=== PATIENT | male | born 1945 | race African-American/Black ===

== ENCOUNTER 2016-04-19 09:17 | Inpatient (IN) | payer MEDICARE, OTHER ==
[~2016-04-19] VITALS: Ht 165.1 cm; Wt 100.0 kg
[~2016-04-19 09:17] MED LIST: AMLO5TAB22 PO; DEPA500T3 PO; GLUC10TA3 PO; HYDR-2768 PO; INVE9TAB IM; LISI20 PO; LISI40TA PO; METF-324 PO; NAPR-576 PO; PERP4 PO
[2016-04-19 09:20] VITALS: BP 130/60; PULSE 78; RESP 18; TEMP 98.2; O2SAT 95
[2016-04-19] MEDS ORDERED: DEXTROSE 5%-LACTATED RING INJ 1,000 ML IV SCH (09:24)
[2016-04-19] MEDS ORDERED: SODIUM CHLORIDE 0.9% FLUSH 5 ML FLUSH IVF PRN (09:30)
--- NOTE | 2016-04-19 10:06 | PD ---
HPI Chief Complaint: Fall Time Seen by Provider: 09:24 Travel History International Travel<30 days: No Contact w/Intl Traveler<30days: No Traveled to known affect area: No History of Present Illness HPI 70-year-old male presents by ambulance after he had a fall where he was found on the ground. Patient denies any pain currently but is a very poor historian. The ambulance team states that he had an episode of low sugar and fall yesterday but did not come to the hospital. Today given it was his second episode he had to come in. Accu-Chek with them was 38 and he was given 250 of D10 and then his Accu-Chek was 137. They state that his mentation was the same when his sugar was low where he was mumbling as he is now. Patient tells me he likes buffalo wings but cannot give me other history than he thinks he may be fell PFSH Past Medical History Arthritis: Yes Asthma: No Autoimmune Disease: No Blood Disorders: No Bipolar Disorder: Yes Anxiety: Yes Depression: Yes Heart Rhythm Problems: No Cancer: No Cardiovascular Problems: Yes High Cholesterol: No Chemotherapy: No Chest Pain: No Congestive Heart Failure: No COPD: No Cerebrovascular Accident: No Diabetes: Yes Patient Takes Glucophage: No Diminished Hearing: No Endocrine: Yes GERD: No Glaucoma: No Genitourinary: No Headaches: No Hepatitis: No Hiatal Hernia: No Hypertension: Yes Immune Disorder: No Kidney Stones: No Musculoskeletal: Yes Neurologic: Yes ( PER EVAC HAS HX OF NERVE DEFICIT/DAMAGE) Psychiatric: Yes (SCHIZOPHRENIA, BIPOLAR) Reproductive: No Respiratory: No Migraines: No Myocardial Infarction: No Radiation Therapy: No Renal Failure: No Schizophrenia: Yes Seizures: Yes Sickle Cell Disease: No Sleep Apnea: No Thyroid Disease: No Ulcer: No Tetanus Vaccination: Unknown Influenza Vaccination: Yes Past Surgical History Abdominal Surgery: No AICD: No Appendectomy: No Arteriovenous Shunt: No Cardiac Surgery: No Cholecystectomy: No Ear Surgery: No Endocrine Surgery: No Eye Surgery: No Genitourinary Surgery: No Gynecologic Surgery: No Insulin Pump: No Joint Replacement: No Neurologic Surgery: No Oral Surgery: No Pacemaker: No Thoracic Surgery: Yes Other Surgery: No Social History Alcohol Use: No Tobacco Use: No (03/27 PPD) Substance Use: No Allergies-Medications (Allergen,Severity, Reaction): Coded Allergies: No Known Allergies (Verified , 04/19/16) UNABLE TO CONFIRM ALLERGIES AT THIS TIME Reported Meds & Prescriptions Reported Meds & Active Scripts Active Reported Ultram (Tramadol HCl) 50 Mg Tab 50 Mg PO Q12HR Tradjenta (Linagliptin) 5 Mg Tab 5 Mg PO DAILY Flomax (Tamsulosin HCl) 0.4 Mg Cap 0.4 Mg PO HS Perphenazine 8 Mg Tab 8 Mg PO HS Ditropan (Oxybutynin Chloride) 5 Mg Tab 5 Mg PO BID Naprosyn (Naproxen) 500 Mg Tab 500 Mg PO BID Prinivil (Lisinopril) 20 Mg Tab 20 Mg PO DAILY Glucotrol XL (Glipizide) 10 Mg Srinath 10 Mg PO BID Lasix (Furosemide) 40 Mg Tab 40 Mg PO DAILY Colace (Docusate Sodium) 100 Mg Cap 100 Mg PO BID Depakote ER (Divalproex Sodium) 500 Mg Srinath 1,500 Mg PO HS Amlodipine (Amlodipine Besylate) 5 Mg Tab 5 Mg PO DAILY Review of Systems Except as stated in HPI: all other systems reviewed are Neg Physical Exam Narrative General: 70 y/o patient in no apparent distress wearing a baseball cap and baseball helmet that he wears all the time per staff Skin: Warm and dry Eyes: Pupils equal NECK: no pain with palpation and range of motion Cardiovascular: Regular rate and rhythm Respiratory: Normal respiratory effort noted, clear to auscultation bilaterally Abdomen: soft, nontender, nondistended Back: No step-offs, midline spine nontender with palpation Extremities: No pain over main joints Neuro: awake, moves all extremities, clear speech, knows name Data Data Last Documented VS Vital Signs Date Time Temp Pulse Resp B/P Pulse Ox O2 Delivery O2 Flow Rate FiO2 04/19/16 09:24 95 Room Air 04/19/16 09:20 98.2 78 18 130/60 Orders Basic Metabolic Panel (Bmp) (04/19/16 09:24) Complete Blood Count With Diff (04/19/16 09:24) Prothrombin Time / Inr (Pt) (04/19/16 09:24) Act Partial Throm Time (Ptt) (04/19/16 09:24) Chest, Single Ap (04/19/16 09:24) Pelvis, Ap Only (Routine) (04/19/16 09:24) Ct Brain W/O Iv Contrast(Rout) (04/19/16 09:24) Iv Access Insert/Monitor (04/19/16 09:24) Ecg Monitoring (04/19/16 09:24) Oximetry (04/19/16 09:24) Sodium Chloride 0.9% Flush (Ns Flush) (04/19/16 09:30) Electrocardiogram (04/19/16 ) Urinalysis - C+S If Indicated (04/19/16 09:24) Blood Glucose (04/19/16 09:24) Dextrose 5%-Lactated Ring Inj (D5-Lr Inj (04/19/16 09:24) Blood Glucose (04/19/16 10:04) Blood Glucose (04/19/16 10:45) Sodium Chlor 0.9% 1000 Ml Inj (Ns 1000 M (04/19/16 11:00) Cath For Specimen (04/19/16 10:48) Urine Culture (04/19/16 11:15) Ceftriaxone Inj (Rocephin Inj) (04/19/16 11:45) Admit Order (Ed Use Only) (04/19/16 11:45) Labs Laboratory Tests Test 04/19/16 04/19/16 10:05 11:15 White Blood Count 4.4 TH/MM3 Red Blood Count 3.59 MIL/MM3 Hemoglobin 11.2 GM/DL Hematocrit 33.9 % Mean Corpuscular Volume 94.6 FL Mean Corpuscular Hemoglobin 31.2 PG Mean Corpuscular Hemoglobin 32.9 % Concent Red Cell Distribution Width 15.1 % Platelet Count 206 TH/MM3 Mean Platelet Volume 10.0 FL Neutrophils (%) (Auto) 53.1 % Lymphocytes (%) (Auto) 30.6 % Monocytes (%) (Auto) 12.7 % Eosinophils (%) (Auto) 2.8 % Basophils (%) (Auto) 0.8 % Neutrophils # (Auto) 2.4 TH/MM3 Lymphocytes # (Auto) 1.4 TH/MM3 Monocytes # (Auto) 0.6 TH/MM3 Eosinophils # (Auto) 0.1 TH/MM3 Basophils # (Auto) 0.0 TH/MM3 CBC Comment DIFF FINAL Differential Comment Prothrombin Time 11.1 SEC Prothromb Time International 1.0 RATIO Ratio Activated Partial 25.1 SEC Thromboplast Time Sodium Level 140 MEQ/L Potassium Level 4.9 MEQ/L Chloride Level 105 MEQ/L Carbon Dioxide Level 33.5 MEQ/L Anion Gap 2 MEQ/L Blood Urea Nitrogen 41 MG/DL Creatinine 1.83 MG/DL Estimat Glomerular Filtration 45 ML/MIN Rate Random Glucose 77 MG/DL Calcium Level 9.5 MG/DL Urine Color YELLOW Urine Turbidity HAZY Urine pH 6.0 Urine Specific [place] 1.014 Urine Protein TRACE mg/dL Urine Glucose (UA) NEG mg/dL Urine Ketones NEG mg/dL Urine Occult Blood LARGE Urine Nitrite NEG Urine Bilirubin NEG Urine Urobilinogen LESS THAN 2.0 MG/DL Urine Leukocyte Esterase LARGE Urine RBC 152 /hpf Urine WBC /hpf Microscopic Urinalysis Comment CULTURE INDICATED MDM Medical Decision Making Medical Screen Exam Complete: Yes Emergency Medical Condition: Yes Medical Record Reviewed: Yes (past history confirmed) Interpretation(s) CBC & BMP Diagram 04/19/16 10:05 ua with uti Last 24 hours Impressions Pelvis X-Ray 04/19/16923 Signed Impressions: Service Date/Time: Tuesday, April 19, 2016 09:50 - CONCLUSION: Intact pelvis Porfirio Sharpe MD Head CT 04/19/16923 Signed Impressions: Service Date/Time: Tuesday, April 19, 2016 10:20 - CONCLUSION: Negative examination Porfirio Sharpe MD Chest X-Ray 04/19/16923 Signed Impressions: Service Date/Time: Tuesday, April 19, 2016 09:45 - CONCLUSION: No acute disease. Porfirio Sharpe MD Differential Diagnosis Hypoglycemia, renal failure, UTI, traumatic injury.... Narrative Course Will check blood work, trauma imaging and placed on D5 LR to prevent further dropping glucose but if continues to drop will need to be switched to D10 Initial Accu-Chek 77 but D5 has not been started so we will reassess and 15 minutes after on D5 Accu-Chek is now in the 60s so given trauma workup is negative and he can now have oral Will give oral glucose and reassess glucose now in eighties after lunch, but Given second episode of hypoglycemia since yesterday and Accu-Chek is continuing to drop. He'll need to be admitted in the hospital given he is on oral hypoglycemic medication with UTI and acute renal failure Physician Communication Physician Communication dr Fisher agrees to admission Diagnosis Primary Impression: Hypoglycemia Additional Impressions: Fall Qualified Code: W19.XXXA - Fall, initial encounter Acute renal failure Qualified Code: N17.9 - Acute renal failure, unspecified acute renal failure type UTI (urinary tract infection) Qualified Code: N39.0 - Urinary tract infection without hematuria, site unspecified Admitting Information Admitting Physician Requests: Admit Tegan Baez MD Apr 19, 2016 10:06
--- NOTE | 2016-04-19 10:10 | RADRPT ---
EXAM DATE/TIME: 04/19/2016 09:45 [facility] COMPARISON: CHEST PA & LAT, September 15, 2010, 13:49 report only INDICATIONS : Short of breath. MEDICAL HISTORY : None. SURGICAL HISTORY : None. ENCOUNTER: Initial ACUITY: 1 day PAIN SCORE: 0/10 LOCATION: Bilateral chest FINDINGS: A single view of the chest demonstrates the lungs to be symmetrically aerated without evidence of mas s, infiltrate or effusion. The cardiomediastinal contours are unremarkable. Osseous structures are intact. CONCLUSION: No acute disease. Porfirio Sharpe MD on April 19, 2016 at 10:08 Board Certified Radiologist. This report was verified electronically.
--- NOTE | 2016-04-19 10:11 | RADRPT ---
EXAM DATE/TIME: 04/19/2016 09:50 [facility] COMPARISON: No previous studies available for comparison. INDICATIONS : Bilateral hip pain with no known injury. MEDICAL HISTORY : None. SURGICAL HISTORY : None. ENCOUNTER: Initial ACUITY: 1 day PAIN SCORE: 0/10 LOCATION: Bilateral Pelvis FINDINGS: A single frontal view of the pelvis demonstrates no evidence of fracture. The bony pelvic ring is in tact. Bony mineralization is normal. The soft tissues are intact. CONCLUSION: Intact pelvis Porfirio Sharpe MD on April 19, 2016 at 10:08 Board Certified Radiologist. This report was verified electronically.
[2016-04-19 10:28] LABS: AUTOMATED NEUTROPHIL # 2.4 TH/MM3 (1.8-7.7); BASOPHIL % 0.8 % (0.0-2.0); EOSINOPHIL # 0.1 TH/MM3 (0-0.4); EOSINOPHIL % 2.8 % (0.0-4.0); HEMATOCRIT 33.9 % (39.0-51.0); HEMO FLAGS DIFF FINAL; LYMPH % 30.6 % (9.0-44.0); LYMPHOCYTE # 1.4 TH/MM3 (1.0-4.8); MEAN CELL VOLUME 94.6 FL (80.0-100.0); MEAN CORPUSCULAR HEMOGLOBIN 31.2 PG (27.0-34.0); MEAN CORPUSCULAR HGB CONC 32.9 % (32.0-36.0); MONO % 12.7 % (0.0-8.0); NEUT % 53.1 % (16.0-70.0); PLATELET COUNT 206 TH/MM3 (150-450); RED BLOOD COUNT 3.59 MIL/MM3 (4.50-5.90); RED CELL DISTRIBUTION WIDTH 15.1 % (11.6-17.2); WHITE BLOOD COUNT 4.4 TH/MM3 (4.0-11.0)
[2016-04-19 10:34] LABS: APTT (PATIENT) 25.1 SEC (24.3-30.1); PROTHROMBIN TIME - PATIENT 11.1 SEC (9.8-11.6)
--- NOTE | 2016-04-19 10:35 | RADRPT ---
EXAM DATE/TIME: 04/19/2016 10:20 [facility] COMPARISON: No previous studies available for comparison. INDICATIONS : Fall yesterday RADIATION DOSE: 56.35 CTDIvol (mGy) MEDICAL HISTORY : Hypertension. SURGICAL HISTORY : None. ENCOUNTER: Initial ACUITY: 1 day PAIN SCALE: 0/10 LOCATION: cranial TECHNIQUE: Multiple contiguous axial images were obtained of the head. Using automated exposure control and adj ustment of the mA and/or kV according to patient size, radiation dose was kept as low as reasonably a chievable to obtain optimal diagnostic quality images. FINDINGS: CEREBRUM: The ventricles are normal for age. No evidence of midline shift, mass lesion, hemorrhage or acute in farction. No extra-axial fluid collections are seen. POSTERIOR FOSSA: The cerebellum and brainstem are intact. The 4th ventricle is midline. The cerebellopontine angle i s unremarkable. EXTRACRANIAL: The visualized portion of the orbits is intact. SKULL: The calvaria is intact. No evidence of skull fracture. CONCLUSION: Negative examination Porfirio Sharpe MD on April 19, 2016 at 10:32 Board Certified Radiologist. This report was verified electronically.
[2016-04-19 10:41] LABS: BICARBONATE 33.5 MEQ/L (21.0-32.0); POTASSIUM 4.9 MEQ/L (3.5-5.1)
[2016-04-19] MEDS ORDERED: SODIUM CHLOR 0.9% 1000 ML INJ 1,000 ML IV ONE (11:00)
[2016-04-19] MEDS ORDERED: OXYB5TAB10 PO (11:15)
[2016-04-19] MEDS ORDERED: DEPA500T3 PO (11:15)
[2016-04-19] MEDS ORDERED: AMLO5TAB2 PO (11:15)
[2016-04-19] MEDS ORDERED: TAMS5CAP PO (11:15)
[2016-04-19] MEDS ORDERED: TRAD5TAB PO (11:15)
[2016-04-19] MEDS ORDERED: FURO1TAB60 PO (11:15)
[2016-04-19] MEDS ORDERED: ULTR50TA5 PO (11:15)
[2016-04-19] MEDS ORDERED: NAPR500 PO (11:15)
[2016-04-19] MEDS ORDERED: COLA100C3 PO (11:15)
[2016-04-19] MEDS ORDERED: PRIN20TA2 PO (11:15)
[2016-04-19] MEDS ORDERED: PERP8TAB4 PO (11:15)
[2016-04-19] MEDS ORDERED: GLIP-146 PO (11:15)
[2016-04-19 11:29] LABS: BLOOD, URINE LARGE (NEG); COMMENT (UR) CULTURE INDICATED; CULTURE IF INDICATED CULTURE INDICATED; GLUCOSE,URINE NEG (NEG); KETONE, URINE NEG (NEG); NITRITE,URINE NEG (NEG); URINE COLOR YELLOW (YELLW/STRAW)
[2016-04-19] MEDS ORDERED: cefTRIAXone INJ 1,000 MG in SODIUM CHLORIDE 0.9% INJ 100 ML IV ONE (11:45)
[2016-04-19] MEDS ORDERED: ACETAMINOPHEN 325 MG TAB PO PRN (13:45)
[2016-04-19] MEDS ORDERED: ONDANSETRON HCL 4 MG/2 ML VIAL IVP PRN (13:45)
[2016-04-19] MEDS ORDERED: SODIUM CHLORIDE 0.9% FLUSH 5 ML FLUSH FLUSH PRN (13:45)
--- NOTE | 2016-04-19 14:57 | EKG ---
Date Performed: 04/19/2016 Time Performed: 10:13:02 PTAGE: 70 years EKG: Significant baseline artifact Artifact precludes accurate rhythm interpretation BORDERLINE LEFT AXIS DEVIATION RIGHT BUNDLE BRANCH BLOCK Nonspecific T wave abnormality ABNORMAL ECG COMPARED TO PRIOR ELECTROCARDIOGRAM, No definite change although I cannot accurately compare rhythm due to artif act. PREVIOUS TRACING : 12/18/2012 13.16 DOCTOR: Danilo Hoang Interpretating Date/Time 04/19/2016 14:55:26
[2016-04-19 16:05] VITALS: BP 126/67; PULSE 79; RESP 18; O2SAT 98
[2016-04-19] MEDS: SODIUM CHLOR 0.9% 1000 ML INJ 1,000 ML IV SCH ×2 (16:46→22:28)
[2016-04-19] MEDS: HEPARIN SODIUM - SQ 10,000 UNITS/ML VIAL SQ SCH ×2 (16:46→22:45)
[2016-04-19 17:26] VITALS: BP 135/71
[2016-04-19 18:36] VITALS: BP 152/76; PULSE 64; RESP 20; TEMP 98.1; O2SAT 94
[2016-04-19 20:00] VITALS: BP 171/67; PULSE 103; RESP 20; TEMP 97.6; O2SAT 91
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
[2016-04-19] MEDS ORDERED: DEXTROSE 50% IN WATER 50 ML VIAL(D50) IV PUSH PRN (20:30)
[2016-04-19] MEDS ORDERED: GLUCAGON 1 MG/ML VIAL OTHER PRN (20:30)
[2016-04-19] MEDS ORDERED: INSULIN ASPART SUPPLEMENTAL SCALE SQ SCH (21:00)
[2016-04-19] MEDS: SODIUM CHLORIDE 0.9% FLUSH 5 ML FLUSH FLUSH SCH (21:00)
[2016-04-19] MEDS: TAMSULOSIN HCL 0.4 MG CAP PO SCH (22:27)
[2016-04-19] MEDS: PERPHENAZINE 4 MG TAB PO SCH (22:28)
[2016-04-19] MEDS: OXYBUTYNIN CHLORIDE 5 MG TAB PO SCH (22:28)
[2016-04-19] MEDS: DOCUSATE SODIUM 100 MG CAP PO SCH (22:28)
[2016-04-19] MEDS: DIVALPROEX SODIUM E.R. 500 MG TAB PO SCH (22:44)
[2016-04-20] VITALS: BP 155/73; PULSE 92; RESP 20; TEMP 97.3; O2SAT 93
[2016-04-20] MEDS ORDERED: HALOPERIDOL LACTATE 5 MG/ML AMP IM ONE (06:15)
[2016-04-20] MEDS ORDERED: DEXTROSE 5% IN WATE 1000ML INJ 1,000 ML IV SCH (06:15)
[2016-04-20] MEDS: HEPARIN SODIUM - SQ 10,000 UNITS/ML VIAL SQ SCH ×3 (06:37→22:54)
[2016-04-20] MEDS: OXYBUTYNIN CHLORIDE 5 MG TAB PO SCH ×2 (09:00→22:52)
[2016-04-20] MEDS: SODIUM CHLORIDE 0.9% FLUSH 5 ML FLUSH FLUSH SCH ×2 (09:00→22:52)
[2016-04-20] MEDS: amLODIPine BESYLATE 5 MG TAB PO SCH (09:00)
[2016-04-20] MEDS: DOCUSATE SODIUM 100 MG CAP PO SCH ×2 (09:46→22:52)
[2016-04-20] MEDS: cefTRIAXone INJ 1,000 MG in SODIUM CHLORIDE 0.9% INJ 100 ML IV SCH (13:19)
[2016-04-20] MEDS ORDERED: LINAGLIPTIN 5 MG PO SCH (16:00)
[2016-04-20] MEDS: SODIUM CHLOR 0.9% 1000 ML INJ 1,000 ML IV SCH (17:15)
[2016-04-20 17:16] VITALS: BP 144/70; PULSE 83; RESP 18; TEMP 98.5; O2SAT 95
--- NOTE | 2016-04-20 17:17 | HHI.PR ---
Subjective Remarks Patient denies cp/sob Patient is more coherent denies fevers/chills denies abdominal pain, nausea or vomiting states he ate well Objective Vitals Vital Signs Date Time Temp Pulse Resp B/P Pulse Ox O2 Delivery O2 Flow Rate FiO2 04/20/16 17:16 98.5 83 18 144/70 95 04/20/16 00:00 97.3 92 20 155/73 93 04/19/16 20:00 97.6 103 20 171/67 91 04/19/16 18:36 98.1 64 20 152/76 94 04/19/16 17:26 82 18 135/71 98 I/O 04/19/16 04/19/16 04/19/16 04/20/16 04/20/16 04/20/16 07:00 15:00 23:00 07:00 15:00 23:00 Intake Total 360 ml 890 ml 720 ml Output Total 520 ml Balance 360 ml 370 ml 720 ml Intake Oral 360 ml 890 ml 720 ml Output Urine Total 520 ml # Voids 5 3 # Bowel Movements 1 1 Result Diagram: 04/19/16 1005 04/19/16 1005 Imaging Last Impressions Pelvis X-Ray 04/19/16923 Signed Impressions: Service Date/Time: Tuesday, April 19, 2016 09:50 - CONCLUSION: Intact pelvis Porfirio Sharpe MD Head CT 04/19/16923 Signed Impressions: Service Date/Time: Tuesday, April 19, 2016 10:20 - CONCLUSION: Negative examination Porfirio Sharpe MD Chest X-Ray 04/19/16923 Signed Impressions: Service Date/Time: Tuesday, April 19, 2016 09:45 - CONCLUSION: No acute disease. Porfirio Sharpe MD Objective Remarks GENERAL: This is a well-nourished, well-developed patient, in no respiratory distress. SKIN: No rashes, ecchymoses or lesions. Cool and dry. HEAD: Atraumatic. Normocephalic. No temporal or scalp tenderness. EYES: Pupils equal round and reactive. Extraocular motions intact. No scleral icterus. No injection or drainage. ENT: Nose without bleeding, purulent drainage or septal hematoma. Throat without erythema, tonsillar hypertrophy or exudate. Uvula midline. Airway patent. NECK: Trachea midline. No JVD or lymphadenopathy. Supple, nontender, no meningeal signs. CARDIOVASCULAR: Regular rate and rhythm without murmurs, gallops, or rubs. RESPIRATORY: Clear to auscultation. Breath sounds equal bilaterally. No wheezes , rales, or rhonchi. GASTROINTESTINAL: Abdomen soft, non-tender, nondistended. No hepato-splenomegaly , or palpable masses. No guarding. Abdomen is obese MUSCULOSKELETAL: Extremities without clubbing, cyanosis, or edema. No joint tenderness, effusion, or edema noted. No calf tenderness. Negative Homans sign bilaterally. NEUROLOGICAL: Awake and alert. Cranial nerves II through XII intact. Motor and sensory grossly within normal limits. Five out of 5 muscle strength in all muscle groups. normal speech A/P Problem List: (1) Hypoglycemia ICD Code: E16.2 Status: Acute Plan: The patient was admitted to the medical floor. D5LR was discontinued, patient placed on normal saline Resume Tradjenta and Glipizide Continue to monitor Accu-Cheks and continue necessary with insulin NovoLog. (2) Fall ICD Code: W19.XXXA Status: Resolved Plan: Fall likely due to hypoglycemia. CT head on presentation to the hospital was negative. (3) UTI (urinary tract infection) ICD Code: N39.0 Status: Acute Plan: UTI likely caused the patient to have or oral intake and therefore became hypoglycemic. Patient was started on IV Rocephin, continue Urine culture showed immature growth, been reincubated (4) VENKAT (acute kidney injury) ICD Code: N17.9 Status: Acute Plan: Continue IV fluids, continue to monitor BUN/creatinine, strict I's and O' s. Avoid nephrotoxic agents (5) Encephalopathy ICD Code: G93.40 Status: Acute Plan: Encephalopathy likely metabolic secondary to hypoglycemia and possibly related to urinary tract infection. Seems to be improving, the patient is more coherent today. (6) HTN (hypertension) ICD Code: I10 Status: Acute Plan: Blood pressure stable. (7) Hyperlipidemia ICD Code: E78.5 Status: Chronic Plan: Continue statin. Check lipid profile. (8) Urinary incontinence ICD Code: R32 Status: Chronic Plan: Patient being treated with oxybutynin and Flomax. If oxybutynin is not ineffective the patient then will likely need outpatient urology follow-up. Discharge Planning Continue to monitor in the medical floor. Possible discharge in 1-2 days pending improvement of renal failure. Problem Qualifiers (1) Fall: Qualified Code: W19.XXXA - Fall, initial encounter (2) UTI (urinary tract infection): Qualified Code: N39.0 - Urinary tract infection without hematuria, site unspecified (3) HTN (hypertension): Qualified Code: I10 - Essential hypertension (4) Urinary incontinence: Qualified Code: R32 - Urinary incontinence, unspecified type Juan David Love MD Apr 20, 2016 17:17
[2016-04-20 20:00] VITALS: BP 126/77; PULSE 69; RESP 20; TEMP 98.2; O2SAT 95
[2016-04-20] MEDS: DIVALPROEX SODIUM E.R. 500 MG TAB PO SCH (22:52)
[2016-04-20] MEDS: TAMSULOSIN HCL 0.4 MG CAP PO SCH (22:52)
[2016-04-20] MEDS: PERPHENAZINE 4 MG TAB PO SCH (22:53)
[2016-04-20] MEDS: glipiZIDE 10 MG TAB PO SCH (22:53)
[2016-04-21] VITALS: BP 130/76; PULSE 82; RESP 19; TEMP 97.9; O2SAT 93
[2016-04-21] MEDS: SODIUM CHLOR 0.9% 1000 ML INJ 1,000 ML IV SCH ×3 (03:15→22:45)
[2016-04-21 04:57] VITALS: BP 139/65; PULSE 64; RESP 19; TEMP 97; O2SAT 93
[2016-04-21] MEDS: HEPARIN SODIUM - SQ 10,000 UNITS/ML VIAL SQ SCH ×3 (06:43→22:41)
[2016-04-21 08:00] VITALS: BP 138/65; PULSE 51; RESP 20; TEMP 96.3; O2SAT 96
[2016-04-21] MEDS: amLODIPine BESYLATE 5 MG TAB PO SCH (08:34)
[2016-04-21] MEDS: DOCUSATE SODIUM 100 MG CAP PO SCH ×2 (08:34→22:41)
[2016-04-21] MEDS: glipiZIDE 10 MG TAB PO SCH (08:34)
[2016-04-21] MEDS: SODIUM CHLORIDE 0.9% FLUSH 5 ML FLUSH FLUSH SCH ×2 (08:34→22:43)
[2016-04-21] MEDS: OXYBUTYNIN CHLORIDE 5 MG TAB PO SCH ×2 (08:34→22:42)
[2016-04-21 08:39] LABS: AUTOMATED NEUTROPHIL # 2.6 TH/MM3 (1.8-7.7); BASOPHIL % 0.6 % (0.0-2.0); EOSINOPHIL # 0.2 TH/MM3 (0-0.4); EOSINOPHIL % 2.9 % (0.0-4.0); HEMATOCRIT 33.3 % (39.0-51.0); HEMO FLAGS DIFF FINAL; LYMPH % 41.1 % (9.0-44.0); LYMPHOCYTE # 2.6 TH/MM3 (1.0-4.8); MEAN CELL VOLUME 94.5 FL (80.0-100.0); MEAN CORPUSCULAR HEMOGLOBIN 31.7 PG (27.0-34.0); MEAN CORPUSCULAR HGB CONC 33.6 % (32.0-36.0); MONO % 14.7 % (0.0-8.0); NEUT % 40.7 % (16.0-70.0); PLATELET COUNT 198 TH/MM3 (150-450); RED BLOOD COUNT 3.53 MIL/MM3 (4.50-5.90); RED CELL DISTRIBUTION WIDTH 15.2 % (11.6-17.2); WHITE BLOOD COUNT 6.3 TH/MM3 (4.0-11.0)
[2016-04-21 08:54] LABS: ALKALINE PHOSPHATASE 61 U/L (45-117); ALT (GPT) 25 U/L (12-78); ANION GAP 5 MEQ/L (5-15); AST (GOT) 17 U/L (15-37); BLOOD UREA NITROGEN 33 MG/DL (7-18); CHLORIDE 106 MEQ/L (98-107); GLOMERULAR FILTRATION RATE 52 ML/MIN (>89); MAGNESIUM 2.3 MG/DL (1.5-2.5); POTASSIUM 5.5 MEQ/L (3.5-5.1); SODIUM (NA) 138 MEQ/L (136-145); TOTAL BILIRUBIN ADULT 0.2 MG/DL (0.2-1.0)
--- NOTE | 2016-04-21 11:28 | HHI.PR ---
Subjective Remarks deferred entry - patient seen earlier at patient denies cp/sob denies dizziness no further episodes of hypoglycemia stable vital signs Objective Vitals Vital Signs Date Time Temp Pulse Resp B/P Pulse Ox O2 Delivery O2 Flow Rate FiO2 04/21/16 08:00 96.3 51 20 138/65 96 04/21/16 04:57 97.0 64 19 139/65 93 04/21/16 00:00 97.9 82 19 130/76 93 04/20/16 20:00 98.2 69 20 126/77 95 04/20/16 17:16 98.5 83 18 144/70 95 I/O 04/20/16 04/20/16 04/20/16 04/21/16 04/21/16 04/21/16 07:00 15:00 23:00 07:00 15:00 23:00 Intake Total 720 ml Output Total 300 ml 400 ml Balance 720 ml -300 ml -400 ml Intake Oral 720 ml Output Urine Total 300 ml 400 ml # Voids 3 2 # Bowel Movements 1 Result Diagram: 04/21/16 0749 04/21/1648 Imaging Last Impressions Pelvis X-Ray 04/19/16923 Signed Impressions: Service Date/Time: Tuesday, April 19, 2016 09:50 - CONCLUSION: Intact pelvis Porfirio Sharpe MD Head CT 04/19/16923 Signed Impressions: Service Date/Time: Tuesday, April 19, 2016 10:20 - CONCLUSION: Negative examination Porfirio Sharpe MD Chest X-Ray 04/19/16923 Signed Impressions: Service Date/Time: Tuesday, April 19, 2016 09:45 - CONCLUSION: No acute disease. Porfirio Sharpe MD Objective Remarks GENERAL: This is a well-nourished, well-developed patient, in no respiratory distress. SKIN: No rashes, ecchymoses or lesions. Cool and dry. HEAD: Atraumatic. Normocephalic. No temporal or scalp tenderness. EYES: Pupils equal round and reactive. Extraocular motions intact. No scleral icterus. No injection or drainage. ENT: Nose without bleeding, purulent drainage or septal hematoma. Throat without erythema, tonsillar hypertrophy or exudate. Uvula midline. Airway patent. NECK: Trachea midline. No JVD or lymphadenopathy. Supple, nontender, no meningeal signs. CARDIOVASCULAR: Regular rate and rhythm without murmurs, gallops, or rubs. RESPIRATORY: Clear to auscultation. Breath sounds equal bilaterally. No wheezes , rales, or rhonchi. GASTROINTESTINAL: Abdomen soft, non-tender, nondistended. No hepato-splenomegaly , or palpable masses. No guarding. Abdomen is obese MUSCULOSKELETAL: Extremities without clubbing, cyanosis, or edema. No joint tenderness, effusion, or edema noted. No calf tenderness. Negative Homans sign bilaterally. NEUROLOGICAL: Awake and alert. Cranial nerves II through XII intact. Motor and sensory grossly within normal limits. Five out of 5 muscle strength in all muscle groups. normal speech Medications and IVs Current Medications Medications (Trade) Dose Ordered Sig/Arpita Route Start Time Stop Time Status Last Admin (NS Flush) 2 ml UNSCH PRN FLUSH 04/19/16 13:45 (NS Flush) 2 ml BID FLUSH 04/19/16 21:00 04/21/16 22:43 (Tylenol) 650 mg Q4H PRN PO 04/19/16 13:45 (Zofran Inj) 4 mg Q6H PRN IVP 04/19/16 13:45 Heparin Sodium (Porcine) 5000 units 5,000 units Q8H SQ 04/19/16 15:00 04/21/16 22:41 (Rocephin Inj/NS Inj) 100 ml @ 200 mls/hr Q24H IV 04/20/16 12:00 04/21/16 11:58 (Norvasc) 5 mg DAILY PO 04/20/16 09:00 04/21/16 08:34 (Depakote Er) 1,500 mg HS PO 04/19/16 21:00 04/21/16 22:41 (Colace) 100 mg BID PO 04/19/16 21:00 04/21/16 22:41 (Ditropan) 5 mg BID PO 04/19/16 21:00 04/21/16 22:42 (Trilafon) 8 mg HS PO 04/19/16 21:00 04/21/16 22:42 (Flomax) 0.4 mg HS PO 04/19/16 21:00 04/21/16 22:41 (D50w (Vial) Inj) 25 ml UNSCH PRN IV PUSH 04/19/16 20:30 (Glucagon Inj) 1 mg UNSCH PRN OTHER 04/19/16 20:30 Patient Own Medication PT OWN MED: Linaglip... DAILY PO 04/20/16 16:00 Hold (NS 1000 ml Inj) 1,000 ml @ 150 mls/hr Q6H40M IV 04/20/16 17:15 04/21/16 22:45 (Glucotrol) 5 mg BID PO 04/21/16 21:00 04/21/16 22:42 A/P Problem List: (1) Hypoglycemia ICD Code: E16.2 Status: Acute Plan: The patient was admitted to the medical floor. D5LR was discontinued, patient placed on normal saline Resume Tradjenta and Glipizide Continue to monitor Accu-Cheks and continue necessary with insulin NovoLog. 04/21 Patient blood sugar is greatly improved down from 200 to 96. This is probably to tight of a control and predisposes patient to hypoglycemia. Will decrease the dose of Glypizide to 5 mg po bid. hba1c 6.4 (2) Fall ICD Code: W19.XXXA Status: Resolved Plan: Fall likely due to hypoglycemia. CT head on presentation to the hospital was negative. (3) UTI (urinary tract infection) ICD Code: N39.0 Status: Acute Plan: UTI likely caused the patient to have or oral intake and therefore became hypoglycemic. Patient was started on IV Rocephin, continue Urine culture showed immature growth, been reincubated (4) VENKAT (acute kidney injury) ICD Code: N17.9 Status: Acute Plan: Continue IV fluids, continue to monitor BUN/creatinine, strict I's and O' s. Avoid nephrotoxic agents (5) Encephalopathy ICD Code: G93.40 Status: Acute Plan: Encephalopathy likely metabolic secondary to hypoglycemia and possibly related to urinary tract infection. Seems to be improving, the patient is more coherent today. (6) HTN (hypertension) ICD Code: I10 Status: Acute Plan: Blood pressure stable. (7) Hyperlipidemia ICD Code: E78.5 Status: Chronic Plan: Continue statin. Check lipid profile. (8) Urinary incontinence ICD Code: R32 Status: Chronic Plan: Patient being treated with oxybutynin and Flomax. If oxybutynin is not ineffective the patient then will likely need outpatient urology follow-up. Discharge Planning Continue to monitor in the medical floor. Possible discharge in 1-2 days pending improvement of renal failure. Problem Qualifiers (1) Fall: Qualified Code: W19.XXXA - Fall, initial encounter (2) UTI (urinary tract infection): Qualified Code: N39.0 - Urinary tract infection without hematuria, site unspecified (3) HTN (hypertension): Qualified Code: I10 - Essential hypertension (4) Urinary incontinence: Qualified Code: R32 - Urinary incontinence, unspecified type Juan David Love MD Apr 21, 2016 11:28
[2016-04-21] MEDS ORDERED: SODIUM POLYSTYRENE SULFONATE SUSP 15 GM/60 ML CUP PO ONE (11:30)
[2016-04-21] MEDS: cefTRIAXone INJ 1,000 MG in SODIUM CHLORIDE 0.9% INJ 100 ML IV SCH (11:58)
[2016-04-21 12:00] VITALS: BP 137/86; PULSE 62; RESP 20; TEMP 97.6; O2SAT 95
[2016-04-21 13:23] LABS: HEMOGLOBIN A1a 1.4 %; HEMOGLOBIN Ao 81.2 %; HEMOGLOBIN F 1.2 %; HEMOGLOBIN LA1C 2.6 %; HEMOGLOBIN P3 6.8 %
[2016-04-21 16:00] VITALS: BP 143/74; PULSE 52; RESP 20; TEMP 98.3; O2SAT 96
[2016-04-21 21:30] VITALS: BP 126/65; PULSE 58; RESP 17; TEMP 98.6; O2SAT 96
[2016-04-21] MEDS: TAMSULOSIN HCL 0.4 MG CAP PO SCH (22:41)
[2016-04-21] MEDS: DIVALPROEX SODIUM E.R. 500 MG TAB PO SCH (22:41)
[2016-04-21] MEDS: PERPHENAZINE 4 MG TAB PO SCH (22:42)
[2016-04-21] MEDS: glipiZIDE 5 MG TAB PO SCH (22:42)
[2016-04-22] VITALS (7 sets, daily range): BP systolic 112–160; BP diastolic 57–89; PULSE 58–88; RESP 18–22; TEMP 96.5–98.1; O2SAT 93–97
[2016-04-22] MEDS: SODIUM CHLOR 0.9% 1000 ML INJ 1,000 ML IV SCH ×4 (01:56→21:05)
[2016-04-22] MEDS: HEPARIN SODIUM - SQ 10,000 UNITS/ML VIAL SQ SCH ×3 (06:02→21:34)
[2016-04-22] MEDS: DOCUSATE SODIUM 100 MG CAP PO SCH ×2 (08:12→21:04)
[2016-04-22] MEDS: amLODIPine BESYLATE 5 MG TAB PO SCH (08:12)
[2016-04-22] MEDS: OXYBUTYNIN CHLORIDE 5 MG TAB PO SCH ×2 (08:12→21:04)
[2016-04-22] MEDS: glipiZIDE 5 MG TAB PO SCH ×2 (08:12→21:04)
[2016-04-22] MEDS: cefTRIAXone INJ 1,000 MG in SODIUM CHLORIDE 0.9% INJ 100 ML IV SCH (12:16)
[2016-04-22] MEDS: SODIUM CHLORIDE 0.9% FLUSH 5 ML FLUSH FLUSH SCH ×2 (12:17→21:04)
[2016-04-22] MEDS: CIPROFLOXACIN 400 MG PREMIX 200 ML IV SCH ×2 (16:39→21:04)
[2016-04-22] MEDS: TAMSULOSIN HCL 0.4 MG CAP PO SCH (21:04)
[2016-04-22] MEDS: DIVALPROEX SODIUM E.R. 500 MG TAB PO SCH (21:04)
[2016-04-22] MEDS: PERPHENAZINE 4 MG TAB PO SCH (21:05)
--- NOTE | 2016-04-22 21:17 | HHI.PR ---
Subjective Remarks Patient refusing labs patient feels fine denies fevers/chills denies cp/sob stable vital signs good urine output Objective Vitals Vital Signs Date Time Temp Pulse Resp B/P Pulse Ox O2 Delivery O2 Flow Rate FiO2 04/22/16 20:00 97.8 88 22 126/69 95 04/22/16 16:26 98.1 71 22 135/65 95 04/22/16 12:21 97.8 72 22 124/89 95 04/22/16 08:06 96.5 71 22 112/57 95 04/22/16 05:37 58 19 136/72 93 04/22/16 04:30 97.5 69 19 160/84 97 04/22/16 00:00 98.0 60 18 125/60 95 04/21/16 21:30 98.6 58 17 126/65 96 I/O 04/21/16 04/21/16 04/21/16 04/22/16 04/22/16 04/22/16 07:00 15:00 23:00 07:00 15:00 23:00 Intake Total 840 ml 280 ml 1750 ml 600 ml Output Total 400 ml 500 ml 1000 ml Balance -400 ml 340 ml 280 ml 750 ml 600 ml Intake Oral 840 ml 280 ml 800 ml 600 ml IV Total 950 ml Output Urine Total 400 ml 500 ml 1000 ml # Voids 3 2 # Bowel Movements 1 0 1 Result Diagram: 04/21/1649 04/21/1648 Imaging Last Impressions Pelvis X-Ray 04/19/16923 Signed Impressions: Service Date/Time: Tuesday, April 19, 2016 09:50 - CONCLUSION: Intact pelvis Porfirio Sharpe MD Head CT 04/19/16923 Signed Impressions: Service Date/Time: Tuesday, April 19, 2016 10:20 - CONCLUSION: Negative examination Porfirio Sharpe MD Chest X-Ray 04/19/16923 Signed Impressions: Service Date/Time: Tuesday, April 19, 2016 09:45 - CONCLUSION: No acute disease. Porfirio Sharpe MD Objective Remarks GENERAL: This is a well-nourished, well-developed patient, in no respiratory distress. SKIN: No rashes, ecchymoses or lesions. Cool and dry. HEAD: Atraumatic. Normocephalic. No temporal or scalp tenderness. EYES: Pupils equal round and reactive. Extraocular motions intact. No scleral icterus. No injection or drainage. ENT: Nose without bleeding, purulent drainage or septal hematoma. Throat without erythema, tonsillar hypertrophy or exudate. Uvula midline. Airway patent. NECK: Trachea midline. No JVD or lymphadenopathy. Supple, nontender, no meningeal signs. CARDIOVASCULAR: Regular rate and rhythm without murmurs, gallops, or rubs. RESPIRATORY: Clear to auscultation. Breath sounds equal bilaterally. No wheezes , rales, or rhonchi. GASTROINTESTINAL: Abdomen soft, non-tender, nondistended. No hepato-splenomegaly , or palpable masses. No guarding. Abdomen is obese MUSCULOSKELETAL: Extremities without clubbing, cyanosis, or edema. No joint tenderness, effusion, or edema noted. No calf tenderness. Negative Homans sign bilaterally. NEUROLOGICAL: Awake and alert. Cranial nerves II through XII intact. Motor and sensory grossly within normal limits. Five out of 5 muscle strength in all muscle groups. normal speech Medications and IVs Current Medications Medications (Trade) Dose Ordered Sig/Arpita Route Start Time Stop Time Status Last Admin (NS Flush) 2 ml UNSCH PRN FLUSH 04/19/16 13:45 (NS Flush) 2 ml BID FLUSH 04/19/16 21:00 04/22/16 21:04 (Tylenol) 650 mg Q4H PRN PO 04/19/16 13:45 (Zofran Inj) 4 mg Q6H PRN IVP 04/19/16 13:45 (Heparin Inj) 5,000 units Q8H SQ 04/19/16 15:00 04/22/16 16:35 (Norvasc) 5 mg DAILY PO 04/20/16 09:00 04/22/16 08:12 (Depakote Er) 1,500 mg HS PO 04/19/16 21:00 04/22/16 21:04 (Colace) 100 mg BID PO 04/19/16 21:00 04/22/16 21:04 (Ditropan) 5 mg BID PO 04/19/16 21:00 04/22/16 21:04 (Trilafon) 8 mg HS PO 04/19/16 21:00 04/22/16 21:05 (Flomax) 0.4 mg HS PO 04/19/16 21:00 04/22/16 21:04 (D50w (Vial) Inj) 25 ml UNSCH PRN IV PUSH 04/19/16 20:30 (Glucagon Inj) 1 mg UNSCH PRN OTHER 04/19/16 20:30 Patient Own Medication PT OWN MED: Linaglip... DAILY PO 04/20/16 16:00 Hold (NS 1000 ml Inj) 1,000 ml @ 150 mls/hr Q6H40M IV 04/20/16 17:15 04/22/16 01:56 Glipizide 5 mg 5 mg BID PO 04/21/16 21:00 04/22/16 21:04 (Cipro 400 Mg Premix) 200 ml @ 200 mls/hr Q8H IV 04/22/16 14:00 04/22/16 21:04 Urinary Catheter: No Vascular Central Line Catheter: No A/P Problem List: (1) Hypoglycemia ICD Code: E16.2 Status: Acute (2) Fall ICD Code: W19.XXXA Status: Resolved (3) UTI (urinary tract infection) ICD Code: N39.0 Status: Acute (4) VENKAT (acute kidney injury) ICD Code: N17.9 Status: Acute (5) Encephalopathy ICD Code: G93.40 Status: Acute (6) HTN (hypertension) ICD Code: I10 Status: Acute (7) Hyperlipidemia ICD Code: E78.5 Status: Chronic (8) Urinary incontinence ICD Code: R32 Status: Chronic (9) Hyperkalemia ICD Code: E87.5 Status: Acute Plan: Likely due to decreased K excretion due to UTI. Added potassium restriction to diet and patient is sp Kayexalate therapy on 04/21. However patient is refusing lab draws. Will check BMP in am. Assessment and Plan (1) Hypoglycemia Plan: The patient was admitted to the medical floor. Initially treated with D5LR and oral hypoglycemics held D5LR was discontinued, patient placed on normal saline Resumed Tradjenta and Glipizide Continue to monitor Accu-Cheks and continue necessary with insulin NovoLog. 04/21 Patient blood sugar is greatly improved down from 200 to 96. This is probably to tight of a control and predisposes patient to hypoglycemia. Will decrease the dose of Glypizide to 5 mg po bid. hba1c 6.4 04/22 Blood sugars with better control. Continue same dose Glipizide and Tradjenta for now. Glipizide may be titrated up if blood sugars start to rise. (2) Fall Plan: Fall likely due to hypoglycemia. CT head on presentation to the hospital was negative. (3) UTI (urinary tract infection) Plan: UTI likely caused the patient to have or oral intake and therefore became hypoglycemic. Patient was started on IV Rocephin, continue 04/22 Urine culture shows Enterococcus faecalis - Will switch antibiotic to IV Ciprofloxacin - may be discharged on oral ciprofloxacin to complete 10 days. (4) VENKAT (acute kidney injury) Plan: Continue IV fluids, continue to monitor BUN/creatinine, strict I's and O' s. Avoid nephrotoxic agents. 04/22 Check renal us. Patient refusing labs, however patient has good urine output and intake. Continue to monitor BMP. (5) Encephalopathy Plan: Encephalopathy likely metabolic secondary to hypoglycemia and possibly related to urinary tract infection. Seems to be improving, the patient is more coherent today. (6) HTN (hypertension) Plan: Blood pressure stable. Continue amlodipine (7) Hyperlipidemia Plan: Continue statin. Check lipid profile. (8) Urinary incontinence Plan: Patient being treated with oxybutynin and Flomax. If oxybutynin is not ineffective the patient then will likely need outpatient urology follow-up. Discharge Planning Possible Dc in am after renal us, K and creatinine improved. Problem Qualifiers (1) Fall: Qualified Code: W19.XXXA - Fall, initial encounter (2) UTI (urinary tract infection): Qualified Code: N39.0 - Urinary tract infection without hematuria, site unspecified (3) HTN (hypertension): Qualified Code: I10 - Essential hypertension (4) Urinary incontinence: Qualified Code: R32 - Urinary incontinence, unspecified type Juan David Love MD Apr 22, 2016 21:17
[2016-04-23] VITALS: BP 120/70; PULSE 82; RESP 18; TEMP 98.8; O2SAT 96
[2016-04-23] MEDS: SODIUM CHLOR 0.9% 1000 ML INJ 1,000 ML IV SCH ×3 (00:43→15:57)
[2016-04-23 04:00] VITALS: BP 120/88; PULSE 80; RESP 20; TEMP 97.2; O2SAT 98
[2016-04-23] MEDS: HEPARIN SODIUM - SQ 10,000 UNITS/ML VIAL SQ SCH ×3 (05:20→22:55)
[2016-04-23] MEDS: CIPROFLOXACIN 400 MG PREMIX 200 ML IV SCH ×3 (05:20→22:54)
[2016-04-23 07:53] VITALS: BP 125/58; PULSE 56; RESP 22; TEMP 96.9; O2SAT 92
[2016-04-23] MEDS: amLODIPine BESYLATE 5 MG TAB PO SCH (09:00)
[2016-04-23] MEDS: glipiZIDE 5 MG TAB PO SCH ×2 (09:00→20:59)
[2016-04-23] MEDS: OXYBUTYNIN CHLORIDE 5 MG TAB PO SCH ×2 (10:07→20:59)
[2016-04-23] MEDS: DOCUSATE SODIUM 100 MG CAP PO SCH ×2 (10:07→20:59)
[2016-04-23] MEDS: SODIUM CHLORIDE 0.9% FLUSH 5 ML FLUSH FLUSH SCH ×2 (10:08→20:59)
[2016-04-23 12:25] VITALS: BP 124/62; PULSE 62; RESP 22; TEMP 97.2; O2SAT 96
[2016-04-23] MEDS ORDERED: SODIUM POLYSTYRENE SULFONATE SUSP 15 GM/60 ML CUP PO ONE (13:00)
[2016-04-23 16:48] VITALS: BP 144/66; PULSE 64; RESP 22; TEMP 97.4; O2SAT 93
[2016-04-23 20:00] VITALS: BP 142/90; PULSE 78; RESP 30; TEMP 98.9; O2SAT 93
[2016-04-23] MEDS: DIVALPROEX SODIUM E.R. 500 MG TAB PO SCH (20:59)
[2016-04-23] MEDS: TAMSULOSIN HCL 0.4 MG CAP PO SCH (20:59)
[2016-04-23] MEDS: PERPHENAZINE 4 MG TAB PO SCH (20:59)
[2016-04-24] VITALS: BP 130/70; PULSE 78; RESP 22; TEMP 98.7; O2SAT 94
[2016-04-24] MEDS: SODIUM CHLOR 0.9% 1000 ML INJ 1,000 ML IV SCH (00:01)
[2016-04-24 04:00] VITALS: BP 132/82; PULSE 80; RESP 20; TEMP 98.8; O2SAT 93
[2016-04-24] MEDS: HEPARIN SODIUM - SQ 10,000 UNITS/ML VIAL SQ SCH ×2 (05:10→12:03)
[2016-04-24] MEDS: CIPROFLOXACIN 400 MG PREMIX 200 ML IV SCH ×2 (05:10→12:28)
--- NOTE | 2016-04-24 07:23 | HHI.PR ---
Subjective Remarks Date of service 04/23/16. Late entry. Patient seen the morning of 04/23/16. - Patient sitting up in chair. Says he is feeling well. Denies any chest pain or shortness of breath. He appears cooperative on my exam, however nursing reports he has refused medications in the past. Objective Vital Signs Date Time Temp Pulse Resp B/P Pulse Ox O2 Delivery O2 Flow Rate FiO2 04/24/16 04:00 98.8 80 20 132/82 93 04/24/16 00:00 98.7 78 22 130/70 94 04/23/16 20:00 98.9 78 30 142/90 93 04/23/16 16:48 97.4 64 22 144/66 93 04/23/16 12:25 97.2 62 22 124/62 96 04/23/16 07:53 96.9 56 22 125/58 92 I/O 04/23/16 04/23/16 04/23/16 04/24/16 04/24/16 04/24/16 07:00 15:00 23:00 07:00 15:00 23:00 Intake Total 200 ml 480 ml 634 ml Output Total 900 ml 750 ml 900 ml Balance -700 ml 480 ml -750 ml -266 ml Intake Oral 480 ml IV Total 200 ml 634 ml Output Urine Total 900 ml 750 ml 900 ml # Voids 5 3 1 # Bowel Movements 1 Result Diagram: 04/21/16 0749 04/21/16 0748 Objective Remarks GENERAL: patient sitting up in chair at bedside. Alert. SKIN: Warm and dry. HEAD: Normocephalic. EYES: No scleral icterus. No injection or drainage. NECK: Supple, trachea midline. No JVD. CARDIOVASCULAR: Regular rate and rhythm without murmurs, gallops, or rubs. RESPIRATORY: Breath sounds equal bilaterally. No accessory muscle use. GASTROINTESTINAL: Abdomen soft, non-tender, nondistended. MUSCULOSKELETAL: No cyanosis. +1 peripheral edema bilateral lower extremities. No broken skin BACK: Nontender without obvious deformity. No CVA tenderness. A/P Assessment and Plan //Hypoglycemia Plan: The patient was admitted to the medical floor. Initially treated with D5LR and oral hypoglycemics held D5LR was discontinued, patient placed on normal saline Resumed Tradjenta and Glipizide Continue to monitor Accu-Cheks and continue necessary with insulin NovoLog. 04/21 Patient blood sugar is greatly improved down from 200 to 96. This is probably to tight of a control and predisposes patient to hypoglycemia. Will decrease the dose of Glypizide to 5 mg po bid. hba1c 6.4 04/22 Blood sugars with better control. Continue same dose Glipizide and Tradjenta for now. Glipizide may be titrated up if blood sugars start to rise. // Fall Plan: Fall likely due to hypoglycemia. CT head on presentation to the hospital was negative. //UTI (urinary tract infection) -UTI likely caused the patient to have or oral intake and therefore became hypoglycemic. Patient was started on IV Rocephin, continue 04/22 Urine culture shows Enterococcus faecalis - Will switch antibiotic to IV Ciprofloxacin - may be discharged on oral ciprofloxacin to complete 10 days. -04/23. Continue ciprofloxacin to complete 10 days of treatment. -Continue Cipro . //VENKAT (acute kidney injury) Plan: Continue IV fluids, continue to monitor BUN/creatinine, strict I's and O' s. Avoid nephrotoxic agents. 04/22 Check renal us. Patient refusing labs, however patient has good urine output and intake. Continue to monitor BMP. -04/23. Patient refused renal ultrasound and labs. We'll follow-up labs tomorrow. //Encephalopathy -Encephalopathy likely metabolic secondary to hypoglycemia and possibly related to urinary tract infection. -Improved. Patient coherent Continue monitor //HTN (hypertension) Plan: Blood pressure stable. Continue amlodipine //Hyperlipidemia. Chronic -Continue statin. Check lipid profile. //Hyperkalemia. On 04/21. -04/23 Patient refused further labs today. We'll order Kayexalate, which patient took //Urinary incontinence Plan: Patient being treated with oxybutynin and Flomax. If oxybutynin is not ineffective the patient then will likely need outpatient urology follow-up. Discharge Planning possible discharge tomorrow pending labs. -We'll need 10 day course of ciprofloxacin Ulises Freeman MD Apr 24, 2016 07:23
[2016-04-24 07:57] VITALS: BP 140/71; PULSE 58; RESP 18; TEMP 96.2; O2SAT 92
[2016-04-24] MEDS: SODIUM CHLORIDE 0.9% FLUSH 5 ML FLUSH FLUSH SCH (09:00)
[2016-04-24] MEDS: glipiZIDE 5 MG TAB PO SCH (09:28)
[2016-04-24] MEDS: amLODIPine BESYLATE 5 MG TAB PO SCH (09:28)
[2016-04-24] MEDS: DOCUSATE SODIUM 100 MG CAP PO SCH (09:28)
[2016-04-24] MEDS: OXYBUTYNIN CHLORIDE 5 MG TAB PO SCH (09:31)
[2016-04-24 12:33] VITALS: BP 119/57; PULSE 55; RESP 18; TEMP 96.1; O2SAT 96
[2016-04-24 13:20] LABS: AUTOMATED NEUTROPHIL # 2.3 TH/MM3 (1.8-7.7); BASOPHIL % 0.7 % (0.0-2.0); EOSINOPHIL # 0.3 TH/MM3 (0-0.4); EOSINOPHIL % 4.9 % (0.0-4.0); HEMATOCRIT 33.9 % (39.0-51.0); HEMO FLAGS DIFF FINAL; LYMPH % 37.8 % (9.0-44.0); MEAN CELL VOLUME 95.1 FL (80.0-100.0); MEAN CORPUSCULAR HEMOGLOBIN 31.3 PG (27.0-34.0); MEAN CORPUSCULAR HGB CONC 32.9 % (32.0-36.0); MONO % 12.2 % (0.0-8.0); NEUT % 44.4 % (16.0-70.0); PLATELET COUNT 166 TH/MM3 (150-450); RED BLOOD COUNT 3.57 MIL/MM3 (4.50-5.90); RED CELL DISTRIBUTION WIDTH 15.3 % (11.6-17.2); WHITE BLOOD COUNT 5.2 TH/MM3 (4.0-11.0)
[2016-04-24 13:30] LABS: BICARBONATE 25.5 MEQ/L (21.0-32.0); MAGNESIUM 1.8 MG/DL (1.5-2.5); POTASSIUM 4.8 MEQ/L (3.5-5.1)
--- NOTE | 2016-04-24 13:52 | HHI.PR ---
Subjective Remarks Date of service 04/24/16. Patient seen this morning. Says he feels well. Denies any chest pain or shortness of breath. Initially refused to have labs drawn. Subsequently agreed when his social work assistant asked him to. Objective Vital Signs Date Time Temp Pulse Resp B/P Pulse Ox O2 Delivery O2 Flow Rate FiO2 04/24/16 12:33 96.1 55 18 119/57 96 04/24/16 07:57 96.2 58 18 140/71 92 04/24/16 04:00 98.8 80 20 132/82 93 04/24/16 00:00 98.7 78 22 130/70 94 04/23/16 20:00 98.9 78 30 142/90 93 04/23/16 16:48 97.4 64 22 144/66 93 I/O 04/23/16 04/23/16 04/23/16 04/24/16 04/24/16 04/24/16 07:00 15:00 23:00 07:00 15:00 23:00 Intake Total 200 ml 480 ml 634 ml Output Total 900 ml 750 ml 900 ml Balance -700 ml 480 ml -750 ml -266 ml Intake Oral 480 ml IV Total 200 ml 634 ml Output Urine Total 900 ml 750 ml 900 ml # Voids 5 3 1 # Bowel Movements 1 Result Diagram: 04/24/16 1300 04/24/16 1300 Objective Remarks GENERAL: patient sitting up in chair at bedside. Alert. SKIN: Warm and dry. HEAD: Normocephalic. EYES: No scleral icterus. No injection or drainage. NECK: Supple, trachea midline. No JVD. CARDIOVASCULAR: Regular rate and rhythm without murmurs, gallops, or rubs. RESPIRATORY: Breath sounds equal bilaterally. No accessory muscle use. GASTROINTESTINAL: Abdomen soft, non-tender, nondistended. MUSCULOSKELETAL: No cyanosis. +1 peripheral edema bilateral lower extremities. No change. No broken skin BACK: Nontender without obvious deformity. No CVA tenderness. A/P Assessment and Plan //Hypoglycemia -The patient was admitted to the medical floor. -Initially treated with D5LR and oral hypoglycemics held D5LR was discontinued, patient placed on normal saline Resumed Tradjenta and Glipizide Continue to monitor Accu-Cheks and continue necessary with insulin NovoLog. 04/21 Patient blood sugar is greatly improved down from 200 to 96. This is probably to tight of a control and predisposes patient to hypoglycemia. Will decrease the dose of Glypizide to 5 mg po bid. hba1c 6.4 04/22 Blood sugars with better control. Continue same dose Glipizide and Tradjenta for now. Glipizide may be titrated up if blood sugars start to rise. // Fall Plan: Fall likely due to hypoglycemia. CT head on presentation to the hospital was negative. //UTI (urinary tract infection) -UTI likely caused the patient to have or oral intake and therefore became hypoglycemic. Patient was started on IV Rocephin, continue 04/22 Urine culture shows Enterococcus faecalis - Will switch antibiotic to IV Ciprofloxacin - may be discharged on oral ciprofloxacin to complete 10 days. -04/23. Continue ciprofloxacin to complete 10 days of treatment. -Continue Cipro . //VENKAT (acute kidney injury) Plan: Continue IV fluids, continue to monitor BUN/creatinine, strict I's and O' s. Avoid nephrotoxic agents. 04/22 Check renal us. Patient refusing labs, however patient has good urine output and intake. Continue to monitor BMP. -04/23. Patient refused renal ultrasound and labs. We'll follow-up labs tomorrow. -04/24. Patient finally accepting labs. Hyperkalemia resolved. Kidney function much improved. Discharge to SNF. //Encephalopathy -Encephalopathy likely metabolic secondary to hypoglycemia and possibly related to urinary tract infection. -Improved. Patient coherent Appears to have resolved. //HTN (hypertension) Blood pressure stable. Continue amlodipine. //Hyperlipidemia. Chronic -Continue statin. -Lipid Profile can be checked as outpatient. //Hyperkalemia. On 04/21. -04/23 Patient refused further labs today. We'll order Kayexalate, which patient took -04/24. Hyperkalemia resolved. Patient initially refused labs this morning, however subsequently agreed. //Urinary incontinence -Patient being treated with oxybutynin and Flomax. If oxybutynin is not ineffective the patient then will likely need outpatient urology follow-up. Discharge Planning Discharge today to SNF. -Will need 10 day course of ciprofloxacin Ulises Freeman MD Apr 24, 2016 13:52
[2016-04-24] MEDS ORDERED: FURO1TAB60 PO (14:02)
[2016-04-24] MEDS ORDERED: GLIP5 PO (14:02)
[2016-04-24] MEDS ORDERED: CIPR-9 PO (14:02)
[2016-04-24] MEDS ORDERED: LISI2.5T3 PO (14:02)
--- NOTE | 2016-04-24 14:10 | HHI.DS ---
Discharge Summary Admission Date Apr 19, 2016 at 11:48 Discharge Date: Apr 24, 2016 Admitting Diagnosis uti, hypoglycemia, fall, acute renal failure (1) Hypoglycemia ICD Code: E16.2 (2) Fall ICD Code: W19.XXXA (3) UTI (urinary tract infection) ICD Code: N39.0 (4) VENKAT (acute kidney injury) ICD Code: N17.9 (5) Encephalopathy ICD Code: G93.40 (6) HTN (hypertension) ICD Code: I10 (7) Hyperlipidemia ICD Code: E78.5 (8) Urinary incontinence ICD Code: R32 (9) Hyperkalemia ICD Code: E87.5 Procedures No invasive procedures performed. Brief History - From Admission The patient is a 70 [place] male who presents to [facility] by ambulance after as per medical records he had a fall where he was found on the ground. The patient in the morning of the interview is very confused and states that he will did not ea a very poor historian, however as per ED physician's record the patient had an episode of low sugar fall yesterday but he did not come to the hospital. Today he had another episode for which he had to come in. Apparently he had an Accu-Chek that was 38 and he was given 250 of the 10 then he says Accu-Chek was 137. The patient otherwise denies any chest pain, shortness of breath, fevers, chills, patient mumbles and talks very rapidly and only states that he was not eating well. Patient also denies any headache, double vision or blurred vision. Patient also denies diarrhea or abdominal pain when asked. CBC/BMP: 04/24/16 1300 04/24/16 1300 Significant Findings Laboratory Tests Test 04/24/16 13:00 Red Blood Count 3.57 MIL/MM3 (4.50-5.90) Hemoglobin 11.1 GM/DL (13.0-17.0) Hematocrit 33.9 % (39.0-51.0) Monocytes (%) (Auto) 12.2 % (0.0-8.0) Eosinophils (%) (Auto) 4.9 % (0.0-4.0) Blood Urea Nitrogen 32 MG/DL (7-18) Creatinine 1.36 MG/DL (0.60-1.30) Estimat Glomerular Filtration 63 ML/MIN (>89) Rate Random Glucose 128 MG/DL (74-106) Imaging Last Impressions Pelvis X-Ray 04/19/16923 Signed Impressions: Service Date/Time: Tuesday, April 19, 2016 09:50 - CONCLUSION: Intact pelvis Porfirio Sharpe MD Head CT 04/19/16923 Signed Impressions: Service Date/Time: Tuesday, April 19, 2016 10:20 - CONCLUSION: Negative examination Porfirio Sharpe MD Chest X-Ray 04/19/16923 Signed Impressions: Service Date/Time: Tuesday, April 19, 2016 09:45 - CONCLUSION: No acute disease. Porfirio Sharpe MD PE at Discharge GENERAL: This is a well-nourished, well-developed patient, in no respiratory distress. SKIN: No rashes, ecchymoses or lesions. Cool and dry. HEAD: Atraumatic. Normocephalic. No temporal or scalp tenderness. EYES: Pupils equal round and reactive. Extraocular motions intact. No scleral icterus. No injection or drainage. ENT: Nose without bleeding, purulent drainage or septal hematoma. Throat without erythema, tonsillar hypertrophy or exudate. Uvula midline. Airway patent. NECK: Trachea midline. No JVD or lymphadenopathy. Supple, nontender, no meningeal signs. CARDIOVASCULAR: Regular rate and rhythm without murmurs, gallops, or rubs. RESPIRATORY: Clear to auscultation. Breath sounds equal bilaterally. No wheezes , rales, or rhonchi. GASTROINTESTINAL: Abdomen soft, non-tender, nondistended. No hepato-splenomegaly , or palpable masses. No guarding. Abdomen is obese MUSCULOSKELETAL: Extremities without clubbing, cyanosis, or edema. No joint tenderness, effusion, or edema noted. No calf tenderness. Negative Homans sign bilaterally. NEUROLOGICAL: Awake and alert. Cranial nerves II through XII intact. Motor and sensory grossly within normal limits. Five out of 5 muscle strength in all muscle groups. normal speech Hospital Course Diabetes medications were adjusted for safer glucose control. A1c 6.4, showing over control. Blood pressure medications were decreased for safer blood pressure control to avoid hypotension. Patient was found to have a UTI, secondary to Enterococcus faecalis, and will be discharged with ciprofloxacin. Patient had an acute kidney injury on admission with creatinine 1.8. Patient unfortunately refused multiple labs, however upon recheck creatinine found to be improved 1.36. For problem-based summary from most recent progress note, please see below. //Hypoglycemia -The patient was admitted to the medical floor. -Initially treated with D5LR and oral hypoglycemics held D5LR was discontinued, patient placed on normal saline Resumed Tradjenta and Glipizide Continue to monitor Accu-Cheks and continue necessary with insulin NovoLog. 04/21 Patient blood sugar is greatly improved down from 200 to 96. This is probably to tight of a control and predisposes patient to hypoglycemia. Will decrease the dose of Glypizide to 5 mg po bid. hba1c 6.4 04/22 Blood sugars with better control. Continue same dose Glipizide and Tradjenta for now. Glipizide may be titrated up if blood sugars start to rise. = Blood sugars remained stable on glipizide 5 mg twice daily, Tradjenta. // Fall Plan: Fall likely due to hypoglycemia. CT head on presentation to the hospital was negative. //UTI (urinary tract infection) -UTI likely caused the patient to have or oral intake and therefore became hypoglycemic. Patient was started on IV Rocephin, continue 04/22 Urine culture shows Enterococcus faecalis - Will switch antibiotic to IV Ciprofloxacin - may be discharged on oral ciprofloxacin to complete 10 days. -04/23. Continue ciprofloxacin to complete 10 days of treatment. -Continue Cipro . //VENKAT (acute kidney injury) Plan: Continue IV fluids, continue to monitor BUN/creatinine, strict I's and O' s. Avoid nephrotoxic agents. 04/22 Check renal us. Patient refusing labs, however patient has good urine output and intake. Continue to monitor BMP. -04/23. Patient refused renal ultrasound and labs. We'll follow-up labs tomorrow. -04/24. Patient finally accepting labs. Hyperkalemia resolved. Kidney function much improved. Discharge to SNF. //Encephalopathy -Encephalopathy likely metabolic secondary to hypoglycemia and possibly related to urinary tract infection. -Improved. Patient coherent Appears to have resolved. //HTN (hypertension) Blood pressure stable. Continue amlodipine. //Hyperlipidemia. Chronic -Continue statin. -Lipid Profile can be checked as outpatient. //Hyperkalemia. On 04/21. -04/23 Patient refused further labs today. We'll order Kayexalate, which patient took -04/24. Hyperkalemia resolved. Patient initially refused labs this morning, however subsequently agreed. //Urinary incontinence -Patient being treated with oxybutynin and Flomax. If oxybutynin is not ineffective the patient then will likely need outpatient urology follow-up. Pt Condition on Discharge: Good Discharge Disposition: Discharge to SNF Discharge Time: > 30 minutes Discharge Instructions DIET: Follow Instructions for: Heart Healthy Diet, Diabetic Diet Activities you can perform: Regular-No Restrictions Follow up Referrals: PCP Follow-up - 2-3 Days New Medications: Ciprofloxacin (Cipro) 500 Mg Tab 500 MG PO BID Infection Days 8 Ref 0 TAB Lisinopril (Lisinopril) 2.5 Mg Tab 2.5 MG PO DAILY #30 Ref 0 TAB Glipizide (Glucotrol) 5 Mg Tab 5 MG PO BID Blood Sugar Management Days 30 TAB Changed Medications: Furosemide (Lasix) 40 Mg Tab 20 MG PO DAILY edema Days 30 Ref 0 TAB (Changed from: 40 MG; Removed Quantity) Continued Medications: Amlodipine (Amlodipine) 5 Mg Tab 5 MG PO DAILY Blood Pressure Management #30 Ref 0 TAB Divalproex ER (Depakote ER) 500 Mg Srinath 1500 MG PO HS Control Seizures #60 Ref 0 TAB Docusate Sodium (Colace) 100 Mg Cap 100 MG PO BID Constipation #60 Ref 0 CAP Oxybutynin (Ditropan) 5 Mg Tab 5 MG PO BID Urinary Symptom Managemen #60 Ref 0 TAB Perphenazine (Perphenazine) 8 Mg Tab 8 MG PO HS TAB Tamsulosin (Flomax) 0.4 Mg Cap 0.4 MG PO HS Manage Prostate Problems #30 Ref 0 CAP Discontinued Medications: Glipizide ER (Glucotrol XL) 10 Mg Srinath 10 MG PO BID Blood Sugar Management #30 Ref 0 TAB Linagliptin (Tradjenta) 5 Mg Tab 5 MG PO DAILY Blood Sugar Management #30 Ref 0 TAB Lisinopril (Prinivil) 20 Mg Tab 20 MG PO DAILY Blood Pressure Management #30 Ref 0 TAB Naproxen (Naprosyn) 500 Mg Tab 500 MG PO BID #60 Ref 0 TAB Tramadol (Ultram) 50 Mg Tab 50 MG PO Q12HR PAIN Ref 0 TAB Ulises Freeman MD Apr 24, 2016 14:10
[2016-08-24] MEDS ORDERED: CLON.5 PO (08:24)
== END 2016-04-24 18:04 | DRG 637 ==
LOC: NEPE 09:17 → NEDA 11:48 → N05B 18:03
PROVIDERS: ADMIT Internal Medicine; ATTEND Internal Medicine
DX: E11.649 Type 2 diabetes mellitus with hypoglycemia without coma (principal); G93.41 Metabolic encephalopathy; N17.9 Acute kidney failure, unspecified; N39.0 Urinary tract infection, site not specified; I10 Essential (primary) hypertension; E78.5 Hyperlipidemia, unspecified; E87.5 Hyperkalemia; B95.2 Enterococcus as the cause of diseases classified elsewhere; R32 Unspecified urinary incontinence; F17.210 Nicotine dependence, cigarettes, uncomplicated; F25.9 Schizoaffective disorder, unspecified; E66.9 Obesity, unspecified; Z68.36 Body mass index [BMI] 36.0-36.9, adult; Z79.84 Long term (current) use of oral hypoglycemic drugs
CPT/HCPCS: 70450; 71010; 72170; 80048; 80053; 81001; 82948; 83036; 83735; 84100; 85025; 85610; 85730; 87086; 93005; 96365; 96375; J0696; J0744; J1630; J1644; J1815; J7030; J7070; J7121; P9612; Q0175

== ENCOUNTER 2016-08-24 07:57 | Inpatient (IN) | payer MEDICARE, OTHER ==
[2016-08-24] VITALS (19 sets, daily range): BP systolic 146–192; BP diastolic 75–93; PULSE 85–118; RESP 16–32; TEMP 97.8–100; O2SAT 93–99
[~2016-08-24] VITALS: Ht 170.2 cm; Wt 93.5 kg
[~2016-08-24 07:57] MED LIST changes: +AMLO5TAB2 PO; -AMLO5TAB22 PO; +CIPR-9 PO; +COLA100C3 PO; +FURO1TAB60 PO; +GLIP5 PO; -GLUC10TA3 PO; -HYDR-2768 PO; -INVE9TAB IM; +LISI2.5T3 PO; -LISI20 PO; -LISI40TA PO; -METF-324 PO; -NAPR-576 PO; +OXYB5TAB10 PO; -PERP4 PO; +PERP8TAB4 PO; +TAMS5CAP PO
[2016-08-24] MEDS ORDERED: SODIUM CHLOR 0.9% 1000 ML INJ 1,000 ML IV SCH (08:07)
[2016-08-24] MEDS ORDERED: VANCOMYCIN INJ 1,000 MG in SODIUM CHLOR 0.9% 250 ML INJ 250 ML IV STA (08:07)
[2016-08-24] MEDS ORDERED: PIPERACIL-TAZO 4.5 GM PREMIX 100 ML IV STA (08:07)
[2016-08-24] MEDS ORDERED: ACETAMINOPHEN 650 MG SUPP RECTAL ONE (08:15)
[2016-08-24] MEDS ORDERED: TAMS5CAP PO (08:24)
[2016-08-24] MEDS ORDERED: ALBU0.08 NEB (08:24)
[2016-08-24] MEDS ORDERED: SERO25TA PO (08:24)
[2016-08-24] MEDS ORDERED: DEPA500T3 PO (08:24)
[2016-08-24] MEDS ORDERED: PALI234P IM (08:24)
[2016-08-24] MEDS ORDERED: CLON.5 PO ×2 (08:24)
[2016-08-24] MEDS ORDERED: DOCU100C PO (08:24)
[2016-08-24] MEDS ORDERED: INSU1INJ14 SQ (08:24)
[2016-08-24 08:51] LABS: AUTOMATED NEUTROPHIL # 4.6 TH/MM3 (1.8-7.7); BASOPHIL % 0.3 % (0.0-2.0); EOSINOPHIL % 0.3 % (0.0-4.0); LYMPH % 11.3 % (9.0-44.0); LYMPHOCYTE # 0.7 TH/MM3 (1.0-4.8); MEAN CELL VOLUME 89.8 FL (80.0-100.0); MEAN CORPUSCULAR HEMOGLOBIN 28.4 PG (27.0-34.0); MEAN CORPUSCULAR HGB CONC 31.6 % (32.0-36.0); MONO % 7.5 % (0.0-8.0); NEUT % 80.6 % (16.0-70.0); PLATELET COUNT 136 TH/MM3 (150-450); RED BLOOD COUNT 4.56 MIL/MM3 (4.50-5.90); RED CELL DISTRIBUTION WIDTH 16.2 % (11.6-17.2); WHITE BLOOD COUNT 5.8 TH/MM3 (4.0-11.0)
[2016-08-24 08:54] LABS: HEMO FLAGS AUTO DIFF
[2016-08-24 08:58] LABS: PROTHROMBIN TIME - PATIENT 10.7 SEC (9.8-11.6)
[2016-08-24 09:14] LABS: ANION GAP 3 MEQ/L (5-15); AST (GOT) 10 U/L (15-37); BICARBONATE 37.3 MEQ/L (21.0-32.0); BLOOD UREA NITROGEN 37 MG/DL (7-18); CHLORIDE 97 MEQ/L (98-107); GLOMERULAR FILTRATION RATE 56 ML/MIN (>89); MAGNESIUM 2.2 MG/DL (1.5-2.5); POTASSIUM 6.3 MEQ/L (3.5-5.1); SODIUM (NA) 137 MEQ/L (136-145)
--- NOTE | 2016-08-24 09:14 | PD ---
HPI Chief Complaint: Altered Mental Status Time Seen by Provider: 08:07 Travel History International Travel<30 days: No Contact w/Intl Traveler<30days: No Traveled to known affect area: No History of Present Illness HPI Patient is a 71-year-old male who presents to emergency room from detention for evaluation change in mental status. As per EMS, patient is more lethargic than normal, reports that he is more conversive at baseline. EMS reports the patient was febrile on scene, he was also tachycardic and had a wet cough. Patient unable to provide history of present illness this time. PFSH Past Medical History Arthritis: Yes Asthma: Yes Autoimmune Disease: No Blood Disorders: No Bipolar Disorder: Yes Anxiety: Yes Depression: Yes Heart Rhythm Problems: No Cancer: No Cardiovascular Problems: Yes (HTN) High Cholesterol: No Chemotherapy: No Chest Pain: No Congestive Heart Failure: No COPD: No Cerebrovascular Accident: No Diabetes: Yes Patient Takes Glucophage: No Diminished Hearing: No Endocrine: Yes GERD: No Glaucoma: No Genitourinary: Yes (BPH) Headaches: No Hepatitis: No Hiatal Hernia: No Hypertension: Yes Immune Disorder: No Kidney Stones: No Musculoskeletal: Yes Neurologic: Yes ( PER [facility]AC HAS HX OF NERVE DEFICIT/DAMAGE) Psychiatric: Yes (SCHIZOPHRENIA, BIPOLAR) Reproductive: No Respiratory: No Migraines: No Myocardial Infarction: No Radiation Therapy: No Renal Failure: Yes Schizophrenia: Yes Seizures: Yes Sickle Cell Disease: No Sleep Apnea: No Thyroid Disease: No Ulcer: No Past Surgical History Abdominal Surgery: No AICD: No Appendectomy: No Arteriovenous Shunt: No Cardiac Surgery: No Cholecystectomy: No Ear Surgery: No Endocrine Surgery: No Eye Surgery: No Genitourinary Surgery: No Gynecologic Surgery: No Insulin Pump: No Joint Replacement: No Neurologic Surgery: No Oral Surgery: No Pacemaker: No Thoracic Surgery: Yes Other Surgery: No Social History Alcohol Use: No Tobacco Use: No (03/27 PPD) Substance Use: No Allergies-Medications (Allergen,Severity, Reaction): Coded Allergies: No Known Allergies (Verified , 08/24/16) UNABLE TO CONFIRM ALLERGIES AT THIS TIME Reported Meds & Prescriptions Reported Meds & Active Scripts Active Lisinopril 2.5 Mg Tab 2.5 Mg PO DAILY Glucotrol (Glipizide) 5 Mg Tab 5 Mg PO BID 30 Days Reported Albuterol Neb (Albuterol Sulfate) 2.5 Mg/3 Ml Neb 2.5 Mg NEB TID NEB PRN Invega Sustenna Inj (Paliperidone Palmitate) 234 Mg/1.5 Ml Inj 234 Mg IM Q28D Seroquel (Quetiapine Fumarate) 25 Mg Tab 25 Mg PO BID Docusate Sodium 100 Mg Cap 100 Mg PO BID Tresiba Flextouch Pen Inj (Insulin Degludec Inj) 300 unit/3 ML Pen 1 Units SQ TID Klonopin (Clonazepam) 0.5 Mg Tab 0.5 Mg PO BID Flomax (Tamsulosin HCl) 0.4 Mg Cap 0.4 Mg PO HS Ditropan (Oxybutynin Chloride) 5 Mg Tab 5 Mg PO BID Depakote ER (Divalproex Sodium) 500 Mg Srinath 1,500 Mg PO HS Amlodipine (Amlodipine Besylate) 5 Mg Tab 5 Mg PO DAILY Review of Systems ROS Limitations: Altered Mental Status Respiratory: Positive: Cough Physical Exam Narrative GENERAL: Moderate distress SKIN: Focused skin assessment warm/dry. HEAD: Atraumatic. Normocephalic. EYES: Pupils equal and round. No scleral icterus. No injection or drainage. ENT: No nasal bleeding or discharge. Mucous membranes pink and moist. NECK: Trachea midline. No JVD. CARDIOVASCULAR: Regular rate and rhythm. No murmur appreciated. RESPIRATORY: No accessory muscle use. Patient had rales to lungs bilaterally GASTROINTESTINAL: Abdomen soft, non-tender, nondistended. Hepatic and splenic margins not palpable. MUSCULOSKELETAL: No obvious deformities. No clubbing. No cyanosis. No edema. NEUROLOGICAL: Awake and alert. PSYCHIATRIC: Patient demented with altered mental status Data Data Last Documented VS Vital Signs Date Time Temp Pulse Resp B/P Pulse Ox O2 Delivery O2 Flow Rate FiO2 08/24/16 09:53 99.0 99 24 162/77 94 Nasal Cannula 6 Orders Electrocardiogram (08/24/16 08:07) Complete Blood Count With Diff (08/24/16 08:07) Comprehensive Metabolic Panel (08/24/16 08:07) Prothrombin Time / Inr (Pt) (08/24/16 08:07) Act Partial Throm Time (Ptt) (08/24/16 08:07) Lactic Acid Sepsis Protocol (08/24/16 08:07) Magnesium (Mg) (08/24/16 08:07) Lipase (08/24/16 08:07) Ckmb (Isoenzyme) Profile (08/24/16 08:07) Troponin I (08/24/16 08:07) Urinalysis - C+S If Indicated (08/24/16 08:07) Blood Culture (08/24/16 08:07) Chest, Single Ap (08/24/16 08:07) Vancomycin Inj (Vancomycin Inj) (08/24/16 08:07) Piperacil-Tazo 4.5 Gm Premix (Zosyn 4.5 (08/24/16 08:07) Valproic Acid (Depakene) (08/24/16 08:07) Sodium Chlor 0.9% 1000 Ml Inj (Ns 1000 M (08/24/16 08:07) B-Type Natriuretic Peptide (08/24/16 08:07) Acetaminophen Supp (Tylenol Supp) (08/24/16 08:15) Cath For Specimen (08/24/16 09:08) Calcium Gluconate Inj (Calcium Gluconate (08/24/16 10:00) Insulin Human Regular Inj (Novolin R Inj (08/24/16 10:00) Dextrose 50% In Eladia (Vial) Inj (D50w (Vi (08/24/16 10:00) Sodium Bicarbonate 8.4% Inj (Sodium Bica (08/24/16 10:00) Urine Culture (08/24/16 09:12) Admit Order (Ed Use Only) (08/24/16 10:47) Labs Laboratory Tests Test 08/24/16 08/24/16 08:20 09:12 White Blood Count 5.8 TH/MM3 Red Blood Count 4.56 MIL/MM3 Hemoglobin 12.9 GM/DL Hematocrit 41.0 % Mean Corpuscular Volume 89.8 FL Mean Corpuscular Hemoglobin 28.4 PG Mean Corpuscular Hemoglobin 31.6 % Concent Red Cell Distribution Width 16.2 % Platelet Count 136 TH/MM3 Mean Platelet Volume 9.6 FL Neutrophils (%) (Auto) 80.6 % Lymphocytes (%) (Auto) 11.3 % Monocytes (%) (Auto) 7.5 % Eosinophils (%) (Auto) 0.3 % Basophils (%) (Auto) 0.3 % Neutrophils # (Auto) 4.6 TH/MM3 Lymphocytes # (Auto) 0.7 TH/MM3 Monocytes # (Auto) 0.4 TH/MM3 Eosinophils # (Auto) 0.0 TH/MM3 Basophils # (Auto) 0.0 TH/MM3 CBC Comment AUTO DIFF Differential Comment AUTO DIFF CONFIRMED Platelet Estimate LOW Platelet Morphology Comment NORMAL Prothrombin Time 10.7 SEC Prothromb Time International 1.0 RATIO Ratio Activated Partial 19.0 SEC Thromboplast Time Sodium Level 137 MEQ/L Potassium Level 6.3 MEQ/L Chloride Level 97 MEQ/L Carbon Dioxide Level 37.3 MEQ/L Anion Gap 3 MEQ/L Blood Urea Nitrogen 37 MG/DL Creatinine 1.50 MG/DL Estimat Glomerular Filtration 56 ML/MIN Rate Random Glucose 213 MG/DL Lactic Acid Level 1.5 mmol/L Calcium Level 9.2 MG/DL Magnesium Level 2.2 MG/DL Total Bilirubin 0.2 MG/DL Aspartate Amino Transf 10 U/L (AST/SGOT) Alanine Aminotransferase 14 U/L (ALT/SGPT) Alkaline Phosphatase 71 U/L Total Creatine Kinase 66 U/L Troponin I LESS THAN 0.02 NG/ML B-Type Natriuretic Peptide 34 PG/ML Total Protein 7.9 GM/DL Albumin 2.8 GM/DL Lipase 112 U/L Valproic Acid (Depakene) Level 66 MCG/ML Urine Color YELLOW Urine Turbidity CLEAR Urine pH 5.0 Urine Specific Sully 1.014 Urine Protein NEG mg/dL Urine Glucose (UA) NEG mg/dL Urine Ketones 10 mg/dL Urine Occult Blood NEG Urine Nitrite NEG Urine Bilirubin NEG Urine Urobilinogen LESS THAN 2.0 MG/DL Urine Leukocyte Esterase LARGE Urine RBC LESS THAN 1 /hpf Urine WBC 8 /hpf Urine Squamous Epithelial <1 /hpf Cells Urine Bacteria OCC /hpf Urine Hyaline Casts 1 /lpf Urine Mucus FEW /lpf Microscopic Urinalysis Comment CATH-CULTURE IND MDM Medical Decision Making Medical Screen Exam Complete: Yes Emergency Medical Condition: Yes Interpretation(s) EKG at 0819: Sinus tachycardia at 100 bpm, QT/QTc 339/396 Vital Signs Date Time Temp Pulse Resp B/P Pulse Ox O2 Delivery O2 Flow Rate FiO2 08/24/16 08:38 99.7 93 16 162/77 93 Nasal Cannula 6 08/24/16 08:37 100.0 08/24/16 08:03 105 18 150/78 97 Differential Diagnosis Pneumonia, CHF exacerbation, UTI, electrolyte abnormality, ACS, arrhythmia, encephalopathy Narrative Course 71-year-old male who presents to emergency room with complaints of change in mental status. Patient presents to emergency room from a detention, reports that he appears more lethargic today. Patient is unable to provide history of present illness this time. he was febrile and tachycardic, patient does have SIRS criteria. Lab work as well as lactic acid ordered. Patient was preemptively ordered Zosyn and Vanco for his SIRS criteria. Patient was placed on parlor maid. Laboratory Tests Test 08/24/16 08/24/16 08:20 09:12 White Blood Count 5.8 TH/MM3 (4.0-11.0) Red Blood Count 4.56 MIL/MM3 (4.50-5.90) Hemoglobin 12.9 GM/DL (13.0-17.0) Hematocrit 41.0 % (39.0-51.0) Mean Corpuscular Volume 89.8 FL (80.0-100.0) Mean Corpuscular Hemoglobin 28.4 PG (27.0-34.0) Mean Corpuscular Hemoglobin 31.6 % Concent (32.0-36.0) Red Cell Distribution Width 16.2 % (11.6-17.2) Platelet Count 136 TH/MM3 (150-450) Mean Platelet Volume 9.6 FL (7.0-11.0) Neutrophils (%) (Auto) 80.6 % (16.0-70.0) Lymphocytes (%) (Auto) 11.3 % (9.0-44.0) Monocytes (%) (Auto) 7.5 % (0.0-8.0) Eosinophils (%) (Auto) 0.3 % (0.0-4.0) Basophils (%) (Auto) 0.3 % (0.0-2.0) Neutrophils # (Auto) 4.6 TH/MM3 (1.8-7.7) Lymphocytes # (Auto) 0.7 TH/MM3 (1.0-4.8) Monocytes # (Auto) 0.4 TH/MM3 (0-0.9) Eosinophils # (Auto) 0.0 TH/MM3 (0-0.4) Basophils # (Auto) 0.0 TH/MM3 (0-0.2) CBC Comment AUTO DIFF Differential Comment AUTO DIFF CONFIRMED Platelet Estimate LOW (NORMAL) Platelet Morphology Comment NORMAL (NORMAL) Prothrombin Time 10.7 SEC (9.8-11.6) Prothromb Time International 1.0 RATIO Ratio Activated Partial 19.0 SEC Thromboplast Time (24.3-30.1) Sodium Level 137 MEQ/L (136-145) Potassium Level 6.3 MEQ/L (3.5-5.1) Chloride Level 97 MEQ/L (98-107) Carbon Dioxide Level 37.3 MEQ/L (21.0-32.0) Anion Gap 3 MEQ/L (5-15) Blood Urea Nitrogen 37 MG/DL (7-18) Creatinine 1.50 MG/DL (0.60-1.30) Estimat Glomerular Filtration 56 ML/MIN (>89) Rate Random Glucose 213 MG/DL (74-106) Lactic Acid Level 1.5 mmol/L (0.4-2.0) Calcium Level 9.2 MG/DL (8.5-10.1) Magnesium Level 2.2 MG/DL (1.5-2.5) Total Bilirubin 0.2 MG/DL (0.2-1.0) Aspartate Amino Transf 10 U/L (15-37) (AST/SGOT) Alanine Aminotransferase 14 U/L (12-78) (ALT/SGPT) Alkaline Phosphatase 71 U/L (45-117) Total Creatine Kinase 66 U/L (39-308) Troponin I LESS THAN 0.02 NG/ML (0.02-0.05) B-Type Natriuretic Peptide 34 PG/ML (0-100) Total Protein 7.9 GM/DL (6.4-8.2) Albumin 2.8 GM/DL (3.4-5.0) Lipase 112 U/L (73-393) Valproic Acid (Depakene) Level 66 MCG/ML (50-100) Urine Color YELLOW (YELLW/STRAW) Urine Turbidity CLEAR (CLEAR) Urine pH 5.0 (5.0-8.5) Urine Specific Sully 1.014 (1.002-1.035) Urine Protein NEG mg/dL (NEG-TRACE) Urine Glucose (UA) NEG mg/dL (NEG) Urine Ketones 10 mg/dL (NEG) Urine Occult Blood NEG (NEG) Urine Nitrite NEG (NEG) Urine Bilirubin NEG (NEG) Urine Urobilinogen LESS THAN 2.0 MG/DL (LESS THAN 2.0) Urine Leukocyte Esterase LARGE (NEG) Urine RBC LESS THAN 1 /hpf (0-3) Urine WBC 8 /hpf (0-5) Urine Squamous Epithelial <1 /hpf (0-5) Cells Urine Bacteria OCC /hpf (NONE) Urine Hyaline Casts 1 /lpf (RARE) Urine Mucus FEW /lpf (OCC) Microscopic Urinalysis Comment CATH-CULTURE IND Last Impressions Chest X-Ray 08/24/16 0807 Signed Impressions: Service Date/Time: August 08:31 - CONCLUSION: Underinflated examination with bibasilar opacity. On the left the appearance favors atelectasis. At the right base it could represent atelectasis or consolidation. Good inspiratory formal PA and lateral views of the chest may help differentiate. Sanjay Goyal MD Labs reviewed: WBC 5.8, hemoglobin 12.9, hematocrit 41.0, platelets 136 Sodium 137, potassium 6.3, BUN 37, creatinine 1.50 which is his baseline, glucose 213, lactic acid 1.5, troponin less than 0.02 Patient's urine shows occasional bacteria, esterase, ketones Patient with SIRS criteria upon her presentation to the emergency room with his tachycardia as well as his fever. Source of infection is most likely from urine. Patient does have a chest x-ray concerning for atelectasis versus consolidation. Because patient had SIRS criteria upon arrival to the emergency room, patient was given Zosyn and vancomycin and has been pancultured. Plan to admit to medicine service - [facility] as his pcp is Dr. Marco Harrell Case reviewed with DR. Sanchez who accepts pt to service Diagnosis Primary Impression: SIRS (systemic inflammatory response syndrome) Additional Impressions: UTI (urinary tract infection) Hyperkalemia Admitting Information Admitting Physician Requests: Admit Yaima Spring DO Aug 24, 2016 09:14
[2016-08-24 09:16] LABS: ALKALINE PHOSPHATASE 71 U/L (45-117); ALT (GPT) 14 U/L (12-78); TOTAL BILIRUBIN ADULT 0.2 MG/DL (0.2-1.0)
[2016-08-24 09:17] LABS: CREATINE KINASE 66 U/L (39-308)
--- NOTE | 2016-08-24 09:29 | RADRPT ---
EXAM DATE/TIME: 08/24/2016 08:31 [facility] COMPARISON: CHEST SINGLE AP, April 19, 2016, 9:45. INDICATIONS : Cough MEDICAL HISTORY : None. SURGICAL HISTORY : None. ENCOUNTER: Initial ACUITY: 1 day PAIN SCORE: Non-responsive. LOCATION: Bilateral chest FINDINGS: Portable AP view of the chest demonstrates a normal-sized cardiac silhouette. Lungs are underinflated . There are mild bibasilar opacities. On the left it has a somewhat linear appearance. No pneumothora x is visualized. Bones and soft tissues demonstrate no acute finding. CONCLUSION: Underinflated examination with bibasilar opacity. On the left the appearance favors atelectasis. At t he right base it could represent atelectasis or consolidation. Good inspiratory formal PA and lateral views of the chest may help differentiate. Sanjay Goyal MD on August 24, 2016 at 9:26 Board Certified Radiologist. This report was verified electronically.
[2016-08-24 09:30] LABS: PLATELET ESTIMATE SMEAR LOW (NORMAL); PLATELET MORPHOLOGY NORMAL (NORMAL)
[2016-08-24 09:31] LABS: SCAN/DIFF AUTO DIFF CONFIRMED
[2016-08-24 09:46] LABS: BACTERIA, URINE OCC /hpf; BLOOD, URINE NEG (NEG); COMMENT (UR) CATH-CULTURE IND; CULTURE IF INDICATED CATH CULTURE IND; GLUCOSE,URINE NEG (NEG); HYALINE CAST, URINE 1 /lpf (RARE); KETONE, URINE 10 mg/dL (NEG); MUCUS URINE FEW /lpf (OCC); NITRITE,URINE NEG (NEG); SQUAMOUS EPITHELIAL CELL URINE <1 /hpf (0-5); URINE COLOR YELLOW (YELLW/STRAW)
[2016-08-24] MEDS ORDERED: INSULIN HUMAN REGULAR 1,000 UNITS/10 ML VIAL IV PUSH ONE (10:00)
[2016-08-24] MEDS ORDERED: CALCIUM GLUCONATE 10% 1 GM/10 ML VIAL SLOW IVP ONE (10:00)
[2016-08-24] MEDS ORDERED: DEXTROSE 50% IN WATER 50 ML VIAL(D50) IV PUSH ONE (10:00)
[2016-08-24] MEDS ORDERED: SODIUM BICARBONATE 8.4% SOLN 50 MEQ/50 ML VIAL SLOW IVP ONE (10:00)
--- NOTE | 2016-08-24 11:17 | EKG ---
Date Performed: 08/24/2016 Time Performed: 08:19:47 PTAGE: 71 years EKG: SINUS TACHYCARDIA RIGHT BUNDLE BRANCH BLOCK LEFT ANTERIOR FASCICULAR BLOCK ABNORMAL ECG PREVIOUS TRACING : 04/19/2016 10.13 Compared to the previous tracing, rate has increased DOCTOR: Maico Parker Interpretating Date/Time 08/24/2016 11:17:12
[2016-08-24] MEDS ORDERED: NALOXONE HCL 0.4 MG/ML AMP IV PRN (11:45)
[2016-08-24] MEDS ORDERED: SODIUM CHLORIDE 0.9% FLUSH 10 ML FLUSH IV FLUSH PRN (11:45)
[2016-08-24] MEDS: SODIUM CHLOR 0.9% 1000 ML INJ 1,000 ML IV SCH ×2 (11:46→12:39)
[2016-08-24] MEDS ORDERED: SODIUM POLYSTYRENE SULFONATE 30 GM/120 ML ENEMA RECTAL ONE (12:00)
[2016-08-24] MEDS ORDERED: ACETAMINOPHEN 325 MG TAB PO PRN (12:00)
[2016-08-24] MEDS ORDERED: MAGNESIUM HYDROXIDE SUSP 30 ML CUP PO PRN (12:00)
[2016-08-24] MEDS ORDERED: ONDANSETRON HCL 4 MG/2 ML VIAL IVP PRN (12:00)
[2016-08-24] MEDS ORDERED: SENNOSIDES 8.6 MG TAB PO PRN (12:00)
[2016-08-24] MEDS: cefTRIAXone INJ 1,000 MG in SODIUM CHLORIDE 0.9% INJ 100 ML IV SCH (12:38)
[2016-08-24] MEDS: AZITHROMYCIN INJ 500 MG in SODIUM CHLOR 0.9% 250 ML INJ 250 ML IV SCH (14:56)
[2016-08-24] MEDS: RESP: ALBUTEROL 2.5 MG/IPRATROPIUM 0.5 MG NEB (SCH) NEB ×2 (16:17→21:09)
--- NOTE | 2016-08-24 16:48 | MH ---
cc: BEKAH JENSEN MD DATE OF ADMISSION 08/24/2016 DATE OF [address] Jensen CHIEF COMPLAINT Increased altered mental status. Travel in the last 30 days, none. HISTORY OF PRESENT ILLNESS This is a 71-year-old black male who was brought in for evaluation of increased lethargy and altered mental status. The patient is currently in the long-term setting and was noted to have some tachycardia rhythm. A coarse, wet cough as well as some increase in his altered mental status. He has waxed and waned with some lethargy and is now having some issues with agitation. He will randomly talk which included asking for food and stating that he is hungry, accompanied with dozing off to sleep very easily. The patient does have a significant history of schizophrenia and bipolar disorder. He is a poor historian. Most of the information will be gathered from the record. PAST MEDICAL HISTORY Medical history does include: 1. Arthritis. 2. Asthma. 3. Bipolar disorder. 4. Schizophrenia. 5. Anxiety disorder. 6. Depression. 7. Hypertension. 8. Diabetes. 9. Benign prostatic hypertrophy. 10. Neurological history of nerve deficit and damage. 11. Renal failure. 12. Seizure disorder. PAST SURGICAL HISTORY Thoracic surgery. ALLERGIES NONE KNOWN. MEDICATIONS Active and reported: 1. Lisinopril. 2. Glucotrol. 3. Albuterol. 4. Invega. 5. Seroquel. 6. Stool softeners. 7. Tresiba FlexTouch insulin pen. 8. Klonopin. 9. Flomax. 10. Diprivan. 11. Ditropan. 12. Depakote. 13. Amlodipine. SOCIAL HISTORY According to the record the patient was a smoker, at least half pack a day. He does state at this point he is not smoking anymore. Unknown history of alcohol or illicit drug use. REVIEW OF SYSTEMS Unable to assess secondary to his altered mental status. He does state that he is hungry. He does have a coarse cough and altered mental status. PHYSICAL EXAMINATION VITAL SIGNS: Temperature initially was 100 rectally, now 99 oral. Pulse is 93-99. Respiratory rate 16-24. Blood pressure initially in the ER 162/77 now 146/88. O2 saturation 94% currently on 6 liters nasal cannula. GENERAL: This is an obese, black male looks to be his stated age. He is resting in the bed. He is awake, altering with some drowsiness. SKIN: Alan with pink mucous membranes. His lower extremity skin is tough to touch. HEENT: Atraumatic, normocephalic. Pupils equal, round, reactive to light and accommodation. Mucous membranes are pink. Oral cavity very moist with some increased saliva and secretions in his mouth. NECK: Thick, supple. HEART: Sounds S1-S2. Rhythm appears to be regular. He has no peripheral edema. Pulses are intact. LUNGS: He has low air volumes. He does have some coarse rhonchi. And some decreased breath sounds in his bases, especially on his left side. No active wheezing. ABDOMEN: Large, round, soft. Nontender. Nondistended. Bowel sounds are present. MUSCULOSKELETAL: He randomly moves his extremities with purpose. But is unable to follow general commands for now. PSYCHIATRIC: Mood is labile which includes some lethargy associated with some agitation. SKIN: Alfred mucous membranes. Warm and dry. LABORATORY DATA Diagnostic data, WBC count 5.8, RBC 4.56, hemoglobin 12.9, hematocrit 41, platelet count 136. Neutrophil protocol auto count 80.6. Platelet estimate is low. Chemistry, sodium 137, potassium 6.3, chloride 97, carbon dioxide 37.3. Anion gap 3, BUN 37, creatinine 1.5. GFR is 56. Random glucose 213. Lactic acid is 1.5. Troponin is less than 0.02 times two different lab draws. AST is 10, ALT is 14. Alkaline phosphatase 71. BNP is 34. Albumin is 2.8. Toxicology screen, valproic acid is 66. PT INR is 1.0. Urine shows yellow, clear urine. PH is 5.0, specific gravity 1.014, 10 of ketones. Negative for protein, glucose, occult blood, nitrites, bilirubin. Large amount of leukocyte esterase. IMAGING Chest x-ray shows under inflated exam with bibasilar opacities. Left favors more atelectasis than the right. At the right base it could be atelectasis or consolidation. ASSESSMENT AND PLAN 1. Urinary tract infection. 2. Increased altered mental status / possible secondary to number one / encephalopathy. 3. History of bipolar disease and schizophrenia. 4. Acute kidney injury. 5. Hyperkalemia. 6. Hyperglycemia. protein calorie malnutrition. 7. History of falls. 8. Hypertension. 9. Possible aspiration pneumonia. Our plan is to admit. We will admit to observation. Vital signs will be q.4h. We will reconcile his medications. Give him a heart healthy 1800 calorie ADA diet. We will follow up on his swallow evaluation to make sure that the patient is not aspirating or having some aspiration pneumonia. Deep venous thrombosis prophylaxis with heparin. IV fluids for gentle hydration. The patient was given Rocephin and azithromycin to treat any possible sepsis and urinary tract infection. The patient was given Zosyn in the emergency room and Tylenol for some fever. We will recheck the patient's labs in the morning. Follow up with swallow and whether the patient can eat. We are going to check his swallow with speech to make sure that he is not aspirating. IV antibiotics are already on board. We will consult nutrition for their expert opinion and consider adding some protein to the patient's diet when he does start eating. To my knowledge the patient is full code, full aggressive care and we will follow. Dictated by: OLIVER Ventura MD JAVON Nagel/MARIELA /3:18 PM /3:51 PM
[2016-08-24 20:57] LABS: BLOOD GAS BASE EXCESS 11.2 mmol/L (-2-2); BLOOD GAS CARBOXYHEMOGLOBIN 1.6 % (0-4); BLOOD GAS HCO3 39 mmol/L (22-26); BLOOD GAS METHEMOGLOBIN 1.2 % (0-2); BLOOD GAS O2 HGB SATURATION 96 % (90-100); BLOOD GAS OXYGEN CONTENT 16.5 Vol % (12.0-20.0); BLOOD GAS PCO2 97 mmHg (38-42); BLOOD GAS PO2 131 mmHg (61-120); BLOOD GAS TOTAL HGB 12.1 G/DL (12.0-16.0); TEMP CORR TO 98.6
[2016-08-24 20:58] LABS: CRITICAL VALUE YES; FIO2 100 %; LITER FLOW 15 L/M; OXYGEN DEVICE AMBU
[2016-08-24 20:59] LABS: DRAW SITE LT RADIAL; NUMBER OF ARTERIAL PUNCTURES 1; STAT YES; ULNAR PULSE PRESENT
[2016-08-24] MEDS: SODIUM CHLORIDE 0.9% FLUSH 10 ML FLUSH IV FLUSH SCH (21:00)
[2016-08-24] MEDS: HEPARIN SODIUM - SQ 10,000 UNITS/ML VIAL SQ SCH ×2 (21:00→23:05)
[2016-08-24] MEDS: DOCUSATE SODIUM 50 MG/SENNA 8.6 MG TAB PO SCH ×2 (21:00→23:05)
--- NOTE | 2016-08-24 21:05 | HHI.FPPN ---
Addendum to progress note ADDENDUM Reason for addendum: Additonal documentation Additional information [facility] paged regarding pt. Per nurses, pt was resting in bed and then was unresponsive to nurses. Attempted sternal rub, didn't respond. Patient had elevated BP to 180/110s and pulse of 100. Respiratory was bagging patient. Shortly after arrival, pt became aroused and began mumbling. Per nurse, this is baseline for pt. Pt has history of schizophrenia and history of seizures. Pt unable to answer questions appropriately, but was at baseline per nurse of status before unresponsive event. Vitals: 188/110, HR 100, RR 18, pulse ox 100% Gen: Alert, not oriented. NAD CV: Tachycardic, distant heart sounds Lungs: coarse breath sounds, diminished at bases Ext: pulses intact, no edema 71 y/o male with history of schizophrenia and seizures, admitted for urosepsis presents with unresponsiveness. Pt may have been suffering from seizure activity, back to baseline after responding and vitals trending down. Pt on Depakote HS at home. -Stat CBC, BMP, lactic acid, ABG -CXR -Check serum depakote level -Pt's attending made aware of pt's status and to take over further care sdw Dr. Carl Esquivel,Flo Murray MD R1 Aug 24, 2016 21:05
[2016-08-24 21:31] LABS: AUTOMATED NEUTROPHIL # 3.5 TH/MM3 (1.8-7.7); BASOPHIL % 0.2 % (0.0-2.0); HEMO FLAGS DIFF FINAL; LYMPH % 21.6 % (9.0-44.0); LYMPHOCYTE # 1.4 TH/MM3 (1.0-4.8); MEAN CELL VOLUME 90.4 FL (80.0-100.0); MEAN CORPUSCULAR HEMOGLOBIN 27.8 PG (27.0-34.0); MEAN CORPUSCULAR HGB CONC 30.8 % (32.0-36.0); MONO % 22.5 % (0.0-8.0); NEUT % 55.7 % (16.0-70.0); PLATELET COUNT 139 TH/MM3 (150-450); RED BLOOD COUNT 4.31 MIL/MM3 (4.50-5.90); RED CELL DISTRIBUTION WIDTH 16.2 % (11.6-17.2); WHITE BLOOD COUNT 6.4 TH/MM3 (4.0-11.0)
[2016-08-24] MEDS: DIVALPROEX SODIUM E.R. 500 MG TAB PO SCH (22:45)
[2016-08-24] MEDS: clonazePAM 0.5 MG TAB PO SCH ×2 (22:45→23:05)
[2016-08-24] MEDS: QUEtiapine FUMARATE 25 MG TAB PO SCH ×2 (22:45→23:05)
[2016-08-24] MEDS: TAMSULOSIN HCL 0.4 MG CAP PO SCH ×2 (22:45→23:05)
[2016-08-24] MEDS: amLODIPine BESYLATE 5 MG TAB PO SCH ×2 (22:45→23:05)
[2016-08-25] VITALS (28 sets, daily range): BP systolic 128–172; BP diastolic 65–81; PULSE 48–87; RESP 13–34; TEMP 98–99.4; O2SAT 80–100
[2016-08-25 01:06] LABS: ALKALINE PHOSPHATASE 61 U/L (45-117); ALT (GPT) 13 U/L (12-78); ANION GAP 8 MEQ/L (5-15); AST (GOT) 10 U/L (15-37); BICARBONATE 34.1 MEQ/L (21.0-32.0); BLOOD UREA NITROGEN 34 MG/DL (7-18); CHLORIDE 102 MEQ/L (98-107); GLOMERULAR FILTRATION RATE 55 ML/MIN (>89); SODIUM (NA) 144 MEQ/L (136-145); TOTAL BILIRUBIN ADULT 0.1 MG/DL (0.2-1.0)
[2016-08-25 01:27] LABS: BLOOD GAS BASE EXCESS 12.1 mmol/L (-2-2); BLOOD GAS CARBOXYHEMOGLOBIN 1.8 % (0-4); BLOOD GAS HCO3 39 mmol/L (22-26); BLOOD GAS METHEMOGLOBIN 1.6 % (0-2); BLOOD GAS O2 HGB SATURATION 88 % (90-100); BLOOD GAS OXYGEN CONTENT 15.2 Vol % (12.0-20.0); BLOOD GAS PCO2 80 mmHg (38-42); BLOOD GAS PO2 61 mmHg (61-120); BLOOD GAS TOTAL HGB 12.4 G/DL (12.0-16.0); TEMP CORR TO 98.6
[2016-08-25 01:28] LABS: CRITICAL VALUE YES; DRAW SITE RT RADIAL; FIO2 30 %; NUMBER OF ARTERIAL PUNCTURES 1; OXYGEN DEVICE BiPAP; STAT YES; ULNAR PULSE PRESENT; VENT SETTINGS 12IPAP/5EPAP
[2016-08-25] MEDS: RESP: ALBUTEROL 2.5 MG/IPRATROPIUM 0.5 MG NEB (SCH) NEB ×4 (03:33→21:50)
[2016-08-25 07:15] LABS: AUTOMATED NEUTROPHIL # 3.8 TH/MM3 (1.8-7.7); BASOPHIL % 0.3 % (0.0-2.0); EOSINOPHIL % 0.4 % (0.0-4.0); HEMO FLAGS DIFF FINAL; LYMPH % 20.4 % (9.0-44.0); LYMPHOCYTE # 1.3 TH/MM3 (1.0-4.8); MEAN CELL VOLUME 91.1 FL (80.0-100.0); MEAN CORPUSCULAR HEMOGLOBIN 27.9 PG (27.0-34.0); MEAN CORPUSCULAR HGB CONC 30.6 % (32.0-36.0); MONO % 19.1 % (0.0-8.0); NEUT % 59.8 % (16.0-70.0); PLATELET COUNT 138 TH/MM3 (150-450); RED BLOOD COUNT 4.28 MIL/MM3 (4.50-5.90); RED CELL DISTRIBUTION WIDTH 15.9 % (11.6-17.2); WHITE BLOOD COUNT 6.3 TH/MM3 (4.0-11.0)
[2016-08-25 08:02] LABS: BICARBONATE 38.9 MEQ/L (21.0-32.0); POTASSIUM 4.6 MEQ/L (3.5-5.1)
[2016-08-25] MEDS: clonazePAM 0.5 MG TAB PO SCH ×2 (08:31→20:04)
[2016-08-25] MEDS: amLODIPine BESYLATE 5 MG TAB PO SCH (08:31)
[2016-08-25] MEDS: QUEtiapine FUMARATE 25 MG TAB PO SCH ×2 (08:31→20:04)
[2016-08-25] MEDS: DOCUSATE SODIUM 50 MG/SENNA 8.6 MG TAB PO SCH ×2 (08:31→20:04)
[2016-08-25] MEDS: HEPARIN SODIUM - SQ 10,000 UNITS/ML VIAL SQ SCH ×2 (08:32→20:04)
[2016-08-25] MEDS: SODIUM CHLORIDE 0.9% FLUSH 10 ML FLUSH IV FLUSH SCH ×2 (08:56→20:05)
--- NOTE | 2016-08-25 10:51 | HHI.PR ---
Subjective Subjective Remarks alan called, pt. unresponsive ? seizure BP elevated, 180/11 required manual ventilation with ambu ABGs done, noted acidotic, now on bipap tx to ICU lethargic, attempts to open eyes on BIPAP unable to obtain ROS Review of Systems Constitutional Constitutional Remarks unable to obtain ROS Vitals/Results Intake & Output 08/24/16 08/24/16 08/25/16 15:00 23:00 07:00 Intake Total 1180 ml 755 ml Output Total 600 ml Balance 580 ml 755 ml Intake Oral 480 ml 355 ml IV Total 700 ml 400 ml Output Urine Total 600 ml # Voids 2 # Bowel Movements 1 0 Vital Signs Vital Signs Date Time Temp Pulse Resp B/P Pulse Ox O2 Delivery O2 Flow Rate FiO2 08/25/16 10:00 86 08/25/16 09:55 94 30 08/25/16 09:04 96 Nasal Cannula 3.00 08/25/16 08:00 80 08/25/16 06:00 84 08/25/16 04:13 95 30 08/25/16 04:00 98.6 75 22 147/73 95 08/25/16 04:00 75 08/25/16 03:00 85 08/25/16 02:00 79 08/25/16 01:16 94 30 08/25/16 01:00 87 08/25/16 00:05 96 30 08/25/16 00:05 96 BiPAP 30 08/25/16 00:02 99.4 84 20 128/73 94 08/25/16 00:00 82 08/24/16 23:30 97 30 08/24/16 23:20 94 2.00 08/24/16 22:30 102 192/93 97 08/24/16 22:00 96 08/24/16 20:45 95 2.00 08/24/16 20:00 97 08/24/16 19:00 97.8 92 164/91 94 08/24/16 19:00 87 08/24/16 18:03 85 08/24/16 17:05 118 08/24/16 16:38 104 08/24/16 16:17 95 Nasal Cannula 4.00 08/24/16 15:45 98.7 99 20 151/75 99 08/24/16 15:45 98 08/24/16 14:47 93 08/24/16 11:47 99 20 146/88 94 Nasal Cannula 6 CBC/BMP: 08/25/16 0652 08/25/16 0652 Lab Results Laboratory Tests Test 08/24/16 08/24/16 08/24/16 08/24/16 12:41 16:45 20:50 21:21 Troponin I LESS THAN 0.02 LESS THAN 0.02 NG/ML NG/ML Blood Gas Puncture Site LT RADIAL Blood Gas Patient Temperature 98.6 Blood Gas HCO3 39 mmol/L Blood Gas Base Excess 11.2 mmol/L Blood Gas Oxygen Saturation 96 % Arterial Blood pH 7.23 Arterial Blood Partial 97 mmHg Pressure CO2 Arterial Blood Partial 131 mmHg Pressure O2 Arterial Blood Oxygen Content 16.5 Vol % Arterial Blood 1.6 % Carboxyhemoglobin Arterial Blood Methemoglobin 1.2 % Blood Gas Hemoglobin 12.1 G/DL Oxygen Delivery Device AMBU Blood Gas Liter Flow 15 L/M Blood Gas Inspired Oxygen 100 % White Blood Count 6.4 TH/MM3 Red Blood Count 4.31 MIL/MM3 Hemoglobin 12.0 GM/DL Hematocrit 39.0 % Mean Corpuscular Volume 90.4 FL Mean Corpuscular Hemoglobin 27.8 PG Mean Corpuscular Hemoglobin 30.8 % Concent Red Cell Distribution Width 16.2 % Platelet Count 139 TH/MM3 Mean Platelet Volume 9.3 FL Neutrophils (%) (Auto) 55.7 % Lymphocytes (%) (Auto) 21.6 % Monocytes (%) (Auto) 22.5 % Eosinophils (%) (Auto) 0.0 % Basophils (%) (Auto) 0.2 % Neutrophils # (Auto) 3.5 TH/MM3 Lymphocytes # (Auto) 1.4 TH/MM3 Monocytes # (Auto) 1.4 TH/MM3 Eosinophils # (Auto) 0.0 TH/MM3 Basophils # (Auto) 0.0 TH/MM3 CBC Comment DIFF FINAL Differential Comment Lactic Acid Level 1.2 mmol/L Valproic Acid (Depakene) Level 40 MCG/ML Sodium Level 144 MEQ/L Potassium Level 5.0 MEQ/L Chloride Level 102 MEQ/L Carbon Dioxide Level 34.1 MEQ/L Anion Gap 8 MEQ/L Blood Urea Nitrogen 34 MG/DL Creatinine 1.52 MG/DL Estimat Glomerular Filtration 55 ML/MIN Rate Random Glucose 264 MG/DL Calcium Level 9.0 MG/DL Total Bilirubin 0.1 MG/DL Aspartate Amino Transf 10 U/L (AST/SGOT) Alanine Aminotransferase 13 U/L (ALT/SGPT) Alkaline Phosphatase 61 U/L Total Protein 7.2 GM/DL Albumin 2.6 GM/DL Test 08/25/16 08/25/16 08/25/16 00:30 01:15 06:52 Nasal Screen MRSA (PCR) MRSA NOT DETECTED Blood Gas Puncture Site RT RADIAL Blood Gas Patient Temperature 98.6 Blood Gas HCO3 39 mmol/L Blood Gas Base Excess 12.1 mmol/L Blood Gas Oxygen Saturation 88 % Arterial Blood pH 7.31 Arterial Blood Partial 80 mmHg Pressure CO2 Arterial Blood Partial 61 mmHg Pressure O2 Arterial Blood Oxygen Content 15.2 Vol % Arterial Blood 1.8 % Carboxyhemoglobin Arterial Blood Methemoglobin 1.6 % Blood Gas Hemoglobin 12.4 G/DL Oxygen Delivery Device BiPAP Blood Gas Ventilator Setting 12IPAP/5EPAP Blood Gas Inspired Oxygen 30 % White Blood Count 6.3 TH/MM3 Red Blood Count 4.28 MIL/MM3 Hemoglobin 11.9 GM/DL Hematocrit 39.0 % Mean Corpuscular Volume 91.1 FL Mean Corpuscular Hemoglobin 27.9 PG Mean Corpuscular Hemoglobin 30.6 % Concent Red Cell Distribution Width 15.9 % Platelet Count 138 TH/MM3 Mean Platelet Volume 9.4 FL Neutrophils (%) (Auto) 59.8 % Lymphocytes (%) (Auto) 20.4 % Monocytes (%) (Auto) 19.1 % Eosinophils (%) (Auto) 0.4 % Basophils (%) (Auto) 0.3 % Neutrophils # (Auto) 3.8 TH/MM3 Lymphocytes # (Auto) 1.3 TH/MM3 Monocytes # (Auto) 1.2 TH/MM3 Eosinophils # (Auto) 0.0 TH/MM3 Basophils # (Auto) 0.0 TH/MM3 CBC Comment DIFF FINAL Differential Comment Sodium Level 144 MEQ/L Potassium Level 4.6 MEQ/L Chloride Level 103 MEQ/L Carbon Dioxide Level 38.9 MEQ/L Anion Gap 2 MEQ/L Blood Urea Nitrogen 33 MG/DL Creatinine 1.17 MG/DL Estimat Glomerular Filtration 75 ML/MIN Rate Random Glucose 142 MG/DL Calcium Level 9.0 MG/DL Physical Exam General General Appearance: Well Developed, Well Nourished Appearance Remarks on BIPAP Eyes Eye Exam: Pupils Equal Ears & Nose Ears & Nose Exam: Nasal Mucosa [place] Throat Throat Exam: Oral Mucosa [place] & Moist Neck Neck Exam: Neck Supple, Trachea Midline Pulmonary Resp Exam: Decreased Bases Cardiology CV Exam: Regular Gastrointestinal/Abdomen GI Exam: Soft, Non-Tender, Bowel Sounds Present, Non-Distended Musculoskeletal MS Exam: Joints Intact Integumentary Skin Exam: Warm Extremeties Extremities Exam: Pedal Pulses Palpable, Trace Edema Neurologic Neuro Remarks lethargic VTE Prophylaxis VTE Prophylaxis Device: SCDs Assessment/Plan Problem List: (1) Respiratory failure (2) Hyperlipidemia (3) Encephalopathy (4) HTN (hypertension) (5) VENKAT (acute kidney injury) (6) UTI (urinary tract infection) (7) Hyperkalemia (8) SIRS (systemic inflammatory response syndrome) (9) Schizophrenia (10) Seizure disorder (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 mental status ? poss. encephalopathy, SIRS with UTI, poss. PNA continue abx, follow urine cultures CXR ? pna swallow eval. VENKAT renal function better continue IVF obtunded ? seizure, resp. failure, poss hypoventilation, ABG showed resp. acidosis. Poppyt called 08/24 continue BIPAP consult pulmonology duonebs poss seizure, has seizure disorder CT head today check EEG will order B12, TSH, RPR consult neurology Valproic acid 40 continue Depakote Heparin for DVT prophylaxis labs in am condition guarded D/W RN D/W Dr. Sanchez This patient was seen by myself and Dr. Sanchez, this note is written on her behalf. Problem Qualifiers (1) Respiratory failure: Qualified Code: J96.01 - Acute respiratory failure with hypoxia and hypercapnia (2) Hyperlipidemia: Qualified Code: E78.5 - Hyperlipidemia, unspecified hyperlipidemia type (3) HTN (hypertension): Qualified Code: I10 - Essential hypertension (4) UTI (urinary tract infection): Qualified Code: N39.0 - Urinary tract infection without hematuria, site unspecified (5) Schizophrenia: Qualified Code: F20.9 - Schizophrenia, unspecified type Ly Burton Aug 25, 2016 10:51
[2016-08-25] MEDS: INSULIN ASPART SUPPLEMENTAL SCALE SQ SCH ×4 (11:00→21:25)
[2016-08-25] MEDS ORDERED: GLUCAGON 1 MG/ML VIAL OTHER PRN (11:00)
[2016-08-25] MEDS ORDERED: DEXTROSE 50% IN WATER 50 ML VIAL(D50) IV PRN (11:00)
[2016-08-25] MEDS ORDERED: PILL SPLITTER OTHER PRN (11:15)
[2016-08-25] MEDS: AZITHROMYCIN INJ 500 MG in SODIUM CHLOR 0.9% 250 ML INJ 250 ML IV SCH (13:16)
[2016-08-25] MEDS: methylPREDNISolone SOD SUCC 40 MG/1 ML VIAL IV SCH ×2 (13:17→20:04)
[2016-08-25] MEDS: cefTRIAXone INJ 1,000 MG in SODIUM CHLORIDE 0.9% INJ 100 ML IV SCH (13:17)
[2016-08-25 13:24] LABS: BLOOD GAS BASE EXCESS 11.5 mmol/L (-2-2); BLOOD GAS CARBOXYHEMOGLOBIN 1.9 % (0-4); BLOOD GAS HCO3 38 mmol/L (22-26); BLOOD GAS METHEMOGLOBIN 1.3 % (0-2); BLOOD GAS O2 HGB SATURATION 92 % (90-100); BLOOD GAS OXYGEN CONTENT 15.5 Vol % (12.0-20.0); BLOOD GAS PCO2 82 mmHg (38-42); BLOOD GAS PO2 80 mmHg (61-120); BLOOD GAS TOTAL HGB 11.9 G/DL (12.0-16.0); CRITICAL VALUE YES; TEMP CORR TO 98.6
[2016-08-25 13:25] LABS: DRAW SITE LT RADIAL; FIO2 40 %; NUMBER OF ARTERIAL PUNCTURES 1; OXYGEN DEVICE BIPAP 16 IPAP /; STAT NO; ULNAR PULSE PRESENT
[2016-08-25] MEDS: SODIUM CHLOR 0.9% 1000 ML INJ 1,000 ML IV SCH (14:13)
--- NOTE | 2016-08-25 15:23 | RADRPT ---
EXAM DATE/TIME: 08/25/2016 14:47 [facility] COMPARISON: CHEST SINGLE AP, August 24, 2016, 8:31. INDICATIONS : Short of breath. MEDICAL HISTORY : Hypertension. SURGICAL HISTORY : None. ENCOUNTER: Initial ACUITY: 1 day PAIN SCORE: Non-responsive. LOCATION: Bilateral chest FINDINGS: A single view of the chest demonstrates the lungs to be hypoinflated with resolving atelectasis above the right hemidiaphragm. No confluent infiltrate or effusion. Accounting for low lung lines, the hea rt size is borderline prominent a well compensated. Osseous structures are intact with some degenerat martínez spurring of the dorsal spine. CONCLUSION: 1. Hypoinflation with resolving atelectatic changes in the right base. No confluent infiltrate. 2. Borderline prominent but well compensated heart. Uriel Solorio MD on August 25, 2016 at 15:20 Board Certified Radiologist. This report was verified electronically.
--- NOTE | 2016-08-25 15:27 | PD.CONS ---
[facility] Service Critical Care Medicine Consult Requested By Dr. Sanchez Reason for Consult Acute hypercapnic respiratory failure Acute encephalopathy Seizure Primary Care Physician Marco Harrell M.D. History of Present Illness This is a 71-year-old male with past medical history history significant for seizure disorder, type 2 diabetes, asthma/COPD, anxiety, depression, schizophrenia, bipolar disorder, morbid obesity who was brought to the emergency department yesterday 08/24/16 for evaluation of lethargy and altered mental status. Patient was admitted to the [facility] service for altered mentation secondary to sepsis (due to possible UTI and pneumonia) and hypercapnic respiratory failure. ABG on admission showed a pH of 7.23 PCO2 of 97 and PO2 of 131. Patient was placed on scheduled DuoNeb, IV Solu-Medrol and antibiotics Rocephin and azithromycin. BiPAP was initiated and pulmonology was consulted. Depakote was continued. Yesterday the patient became unresponsive and a Halicat was called. His altered mentation probably secondary to worsening CO2 retention after initial improvement, there was also a question of subclinical seizures. PH was 7.29 and PCO2 82, on BiPAP. EEG done , result pending. Critical care medicine was consulted for Acute hypercapnic respiratory failure and metabolic encephalopathy I evaluated the patient in the ICU. He is currently on BiPAP moderate distress but more awake. CT head and EEG report are pending at this time Review of Systems ROS Limitations: Clinical Condition (On BiPAP), Other Past Family Social History Allergies: Coded Allergies: No Known Allergies (Verified , 08/24/16) UNABLE TO CONFIRM ALLERGIES AT THIS TIME Past Medical History Asthma/COPD Seizure disorder Bipolar disorder. Chronic kidney disease. Depression Schizophrenia. Anxiety disorder. Hypertension. Diabetes. Benign prostatic hypertrophy. Past Surgical History History of thoracic surgery Reported Medications Lisinopril. Glucotrol. Albuterol. Invega. Seroquel. Stool softeners. Tresiba FlexTouch insulin pen. Klonopin. Flomax. Depakote ER Amlodipine Active Ordered Medications Reviewed Family History Reviewed Social History Smoker, at least half pack a day. Unable to confirm whether he is a current smoker Physical Exam Vital Signs Vital Signs Date Time Temp Pulse Resp B/P Pulse Ox O2 Delivery O2 Flow Rate FiO2 08/25/16 15:00 77 08/25/16 15:00 77 27 172/81 91 08/25/16 12:00 97 45 08/25/16 10:00 86 08/25/16 09:55 94 30 08/25/16 09:04 96 Nasal Cannula 3.00 08/25/16 08:00 98.9 08/25/16 08:00 80 08/25/16 06:00 84 08/25/16 04:13 95 30 08/25/16 04:00 98.6 75 22 147/73 95 08/25/16 04:00 75 08/25/16 03:00 85 08/25/16 02:00 79 08/25/16 01:16 94 30 08/25/16 01:00 87 08/25/16 00:05 96 30 08/25/16 00:05 96 BiPAP 30 08/25/16 00:02 99.4 84 20 128/73 94 08/25/16 00:00 82 08/24/16 23:30 97 30 08/24/16 23:20 94 2.00 08/24/16 22:30 102 192/93 97 08/24/16 22:00 96 08/24/16 20:45 95 2.00 08/24/16 20:00 97 08/24/16 19:00 97.8 92 164/91 94 08/24/16 19:00 87 08/24/16 18:03 85 08/24/16 17:05 118 08/24/16 16:38 104 08/24/16 16:17 95 Nasal Cannula 4.00 08/24/16 15:45 98.7 99 20 151/75 99 08/24/16 15:45 98 Physical Exam GENERAL: Currently on BiPAP, patient is slightly somnolent but wakes up easily SKIN: Warm/dry. HEAD: Atraumatic. Normocephalic. EYES: Pupils equal and round. No scleral icterus. No injection or drainage. ENT: No nasal bleeding or discharge. NECK: Trachea midline. No JVD. CARDIOVASCULAR: Regular rate and rhythm, bradycardic during sleep. No murmur appreciated. RESPIRATORY: Bilateral scattered wheezes and rhonchi GASTROINTESTINAL: Abdomen soft, non-tender, distended and obese MUSCULOSKELETAL: No obvious deformities. No clubbing. No cyanosis. No edema. NEUROLOGICAL: Somnolent but wakes up easily. He moves all extremities but refuses to follow commands PSYCHIATRIC: Shows intermittent agitation Laboratory Laboratory Tests Test 08/24/16 08/24/16 08/24/16 08/25/16 16:45 20:50 21:21 00:30 Troponin I LESS THAN 0.02 Blood Gas Puncture Site LT RADIAL Blood Gas Patient Temperature 98.6 Blood Gas HCO3 39 Blood Gas Base Excess 11.2 Blood Gas Oxygen Saturation 96 Arterial Blood pH 7.23 Arterial Blood Partial 97 Pressure CO2 Arterial Blood Partial 131 Pressure O2 Arterial Blood Oxygen Content 16.5 Arterial Blood 1.6 Carboxyhemoglobin Arterial Blood Methemoglobin 1.2 Blood Gas Hemoglobin 12.1 Oxygen Delivery Device AMBU Blood Gas Liter Flow 15 Blood Gas Inspired Oxygen 100 White Blood Count 6.4 Red Blood Count 4.31 Hemoglobin 12.0 Hematocrit 39.0 Mean Corpuscular Volume 90.4 Mean Corpuscular Hemoglobin 27.8 Mean Corpuscular Hemoglobin 30.8 Concent Red Cell Distribution Width 16.2 Platelet Count 139 Mean Platelet Volume 9.3 Neutrophils (%) (Auto) 55.7 Lymphocytes (%) (Auto) 21.6 Monocytes (%) (Auto) 22.5 Eosinophils (%) (Auto) 0.0 Basophils (%) (Auto) 0.2 Neutrophils # (Auto) 3.5 Lymphocytes # (Auto) 1.4 Monocytes # (Auto) 1.4 Eosinophils # (Auto) 0.0 Basophils # (Auto) 0.0 CBC Comment DIFF FINAL Differential Comment Lactic Acid Level 1.2 Valproic Acid (Depakene) Level 40 Sodium Level 144 Potassium Level 5.0 Chloride Level 102 Carbon Dioxide Level 34.1 Anion Gap 8 Blood Urea Nitrogen 34 Creatinine 1.52 Estimat Glomerular Filtration 55 Rate Random Glucose 264 Calcium Level 9.0 Total Bilirubin 0.1 Aspartate Amino Transf 10 (AST/SGOT) Alanine Aminotransferase 13 (ALT/SGPT) Alkaline Phosphatase 61 Total Protein 7.2 Albumin 2.6 Nasal Screen MRSA (PCR) MRSA NOT DETECTED Test 08/25/16 08/25/16 08/25/16 01:15 06:52 13:15 Blood Gas Puncture Site RT RADIAL LT RADIAL Blood Gas Patient Temperature 98.6 98.6 Blood Gas HCO3 39 38 Blood Gas Base Excess 12.1 11.5 Blood Gas Oxygen Saturation 88 92 Arterial Blood pH 7.31 7.29 Arterial Blood Partial 80 82 Pressure CO2 Arterial Blood Partial 61 80 Pressure O2 Arterial Blood Oxygen Content 15.2 15.5 Arterial Blood 1.8 1.9 Carboxyhemoglobin Arterial Blood Methemoglobin 1.6 1.3 Blood Gas Hemoglobin 12.4 11.9 Oxygen Delivery Device BiPAP BIPAP 16 IPAP / Blood Gas Ventilator Setting 12IPAP/5EPAP Blood Gas Inspired Oxygen 30 40 White Blood Count 6.3 Red Blood Count 4.28 Hemoglobin 11.9 Hematocrit 39.0 Mean Corpuscular Volume 91.1 Mean Corpuscular Hemoglobin 27.9 Mean Corpuscular Hemoglobin 30.6 Concent Red Cell Distribution Width 15.9 Platelet Count 138 Mean Platelet Volume 9.4 Neutrophils (%) (Auto) 59.8 Lymphocytes (%) (Auto) 20.4 Monocytes (%) (Auto) 19.1 Eosinophils (%) (Auto) 0.4 Basophils (%) (Auto) 0.3 Neutrophils # (Auto) 3.8 Lymphocytes # (Auto) 1.3 Monocytes # (Auto) 1.2 Eosinophils # (Auto) 0.0 Basophils # (Auto) 0.0 CBC Comment DIFF FINAL Differential Comment Sodium Level 144 Potassium Level 4.6 Chloride Level 103 Carbon Dioxide Level 38.9 Anion Gap 2 Blood Urea Nitrogen 33 Creatinine 1.17 Estimat Glomerular Filtration 75 Rate Random Glucose 142 Calcium Level 9.0 Date/Time Procedure Status Source Growth 08/24/16 09:12 Urine Culture - Preliminary Resulted Urine Catheterized Urine IMMATURE GROWTH - REINCUBATE 08/24/16 08:20 Aerobic Blood Culture - Preliminary Resulted Blood Peripheral NO GROWTH IN 1 DAY 08/24/16 08:20 Anaerobic Blood Culture - Preliminary Resulted Blood Peripheral NO GROWTH IN 1 DAY Result Diagram: 08/25/16 0652 08/25/16 0652 Imaging CXR bibasilar atelectasis Septic Shock Reassessment Heart: Regular rate and rhythm Lungs: Course, Diminished Assessment and Plan Assessment and Plan NEURO: Metabolic encephalopathy CO2 narcosis Possible subclinical seizures History of seizure disorder Schizophrenia, bipolar disorder, depression -Monitor for seizures, Ativan when necessary for seizure control -Continue Depakote -Await EEG, if abnormal consult neurology. CT head pending -Continue Seroquel and clonazepam RESP: Acute hypercapnic respiratory failure Asthma/COPD -Continue BiPAP change setting to IPAP 18 EPAP 5 -DuoNeb every 6 hours scheduled. Continue IV Solu-Medrol 40 mg every 8 hours -Pulmonary Dr. Dodson -IV antibiotics Rocephin and Zithromax -CT chest pr Dr. Dodson CV: -Normal saline IV fluids 100 ml per hour GI: -Nothing by mouth except meds. IV protonix : -Monitor renal function closely. Creatinine slowly improving ID: -Continue Rocephin and azithromycin for now -Follow-up on cultures negative to date HEME: -Monitor CBC, CMP, coags ENDO: Type 2 diabetes -Sliding-scale insulin -Electrolyte replacement protocol PROPH: -Bilateral lower extremity SCDs. Lovenox 40 mg subcutaneous daily. Protonix 40 mg IV daily LINES: -Utilize peripheral IVs, central line if needed CC time 45min Code Status Full Daysi Grace MD Aug 25, 2016 15:27
[2016-08-25] MEDS ORDERED: LORazepam 2 MG/ML VIAL IV PUSH PRN (16:30)
[2016-08-25] MEDS: PANTOPRAZOLE SODIUM 40 MG VIAL IV PUSH SCH (18:00)
[2016-08-25 19:00] LABS: BLOOD, URINE NEG (NEG); GLUCOSE,URINE TRACE mg/dL (NEG); KETONE, URINE NEG (NEG); NITRITE,URINE NEG (NEG); URINE COLOR YELLOW (YELLW/STRAW)
--- NOTE | 2016-08-25 19:01 | RADRPT ---
EXAM DATE/TIME: 08/25/2016 18:14 [facility] COMPARISON: CHEST SINGLE AP, August 25, 2016, 14:47. INDICATIONS : Evaluate for atelectasis. RADIATION DOSE: 9.89 CTDIvol (mGy) MEDICAL HISTORY : Cardiovascular disease. Seizures. Hypertension. Renal failure, diabetes, Schizophornia. SURGICAL HISTORY : None. ENCOUNTER: Initial ACUITY: 1 day PAIN SCALE: 3/10 LOCATION: Bilateral lower chest TECHNIQUE: Volumetric scanning of the chest was performed. Using automated exposure control and adjustment of t he mA and/or kV according to patient size, radiation dose was kept as low as reasonably achievable to obtain optimal diagnostic quality images. FINDINGS: LUNGS: Mild bibasilar atelectasis. This is more pronounced on the right. No discrete infiltrate. No mass. PLEURAE: Tiny bilateral pleural effusions. MEDIASTINUM: The heart is mildly enlarged. Ulnar arteries and aorta are normal in caliber. No mass or adenopathy. AXILLAE: Within normal limits. No lymphadenopathy. MUSCULOSKELETAL: Within normal limits for patient age. MISCELLANEOUS: The visualized upper abdominal organs demonstrate no acute abnormality. CONCLUSION: 1. Tiny bilateral pleural effusions and bibasilar atelectasis. 2. Cardiomegaly. Alfredito Canada Jr., MD on August 25, 2016 at 18:56 Board Certified Radiologist. This report was verified electronically.
[2016-08-25 19:05] LABS: COMMENT (UR) CATH-CULT NOT IND; CULTURE IF INDICATED CATH CULTURE NOT IND
--- NOTE | 2016-08-25 19:05 | RADRPT ---
EXAM DATE/TIME: 08/25/2016 18:08 [facility] COMPARISON: CT BRAIN W/O CONTRAST, April 19, 2016, 10:20. INDICATIONS : Evaluate for CVA. RADIATION DOSE: 53.96 CTDIvol (mGy) MEDICAL HISTORY : Cardiovascular disease. Seizures. Hypertension.Renal failure, diabetes, Schizophornia. SURGICAL HISTORY : None. ENCOUNTER: Initial ACUITY: 1 day PAIN SCALE: 6/10 LOCATION: Bilateral cranial TECHNIQUE: Multiple contiguous axial images were obtained of the head. Using automated exposure control and adj ustment of the mA and/or kV according to patient size, radiation dose was kept as low as reasonably a chievable to obtain optimal diagnostic quality images. FINDINGS: CEREBRUM: The ventricles are normal for age. No evidence of midline shift, mass lesion, hemorrhage or acute in farction. No extra-axial fluid collections are seen. POSTERIOR FOSSA: The cerebellum and brainstem are intact. The 4th ventricle is midline. The cerebellopontine angle i s unremarkable. EXTRACRANIAL: The visualized portion of the orbits is intact. SKULL: The calvaria is intact. No evidence of skull fracture. CONCLUSION: Normal examination. Alfredito Canada Jr., MD on August 25, 2016 at 19:00 Board Certified Radiologist. This report was verified electronically.
--- NOTE | 2016-08-25 19:21 | MB ---
cc: DILLAN CRABTREE DATE OF CONSULTATION: 08/25/2016. REASON FOR CONSULTATION: Respiratory failure and hypoxia. HISTORY OF PRESENT ILLNESS: This is a 71-year-old -Citizen Of [place] male who was brought in for a history of altered mental status, lethargy and respiratory distress. The patient was seen in the emergency room and was suspected to have sepsis, possible urinary tract infection, pneumonia and respiratory failure. He was placed on a BiPAP mask since his initial blood gases demonstrated a pH of 7.20 with a pCO2 of 97 and pO2 of 130. The patient has remained lethargic and on BiPAP. His blood gases did improve some with a pCO2 down to 82. The patient is now on IV antibiotics and IV Solu-Medrol and he does respond weakly to loud commands. The patient has had a history for seizure disorder as well and has been on therapy for the same. PAST MEDICAL HISTORY: 1. COPD. 2. Asthma. 3. History of depression and anxiety. 4. History of bipolar disorder. 5. History of seizures. 6. Chronic kidney disease. 7. Hypertension. 8. Diabetes mellitus type 2. PAST SURGICAL HISTORY: The surgical history includes: 1. Thoracotomy in the past. ALLERGIES: NO KNOWN DRUG ALLERGIES LISTED. FAMILY HISTORY: Noncontributory HABITS: The patient smokes half to one-pack per day AND has done so for over thirty years. Alcohol use unknown. MEDICATIONS: The medication list included: 1. Depakote. 2. Amlodipine. 3. Seroquel. 4. Glucotrol. 5. Lisinopril. 6. Invega. 7. Klonopin. 8. Flomax. 9. Lisinopril. REVIEW OF SYSTEMS: The patient is lethargic and on BiPAP and is unable to respond. PHYSICAL EXAMINATION: GENERAL: This is a moderately obese elderly man who is on BiPAP. He is lethargic. VITAL SIGNS: His blood pressure is 160/90, pulse is 85, respirations 22, temperature 98.2. HEAD, EYES, EARS, NOSE, THROAT: Head normocephalic. The pupils are reactive. The sclerae were injected. Throat has no inflammation. NECK: The neck is supple without venous distention. No thyromegaly. CHEST: Decreased breath sounds with bilateral expiratory wheezes, prolonged expirations. HEART: Heart sounds are regular. S1 and S2. No murmur. No S3. ABDOMEN: Abdomen is soft obese without masses. No organomegaly or tenderness. EXTREMITIES: Minimal edema. Peripheral pulses are well-felt. NEUROLOGIC: Reflexes are not elicited. The patient is lethargic. He does withdraw to stimuli. Babinski is negative. Cranial nerves not tested. SKIN: Skin was dry and warm. IMPRESSION: 1. Hypercapnic respiratory failure. 2. COPD with asthma and chronic bronchitis. 3. History of seizure disorder. 4. History of bipolar disorder. 5. Diabetes mellitus type 2. 6. Hypertension. 7. Possible aspiration pneumonia. PLAN: 1. The patient will be maintained on IV antibiotic therapy including Rocephin 1 gram and he will be placed on Solu-Medrol 40 milligrams IV q. 8 hours. 2. BiPAP will be increased to 18/6 and FI02 of 30%. 3. Blood gases to be repeated in an hour. 4. The patient will also be given nebulized DuoNeb solution four times a day. 5. Repeat chest x-ray to be done in the a.m. 6. A chest CT will be ordered to evaluate him for any atelectasis and/or mass and pneumonia. 7. The patient will be maintained on DuoNeb solution every four hours. 8. Seizure precautions have been ordered. 9. CBC and electrolytes are pending. 10. Blood gases repeated after the new settings on BiPAP. If he fails that, we will have to intubate and ventilate him. Thank you Dr. Sanchez for this consultation. MD RICO Westbrook/ILA /6:48 PM /7:05 PM
[2016-08-25] MEDS: TAMSULOSIN HCL 0.4 MG CAP PO SCH (20:04)
[2016-08-25] MEDS: DIVALPROEX SODIUM E.R. 500 MG TAB PO SCH (20:04)
[2016-08-25] MEDS: OXYBUTYNIN CHLORIDE 5 MG TAB PO SCH (20:04)
[2016-08-25] MEDS ORDERED: levETIRAcetam 1000 MG INJ 100 ML IV ONE (22:45)
[2016-08-26] VITALS (18 sets, daily range): BP systolic 148–190; BP diastolic 70–117; PULSE 36–85; RESP 12–30; TEMP 97.1–98.7; O2SAT 89–100
[2016-08-26] MEDS: SODIUM CHLOR 0.9% 1000 ML INJ 1,000 ML IV SCH (03:33)
--- NOTE | 2016-08-26 04:13 | RADRPT ---
EXAM DATE/TIME: 08/26/2016 02:59 [facility] COMPARISON: CHEST SINGLE AP, August 25, 2016, 14:47. INDICATIONS : Shortness of breath, possible pulmonary disease. MEDICAL HISTORY : Cardiovascular disease. Hypertension Diabetes mellitus type II. Renal failure SURGICAL HISTORY : None. ENCOUNTER: Subsequent ACUITY: 2 days PAIN SCORE: 0/10 LOCATION: Bilateral chest FINDINGS: There is discoid atelectasis in the left midlung with slight right lung base atelectasis and/or infil trate. Heart and mediastinum have not changed. CONCLUSION: Slight right lung base atelectasis and/or infiltrate and left midlung atelectasis. Ada Peña MD on August 26, 2016 at 4:11 Board Certified Radiologist. This report was verified electronically.
[2016-08-26] MEDS: RESP: ALBUTEROL 2.5 MG/IPRATROPIUM 0.5 MG NEB (SCH) NEB ×4 (04:30→22:00)
[2016-08-26 04:38] LABS: BICARBONATE 38.8 MEQ/L (21.0-32.0); POTASSIUM 5.5 MEQ/L (3.5-5.1)
[2016-08-26 04:50] LABS: BASOPHIL % 0.3 % (0.0-2.0); HEMATOCRIT 38.7 % (39.0-51.0); HEMO FLAGS DIFF FINAL; LYMPH % 23.8 % (9.0-44.0); MEAN CELL VOLUME 91.4 FL (80.0-100.0); MEAN CORPUSCULAR HGB CONC 30.7 % (32.0-36.0); NEUT % 72.9 % (16.0-70.0); PLATELET COUNT 136 TH/MM3 (150-450); RED BLOOD COUNT 4.24 MIL/MM3 (4.50-5.90); RED CELL DISTRIBUTION WIDTH 15.8 % (11.6-17.2); WHITE BLOOD COUNT 4.1 TH/MM3 (4.0-11.0)
[2016-08-26] MEDS: methylPREDNISolone SOD SUCC 40 MG/1 ML VIAL IV SCH ×3 (05:15→19:42)
--- NOTE | 2016-08-26 06:25 | MG ---
cc: CLARITA GUILLAUME MD, ARIANA Lab No: Date: 08/25/2016 Age: 71 Sex: M Race: DATE OF : 1945 REFERRING PHYSICIAN Demetrius Delgadillo READING PHYSICIAN: Clarita Guillaume MD. MEDICAL HISTORY: 1. Encephalopathy with history of anxiety. 2. Asthma. 3. Bipolar. 4. Arthritis 5. Depression. 6. Schizophrenia 7. Hypertension 8. Diabetes 9. Benign prostatic hypertrophy. 10. Renal failure 11. Seizure. MEDICATIONS: 1. Norvasc. 2. Klonopin 3. Seroquel 4. Heparin 5. Azithromycin 6. Flomax DESCRIPTION: The background activity is polymorphic, Low amplitude theta activity. There is intermittent generalized theta activity superimpose by excess beta activity. The EEG recording was contaminated with excessive movement artifact. There were no electrographic seizures of epileptiform discharges. Photic stimulation did not elicit a driving response. INTERPRETATION This is an abnormal EEG recording with background slowing and intermittent slowing that may indicate mild to moderate encephalopathy. Excess beta activity is a nonspecific findings that may be related to medication adverse effects such as benzodiazepines and Barbiturates. Absence of electrographic seizures or epileptiform discharges does not exclude diagnosis of epilepsy. Clinical correlation is recommended. MD CRISTIANO Levi/steve /10:19 PM /6:14 AM MTDOmar
[2016-08-26] MEDS: levETIRAcetam 1000 MG INJ 100 ML IV SCH ×2 (06:26→17:41)
[2016-08-26 07:55] LABS: BLOOD GAS BASE EXCESS 7.8 mmol/L (-2-2); BLOOD GAS CARBOXYHEMOGLOBIN 1.6 % (0-4); BLOOD GAS HCO3 34 mmol/L (22-26); BLOOD GAS METHEMOGLOBIN 1.2 % (0-2); BLOOD GAS O2 HGB SATURATION 90 % (90-100); BLOOD GAS OXYGEN CONTENT 15.7 Vol % (12.0-20.0); BLOOD GAS PCO2 66 mmHg (38-42); BLOOD GAS PO2 69 mmHg (61-120); BLOOD GAS TOTAL HGB 12.4 G/DL (12.0-16.0)
[2016-08-26 07:56] LABS: CRITICAL VALUE YES; DRAW SITE LT RADIAL; LITER FLOW 1 L/M; NUMBER OF ARTERIAL PUNCTURES 1; OXYGEN DEVICE NASAL CANNULA; STAT YES; TEMP CORR TO 98.6; ULNAR PULSE PRESENT
--- NOTE | 2016-08-26 08:35 | HHI.CCPN ---
Subjective Remarks/Hospital Course This is a 71-year-old male with past medical history history significant for seizure disorder, type 2 diabetes, asthma/COPD, anxiety, depression, schizophrenia, bipolar disorder, morbid obesity who was brought to the emergency department yesterday 08/24/16 for evaluation of lethargy and altered mental status. Patient was admitted to the [facility] service for altered mentation secondary to sepsis (due to possible UTI and pneumonia) and hypercapnic respiratory failure. ABG on admission showed a pH of 7.23 PCO2 of 97 and PO2 of 131. Patient was placed on scheduled DuoNeb, IV Solu-Medrol and antibiotics Rocephin and azithromycin. BiPAP was initiated and pulmonology was consulted. Depakote was continued. Yesterday the patient became unresponsive and a Halicat was called. His altered mentation probably secondary to worsening CO2 retention after initial improvement, there was also a question of subclinical seizures. PH was 7.29 and PCO2 82, on BiPAP. EEG done , result pending. Critical care medicine was consulted for Acute hypercapnic respiratory failure and metabolic encephalopathy. I evaluated the patient in the ICU. He is currently on BiPAP moderate distress but more awake. CT head and EEG report are pending at this time SUBJ 08/26: Patient has had been taken off BiPAP. Somnolent but wakes up easily refuses to follow commands as underlying psychosis. ABG shows pH 7.33 and PCO2 of 66 which is improved from yesterday. CT chest did not reveal any acute infiltrates CT head normal. EEG shows no seizure activity possible encephalopathy Objective Vital Signs Date Time Temp Pulse Resp B/P Pulse Ox O2 Delivery O2 Flow Rate FiO2 08/26/16 08:04 100 30 08/26/16 07:45 Nasal Cannula 1.00 08/26/16 06:00 70 08/26/16 04:00 98.1 23 08/26/16 00:00 148/70 Intake and Output 08/25/16 08/25/16 08/26/16 08:00 16:00 00:00 Intake Total 755 ml 464 ml Output Total 1300 ml Balance 755 ml -836 ml Result Diagram: 08/26/16 0319 08/26/16 0319 Other Results Laboratory Tests Test 08/25/16 08/26/16 13:15 07:42 Blood Gas Puncture Site LT RADIAL LT RADIAL Blood Gas Patient Temperature 98.6 98.6 Blood Gas HCO3 38 mmol/L 34 mmol/L (22-26) (22-26) Blood Gas Base Excess 11.5 mmol/L 7.8 mmol/L (-2-2) (-2-2) Blood Gas Oxygen Saturation 92 % (90-100) 90 % (90-100) Arterial Blood pH 7.29 7.33 (7.380-7.420) (7.380-7.420) Arterial Blood Partial 82 mmHg (38-42) 66 mmHg (38-42) Pressure CO2 Arterial Blood Partial 80 mmHg 69 mmHg Pressure O2 (61-120) (61-120) Arterial Blood Oxygen Content 15.5 Vol % 15.7 Vol % (12.0-20.0) (12.0-20.0) Arterial Blood 1.9 % (0-4) 1.6 % (0-4) Carboxyhemoglobin Arterial Blood Methemoglobin 1.3 % (0-2) 1.2 % (0-2) Blood Gas Hemoglobin 11.9 G/DL 12.4 G/DL (12.0-16.0) (12.0-16.0) Oxygen Delivery Device BIPAP 16 IPAP NASAL CANNULA / Blood Gas Inspired Oxygen 40 % Blood Gas Liter Flow 1 L/M Imaging CXR bibasilar atelectasis Objective Remarks GENERAL: Currently just taken off BiPAP, patient is slightly somnolent but wakes up easily SKIN: Warm/dry. HEAD: Atraumatic. Normocephalic. EYES: Pupils equal and round. No scleral icterus. No injection or drainage. ENT: No nasal bleeding or discharge. NECK: Trachea midline. No JVD. CARDIOVASCULAR: Regular rate and rhythm, bradycardic during sleep. No murmur appreciated. RESPIRATORY: Bilateral scattered wheezes and rhonchi GASTROINTESTINAL: Abdomen soft, non-tender, distended and obese MUSCULOSKELETAL: No obvious deformities. No clubbing. No cyanosis. No edema. NEUROLOGICAL: Somnolent but wakes up easily. Moves all extremities but refuses to follow commands, refuses to open eyes PSYCHIATRIC: Shows intermittent agitation A/P Assessment and Plan NEURO: Metabolic encephalopathy CO2 narcosis Possible subclinical seizures History of seizure disorder Schizophrenia, bipolar disorder, depression -Monitor for seizures, Ativan when necessary for seizure control -Continue Depakote. Keppra added by Dr. Guillaume -EEG negative for sz. CT head normal -Continue Seroquel and hold clonazepam -Psych consulted for psychosis RESP: Acute hypercapnic respiratory failure Asthma/COPD -Continue BiPAP IPAP 18 EPAP 5 with intermittent breaks -DuoNeb every 6 hours scheduled. Continue IV Solu-Medrol 40 mg every 8 hours -Pulmonary Dr. Dodson -IV antibiotics Rocephin and Zithromax -CT chest pr Dr. Dodson- negative for acute infiltrates CV: -Normal saline IV fluids 100 ml per hour GI: -Resume ADA diet if patient remains off BiPAP. IV protonix : -Monitor renal function closely. Creatinine slowly improving ID: -Continue Rocephin and azithromycin for now -Follow-up on cultures negative to date HEME: -Monitor CBC, CMP, coags ENDO: Type 2 diabetes -Sliding-scale insulin -Electrolyte replacement protocol PROPH: -Bilateral lower extremity SCDs. Lovenox 40 mg subcutaneous daily. Protonix 40 mg IV daily LINES: -Utilize peripheral IVs, central line if needed CC time 35min Daysi Grace MD Aug 26, 2016 08:35
[2016-08-26] MEDS: SODIUM CHLORIDE 0.9% FLUSH 10 ML FLUSH IV FLUSH SCH ×2 (08:58→19:42)
[2016-08-26] MEDS: DOCUSATE SODIUM 50 MG/SENNA 8.6 MG TAB PO SCH ×3 (09:00→19:42)
[2016-08-26] MEDS: QUEtiapine FUMARATE 25 MG TAB PO SCH ×3 (09:00→19:40)
[2016-08-26] MEDS: LISINOPRIL 5 MG TAB PO SCH ×2 (09:00→09:05)
[2016-08-26] MEDS: amLODIPine BESYLATE 5 MG TAB PO SCH ×2 (09:00→09:04)
[2016-08-26] MEDS: OXYBUTYNIN CHLORIDE 5 MG TAB PO SCH ×3 (09:00→19:41)
[2016-08-26] MEDS: HEPARIN SODIUM - SQ 10,000 UNITS/ML VIAL SQ SCH ×2 (09:05→19:40)
--- NOTE | 2016-08-26 09:05 | MB ---
cc: ZEINA STERN MD DATE OF CONSULTATION: 08/25/2016 REASON FOR CONSULTATION: Seizure and altered mental status. HISTORY OF PRESENT ILLNESS Mr. Berger is a 71-year-old -Maced[place] male with past medical history significant for diabetes mellitus, COPD, seizure disorder, asthma, anxiety depression, schizophrenia, bipolar disorder, obesity. He was brought to the emergency department for evaluation of altered mental status. Admitted initially to [facility] for altered mentation due to sepsis possible UTI and pneumonia and respiratory failure. The patient is on Depakote, uncertain whether it is for seizure treatment or for the bipolar.The patient became altered, with no reported of witnessed seizures. REVIEW OF SYSTEMS 12-point review of review of systems is negative except for what is stated in history of present illness. PAST MEDICAL HISTORY 1. Bipolar 2. he has anemia 3. Asthma 4. COPD 5. Anxiety 6. Depression 7. Hypertension 8. Diabetes 9. BPH 10. renal failure 11. seizure disorder 12. Arthritis PAST SURGICAL HISTORY Thoracic surgery. ALLERGIES None known. MEDICATIONS: 1. Lisinopril 2. Glucotrol 3. Albuterol 4. Invega 5. Seroquel 6. Klonopin 7. Flomax 8. Diprivan 9. Depakote. 10. Amlodipine. SOCIAL HISTORY According to medical records. The patient is smoker, half pack a day and no history of alcohol or illicit drug abuse. FAMILY HISTORY Noncontributory. PHYSICAL EXAMINATION IN GENERAL: Obese -[place] on BiPap been large in awake with slurred speech. HEAD, EYES, EARS, NOSE, AND THROAT: Atraumatic, normocephalic. Exophthalmic eyes. No gaze deviation and injected scale NECK: Supple without meningeal irritation. CHEST: Decreased breath sounds bilateral expiratory wheezes. HEART: Regular rate and rhythm. ABDOMEN: Soft, nontender, obese. EXTREMITIES: Mild edema bilateral extremities, moves all extremities. NEUROLOGIC: Awake, alert and dysarthric, irritable. Oriented to person, time, August 2016 and date of (August 2016) Not oriented to place, Follows commands. Moves extremities. No dysphasia. Moves extremities equally. Unable to assess motor sensory or cerebellar function due to lack of cooperation. Reflexes 1+ bilateral symmetrical. Plantar bilaterally downgoing. LABORATORY DATA White blood cells 6.4, hemoglobin 12, MCV 90.4, platelet 139, anion gap 2, BUN 33, creatinine 0.17, random glucose 142, ammonia elevated at 65. Albumin low at 10.6, vitamin B 12 1,775. Thyroid stimulating hormone 30, <<6:51>> 1.74. INR 1. Urine unremarkable. DIAGNOSTIC IMAGING: -Head CT scan normal examination with no acute intracranial abnormalities. DIAGNOSTIC IMPRESSION: 1. Esophagoplasty. 2. Possible etiology is metabolic encephalopathy/hyper ammoniemic encephalopathy, non-compulsive seizures. 3. Schizophrenia. 4. Bipolar disorder. 5. Acute respiratory failure. 6. Asthma/ chronic obstructive pulmonary disease. 7. Diabetes. PLAN: 1. Neuro checks q one hourly. 2. Lower the dose of Depakote and discontinue given the hypoalbuminemia. 3. Load with Keppra 1500 4. Keppra 1000mg Q12 h. 4. Electroencephalogram. 5. Seizure precautions. 6. Deep venous thrombosis prophylaxis. 7. Supportive measures replenish electrolyte derangement and control blood sugar. 8. GI prophylaxis. Thank you for the opportunity to participate in the care of your patient. MD CRISTIANO Levi/steve /10:32 PM /7:47 AM KIERRA
[2016-08-26] MEDS: INSULIN ASPART SUPPLEMENTAL SCALE SQ SCH ×3 (11:00→21:00)
[2016-08-26] MEDS: cefTRIAXone INJ 1,000 MG in SODIUM CHLORIDE 0.9% INJ 100 ML IV SCH (11:38)
--- NOTE | 2016-08-26 12:29 | HHI.PR ---
Subjective Subjective Remarks alan called, pt. unresponsive ? seizure BP elevated, 180/11 required manual ventilation with ambu ABGs done, noted acidotic, now on bipap tx to ICU lethargic, attempts to open eyes on BIPAP unable to obtain ROS Review of Systems Constitutional Constitutional Remarks unable to obtain ROS Vitals/Results Intake & Output 08/25/16 08/25/16 08/26/16 15:00 23:00 07:00 Intake Total 464 ml 676 ml Output Total 1300 ml 400 ml Balance -836 ml 276 ml Intake Oral 355 ml IV Total 109 ml 676 ml Output Urine Total 1300 ml 400 ml # Voids 3 # Bowel Movements 0 0 Vital Signs Vital Signs Date Time Temp Pulse Resp B/P Pulse Ox O2 Delivery O2 Flow Rate FiO2 08/26/16 11:19 99 30 08/26/16 10:00 37 08/26/16 08:04 100 30 08/26/16 08:00 97.6 36 16 177/79 97 08/26/16 08:00 36 08/26/16 07:45 96 Nasal Cannula 1.00 08/26/16 07:15 99 Nasal Cannula 4.00 08/26/16 06:00 70 08/26/16 04:30 100 30 08/26/16 04:00 48 08/26/16 04:00 98.1 48 23 94 08/26/16 02:00 76 08/26/16 00:26 96 30 08/26/16 00:00 98.7 40 12 148/70 97 08/26/16 00:00 48 08/25/16 22:00 48 08/25/16 21:51 100 30 08/25/16 20:00 98.0 50 34 98 08/25/16 20:00 50 08/25/16 19:56 100 Nasal Cannula 3.00 08/25/16 18:31 65 08/25/16 18:27 71 08/25/16 18:00 55 08/25/16 17:15 51 08/25/16 17:01 68 13 165/72 80 08/25/16 17:01 68 08/25/16 17:01 68 08/25/16 17:01 68 08/25/16 17:01 68 08/25/16 17:01 68 08/25/16 16:47 98 30 08/25/16 16:01 49 6/2/17 16:01 49 08/25/16 16:01 49 13 142/65 94 08/25/16 16:01 49 08/25/16 16:01 49 08/25/16 16:01 49 08/25/16 16:01 49 08/25/16 16:00 50 08/25/16 16:00 50 08/25/16 16:00 50 08/25/16 16:00 50 08/25/16 16:00 50 08/25/16 16:00 50 08/25/16 16:00 50 16 96 08/25/16 15:00 77 08/25/16 15:00 77 08/25/16 15:00 77 08/25/16 15:00 77 08/25/16 15:00 77 08/25/16 15:00 77 27 172/81 91 08/25/16 15:00 77 08/25/16 15:00 77 08/25/16 15:00 77 27 172/81 91 CBC/BMP: 08/26/16 0319 08/26/16 0319 Lab Results Laboratory Tests Test 08/25/16 08/25/16 08/25/16 08/25/16 13:15 14:00 15:27 19:04 Blood Gas Puncture Site LT RADIAL Blood Gas Patient Temperature 98.6 Blood Gas HCO3 38 mmol/L Blood Gas Base Excess 11.5 mmol/L Blood Gas Oxygen Saturation 92 % Arterial Blood pH 7.29 Arterial Blood Partial 82 mmHg Pressure CO2 Arterial Blood Partial 80 mmHg Pressure O2 Arterial Blood Oxygen Content 15.5 Vol % Arterial Blood 1.9 % Carboxyhemoglobin Arterial Blood Methemoglobin 1.3 % Blood Gas Hemoglobin 11.9 G/DL Oxygen Delivery Device BIPAP 16 IPAP / Blood Gas Inspired Oxygen 40 % Urine Color YELLOW Urine Turbidity CLEAR Urine pH 6.0 Urine Specific [place] 1.015 Urine Protein NEG mg/dL Urine Glucose (UA) TRACE mg/dL Urine Ketones NEG mg/dL Urine Occult Blood NEG Urine Nitrite NEG Urine Bilirubin NEG Urine Urobilinogen 2.0 MG/DL Urine Leukocyte Esterase NEG Urine RBC 1 /hpf Urine WBC 1 /hpf Microscopic Urinalysis Comment CATH-CULT NOT IND Ammonia 65 MCMOL/L Vitamin B12 Level 1775 PG/ML Thyroid Stimulating Hormone 1.740 uIU/ML 3rd Gen Lactic Acid Level 0.8 mmol/L Test 08/26/16 08/26/16 03:19 07:42 White Blood Count 4.1 TH/MM3 Red Blood Count 4.24 MIL/MM3 Hemoglobin 11.9 GM/DL Hematocrit 38.7 % Mean Corpuscular Volume 91.4 FL Mean Corpuscular Hemoglobin 28.0 PG Mean Corpuscular Hemoglobin 30.7 % Concent Red Cell Distribution Width 15.8 % Platelet Count 136 TH/MM3 Mean Platelet Volume 9.5 FL Neutrophils (%) (Auto) 72.9 % Lymphocytes (%) (Auto) 23.8 % Monocytes (%) (Auto) 3.0 % Eosinophils (%) (Auto) 0.0 % Basophils (%) (Auto) 0.3 % Neutrophils # (Auto) 3.0 TH/MM3 Lymphocytes # (Auto) 1.0 TH/MM3 Monocytes # (Auto) 0.1 TH/MM3 Eosinophils # (Auto) 0.0 TH/MM3 Basophils # (Auto) 0.0 TH/MM3 CBC Comment DIFF FINAL Differential Comment Sodium Level 140 MEQ/L Potassium Level 5.5 MEQ/L Chloride Level 101 MEQ/L Carbon Dioxide Level 38.8 MEQ/L Anion Gap 0 MEQ/L Blood Urea Nitrogen 33 MG/DL Creatinine 1.17 MG/DL Estimat Glomerular Filtration 75 ML/MIN Rate Random Glucose 181 MG/DL Calcium Level 9.0 MG/DL Blood Gas Puncture Site LT RADIAL Blood Gas Patient Temperature 98.6 Blood Gas HCO3 34 mmol/L Blood Gas Base Excess 7.8 mmol/L Blood Gas Oxygen Saturation 90 % Arterial Blood pH 7.33 Arterial Blood Partial 66 mmHg Pressure CO2 Arterial Blood Partial 69 mmHg Pressure O2 Arterial Blood Oxygen Content 15.7 Vol % Arterial Blood 1.6 % Carboxyhemoglobin Arterial Blood Methemoglobin 1.2 % Blood Gas Hemoglobin 12.4 G/DL Oxygen Delivery Device NASAL CANNULA Blood Gas Liter Flow 1 L/M Physical Exam General General Appearance: Well Developed, Well Nourished Appearance Remarks on BIPAP Eyes Eye Exam: Pupils Equal Ears & Nose Ears & Nose Exam: Nasal Mucosa [place] Throat Throat Exam: Oral Mucosa [place] & Moist Neck Neck Exam: Neck Supple, Trachea Midline Pulmonary Resp Exam: Decreased Bases Cardiology CV Exam: Regular Gastrointestinal/Abdomen GI Exam: Soft, Non-Tender, Bowel Sounds Present, Non-Distended Musculoskeletal MS Exam: Joints Intact Integumentary Skin Exam: Warm Extremeties Extremities Exam: Pedal Pulses Palpable, Trace Edema Neurologic Neuro Remarks lethargic VTE Prophylaxis VTE Prophylaxis Device: SCDs Assessment/Plan Problem List: (1) Respiratory failure (2) Hyperlipidemia (3) Encephalopathy (4) HTN (hypertension) (5) VENKAT (acute kidney injury) (6) UTI (urinary tract infection) (7) Hyperkalemia (8) SIRS (systemic inflammatory response syndrome) (9) Schizophrenia (10) Seizure disorder (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 mental status ? poss. encephalopathy, SIRS with UTI, poss. PNA continue abx, follow urine cultures CXR ? pna swallow eval. VENKAT renal function better continue IVF obtunded ? seizure, resp. failure, poss hypoventilation, ABG showed resp. acidosis. Hallicat called 08/24 continue BIPAP consult pulmonology duonebs poss seizure, has seizure disorder CT head today check EEG will order B12, TSH, RPR consult neurology Valproic acid 40 continue Depakote Heparin for DVT prophylaxis labs in am condition guarded D/W RN D/W Dr. Sanchez This patient was seen by myself and Dr. Sanchez, this note is written on her behalf. Problem Qualifiers (1) Respiratory failure: Qualified Code: J96.01 - Acute respiratory failure with hypoxia and hypercapnia (2) Hyperlipidemia: Qualified Code: E78.5 - Hyperlipidemia, unspecified hyperlipidemia type (3) HTN (hypertension): Qualified Code: I10 - Essential hypertension (4) UTI (urinary tract infection): Qualified Code: N39.0 - Urinary tract infection without hematuria, site unspecified (5) Schizophrenia: Qualified Code: F20.9 - Schizophrenia, unspecified type Ly Burton Aug 26, 2016 12:29
[2016-08-26] MEDS: AZITHROMYCIN INJ 500 MG in SODIUM CHLOR 0.9% 250 ML INJ 250 ML IV SCH (13:58)
--- NOTE | 2016-08-26 13:58 | HHI.PR ---
Subjective Remarks Awake and talking. Wants Bipap off. Wants a diet. ABG better. No Seizure. Objective Vital Signs Date Time Temp Pulse Resp B/P Pulse Ox O2 Delivery O2 Flow Rate FiO2 08/26/16 12:00 56 08/26/16 12:00 97.1 56 14 172/77 89 08/26/16 11:19 99 30 08/26/16 10:00 37 08/26/16 08:04 100 30 08/26/16 08:00 97.6 36 16 177/79 97 08/26/16 08:00 36 08/26/16 07:45 96 Nasal Cannula 1.00 08/26/16 07:15 99 Nasal Cannula 4.00 08/26/16 06:00 70 08/26/16 04:30 100 30 08/26/16 04:00 48 08/26/16 04:00 98.1 48 23 94 08/26/16 02:00 76 08/26/16 00:26 96 30 08/26/16 00:00 98.7 40 12 148/70 97 08/26/16 00:00 48 08/25/16 22:00 48 08/25/16 21:51 100 30 08/25/16 20:00 98.0 50 34 98 08/25/16 20:00 50 08/25/16 19:56 100 Nasal Cannula 3.00 08/25/16 18:31 65 08/25/16 18:27 71 08/25/16 18:00 55 08/25/16 17:15 51 08/25/16 17:01 68 13 165/72 80 08/25/16 17:01 68 08/25/16 17:01 68 08/25/16 17:01 68 08/25/16 17:01 68 08/25/16 17:01 68 08/25/16 16:47 98 30 08/25/16 16:01 49 08/25/16 16:01 49 08/25/16 16:01 49 13 142/65 94 08/25/16 16:01 49 08/25/16 16:01 49 08/25/16 16:01 49 08/25/16 16:01 49 08/25/16 16:00 50 08/25/16 16:00 50 08/25/16 16:00 50 08/25/16 16:00 50 08/25/16 16:00 50 08/25/16 16:00 50 08/25/16 16:00 50 16 96 08/25/16 15:00 77 08/25/16 15:00 77 08/25/16 15:00 77 08/25/16 15:00 77 08/25/16 15:00 77 08/25/16 15:00 77 27 172/81 91 08/25/16 15:00 77 08/25/16 15:00 77 08/25/16 15:00 77 27 172/81 91 I/O 08/25/16 08/25/16 08/25/16 08/26/16 08/26/16 08/26/16 07:00 15:00 23:00 07:00 15:00 23:00 Intake Total 755 ml 464 ml 676 ml Output Total 1300 ml 400 ml Balance 755 ml -836 ml 276 ml Intake Oral 355 ml 355 ml IV Total 400 ml 109 ml 676 ml Output Urine Total 1300 ml 400 ml # Voids 2 3 # Bowel Movements 0 0 0 Result Diagram: 08/26/1631808/26/16318 Objective Remarks GENERAL: This is a moderately obese elderly man who is on BiPAP. He is awake HEAD, EYES, EARS, NOSE, THROAT: Head normocephalic. The pupils are reactive. The sclerae were clear. Throat has no inflammation. NECK: The neck is supple without venous distention. No thyromegaly. CHEST: Decreased breath sounds with bilateral expiratory wheezes, prolonged expirations. HEART: Heart sounds are regular. S1 and S2. No murmur. No S3. ABDOMEN: Abdomen is soft obese without masses. No organomegaly or tenderness. EXTREMITIES: Minimal edema. Peripheral pulses are well-felt. NEUROLOGIC: Reflexes are not elicited. The patient is alert . Talking now. Babinski is negative. Cranial nerves not tested. SKIN: Skin was dry and warm. Assessment and Plan Assessment and Plan IMPRESSION: 1. Hypercapnic respiratory failure. 2. COPD with asthma and chronic bronchitis. 3. History of seizure disorder. 4. History of bipolar disorder. 5. Diabetes mellitus type 2. 6. Hypertension. 7. Possible aspiration pneumonia. Plan : 1. Wean Off Bipap and place on Ventimask. 2. Duonebs qid with nebulizer 3. Cont Antibiotics. 4. Chest X ray in am 5. Seizure precautions. 6. CBC,BMP in am. 7. Cont solumedrol 40 mg IV q8h. Stephan Joshua MD Aug 26, 2016 13:58
--- NOTE | 2016-08-26 14:09 | HHI.PR ---
Subjective Subjective Remarks remains on bipap encephalopathic NPO no fever SB on telemetry HR mid 30 to 40s no pressor support no seizures observed Review of Systems Constitutional Constitutional Remarks unable to obtain ROS Vitals/Results Intake & Output 08/25/16 08/25/16 08/26/16 15:00 23:00 07:00 Intake Total 464 ml 676 ml Output Total 1300 ml 400 ml Balance -836 ml 276 ml Intake Oral 355 ml IV Total 109 ml 676 ml Output Urine Total 1300 ml 400 ml # Voids 3 # Bowel Movements 0 0 Vital Signs Vital Signs Date Time Temp Pulse Resp B/P Pulse Ox O2 Delivery O2 Flow Rate FiO2 08/26/16 12:00 56 08/26/16 12:00 97.1 56 14 172/77 89 08/26/16 11:19 99 30 08/26/16 10:00 37 08/26/16 08:04 100 30 08/26/16 08:00 97.6 36 16 177/79 97 08/26/16 08:00 36 08/26/16 07:45 96 Nasal Cannula 1.00 08/26/16 07:15 99 Nasal Cannula 4.00 08/26/16 06:00 70 08/26/16 04:30 100 30 08/26/16 04:00 48 08/26/16 04:00 98.1 48 23 94 08/26/16 02:00 76 08/26/16 00:26 96 30 08/26/16 00:00 98.7 40 12 148/70 97 08/26/16 00:00 48 08/25/16 22:00 48 08/25/16 21:51 100 30 08/25/16 20:00 98.0 50 34 98 08/25/16 20:00 50 08/25/16 19:56 100 Nasal Cannula 3.00 08/25/16 18:31 65 08/25/16 18:27 71 08/25/16 18:00 55 08/25/16 17:15 51 08/25/16 17:01 68 13 165/72 80 08/25/16 17:01 68 08/25/16 17:01 68 08/25/16 17:01 68 08/25/16 17:01 68 08/25/16 17:01 68 08/25/16 16:47 98 30 08/25/16 16:01 49 6/2/17 16:01 49 08/25/16 16:01 49 13 142/65 94 08/25/16 16:01 49 08/25/16 16:01 49 08/25/16 16:01 49 08/25/16 16:01 49 08/25/16 16:00 50 08/25/16 16:00 50 08/25/16 16:00 50 08/25/16 16:00 50 08/25/16 16:00 50 08/25/16 16:00 50 08/25/16 16:00 50 16 96 08/25/16 15:00 77 08/25/16 15:00 77 08/25/16 15:00 77 08/25/16 15:00 77 08/25/16 15:00 77 08/25/16 15:00 77 27 172/81 91 08/25/16 15:00 77 08/25/16 15:00 77 08/25/16 15:00 77 27 172/81 91 CBC/BMP: 08/26/16 0319 08/26/16 0319 Lab Results Laboratory Tests Test 08/25/16 08/25/16 08/26/16 08/26/16 15:27 19:04 03:19 07:42 Ammonia 65 MCMOL/L Vitamin B12 Level 1775 PG/ML Thyroid Stimulating Hormone 1.740 uIU/ML 3rd Gen Lactic Acid Level 0.8 mmol/L White Blood Count 4.1 TH/MM3 Red Blood Count 4.24 MIL/MM3 Hemoglobin 11.9 GM/DL Hematocrit 38.7 % Mean Corpuscular Volume 91.4 FL Mean Corpuscular Hemoglobin 28.0 PG Mean Corpuscular Hemoglobin 30.7 % Concent Red Cell Distribution Width 15.8 % Platelet Count 136 TH/MM3 Mean Platelet Volume 9.5 FL Neutrophils (%) (Auto) 72.9 % Lymphocytes (%) (Auto) 23.8 % Monocytes (%) (Auto) 3.0 % Eosinophils (%) (Auto) 0.0 % Basophils (%) (Auto) 0.3 % Neutrophils # (Auto) 3.0 TH/MM3 Lymphocytes # (Auto) 1.0 TH/MM3 Monocytes # (Auto) 0.1 TH/MM3 Eosinophils # (Auto) 0.0 TH/MM3 Basophils # (Auto) 0.0 TH/MM3 CBC Comment DIFF FINAL Differential Comment Sodium Level 140 MEQ/L Potassium Level 5.5 MEQ/L Chloride Level 101 MEQ/L Carbon Dioxide Level 38.8 MEQ/L Anion Gap 0 MEQ/L Blood Urea Nitrogen 33 MG/DL Creatinine 1.17 MG/DL Estimat Glomerular Filtration 75 ML/MIN Rate Random Glucose 181 MG/DL Calcium Level 9.0 MG/DL Blood Gas Puncture Site LT RADIAL Blood Gas Patient Temperature 98.6 Blood Gas HCO3 34 mmol/L Blood Gas Base Excess 7.8 mmol/L Blood Gas Oxygen Saturation 90 % Arterial Blood pH 7.33 Arterial Blood Partial 66 mmHg Pressure CO2 Arterial Blood Partial 69 mmHg Pressure O2 Arterial Blood Oxygen Content 15.7 Vol % Arterial Blood 1.6 % Carboxyhemoglobin Arterial Blood Methemoglobin 1.2 % Blood Gas Hemoglobin 12.4 G/DL Oxygen Delivery Device NASAL CANNULA Blood Gas Liter Flow 1 L/M Physical Exam General General Appearance: Well Developed, Well Nourished, Obese Appearance Remarks on BIPAP Eyes Eye Exam: Pupils Equal Ears & Nose Ears & Nose Exam: Nasal Mucosa [place] Throat Throat Exam: Oral Mucosa [place] & Moist Neck Neck Exam: Neck Supple, Trachea Midline Pulmonary Resp Exam: Decreased Bases Cardiology CV Exam: Regular Gastrointestinal/Abdomen GI Exam: Soft, Non-Tender, Bowel Sounds Present, Non-Distended Musculoskeletal MS Exam: Joints Intact Integumentary Skin Exam: Warm Extremeties Extremities Exam: Pedal Pulses Palpable, Trace Edema Neurologic Neuro Remarks lethargic VTE Prophylaxis VTE Prophylaxis Device: SCDs Assessment/Plan Problem List: (1) Respiratory failure (2) Hyperlipidemia (3) Encephalopathy (4) HTN (hypertension) (5) VENKAT (acute kidney injury) (6) UTI (urinary tract infection) (7) Hyperkalemia (8) SIRS (systemic inflammatory response syndrome) (9) Schizophrenia (10) Seizure disorder (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 mental status ? poss. encephalopathy, SIRS with UTI, poss. PNA continue abx, follow urine cultures, negative so far CXR ? pna swallow eval. -keep NPO, too lethargic to start feeding VENKAT renal function better continue IVF Resp. failure obtunded ? seizure, resp. failure, poss hypoventilation, ABG showed resp. acidosis. Angie called 08/24 acidosis slowly improving continue BIPAP appreciate pulm and CCM input CT chest done, no acute findings continue duonebs, IV steroids poss seizure, has seizure disorder CT head negative EEG encephalopathy B12, TSH ok, RPR pending appreciate neuro input Valproic acid 40 Depakote dc on Keppra now Schizophrenia psych consult pending Heparin for DVT prophylaxis condition guarded appreciate consultants input D/W RN D/W Dr. Sanchez This patient was seen by myself and Dr. Sanchez, this note is written on her behalf. Problem Qualifiers (1) Respiratory failure: Qualified Code: J96.01 - Acute respiratory failure with hypoxia and hypercapnia (2) Hyperlipidemia: Qualified Code: E78.5 - Hyperlipidemia, unspecified hyperlipidemia type (3) HTN (hypertension): Qualified Code: I10 - Essential hypertension (4) UTI (urinary tract infection): Qualified Code: N39.0 - Urinary tract infection without hematuria, site unspecified (5) Schizophrenia: Qualified Code: F20.9 - Schizophrenia, unspecified type Ly Burton Aug 26, 2016 14:09
--- NOTE | 2016-08-26 17:05 | PD.CONS ---
Provisional Diagnosis Admission Date Aug 25, 2016 at 01:01 [place] I. 1. Schizophrenia, undifferentiated type Rule-out schizoaffective disorder 2. Rule-out component of delirium [place] II. Deferred History of Present Illness Service Psychiatry Consult Requested By Dr. Grace Reason for Consult Management of psychosis, h/o schizophrenia Primary Care Physician Marco Harrell M.D. HPI Mr. Berger is a 71-year-old male with a chart history of bipolar illness who presented initially on 08/24 from his care facility with altered mental status. Patient had episode of decreased responsiveness while in the hospital and a [facility] was called. Patient is presently admitted to the [facility]. Reviewing the electronic medical record, I note the patient was seen in consultation by Dr. Breaux in 02/2006 at which time he carried a diagnosis of BPAD , and Dr. Breaux alluded to a history of psychiatric hospitalizations here, although these must predate the EMR as I see no record of them. I have also reviewed documentation from patient's facility which gives the patient's diagnosis more recently a schizophrenia and lists his outpatient psychotropic says Seroquel 25 mg twice daily and Invega Sustenna 234 mg IM, although there is no indication of when this medication was last administered. I also note that he is prescribed Depakote 1500 mg at bedtime, although this is apparently for seizure. No Humphries act on the chart. Patient seen and examined. Chart reviewed. On my examination today, patient presents with somewhat garbled, rambling speech making the interview a little difficult. Thought process is circumstantial, tangential at times, and the patient seems most concerned with his dinner order. He seems to be in good spirits and describes no issues with low mood or elevated mood. He denies any AVH. He denies any SI or HI. No pj delusional material in evidence. Psychiatric interview is otherwise somewhat limited because of the patient's thought process. Past psychiatric history: Patient is likely an unreliable historian. He reports a history of schizophrenia. He reports previous inpatient psychiatric hospitalizations including at [facility] and [facility]. He denies a history of suicide attempts. Family history: Patient is unsure of his family psychiatric history. Chemical dependency history: The patient denies a history of abuse of drugs or alcohol. Social history: The patient reports that [facility] since [facility]. He was previously at [facility] he tells me. He is high school educated. He says that he played football in high school. He is single with no children. Review of Systems ROS Limitations: Poor Historian Except as stated in HPI: all other systems reviewed are Neg Past Family Social History Coded Allergies: No Known Allergies (Verified , 08/24/16) UNABLE TO CONFIRM ALLERGIES AT THIS TIME Past Medical History See electronic medical record Active Scripts Lisinopril 2.5 Mg Tab2.5 Mg PO DAILY #30 TAB Ref 0 Prov:Ulises Freeman MD 04/24/16 Glipizide (Glucotrol)5 Mg Tab5 Mg PO BID 30 Days Prov:Ulises Freeman MD 04/24/16 Reported Medications Albuterol Neb 2.5 Mg/3 Ml Neb2.5 Mg NEB TID NEB PRN (SHORTNESS OF BREATH) #60 NEBULE Ref 0 08/24/16 Paliperidone Palmitate Inj (Invega Sustenna Inj)234 Mg/1.5 Ml Pyv779 Mg IM Q28D #1 VIAL Ref 0 08/24/16 Quetiapine (Seroquel)25 Mg Tab25 Mg PO BID #60 TAB Ref 0 08/24/16 Docusate Sodium 100 Mg Rab912 Mg PO BID #60 CAP Ref 0 08/24/16 Insulin Degludec Inj (Tresiba Flextouch Pen Inj)300 unit/3 ML Pen1 Units SQ TID #15 ML Ref 0 08/24/16 Clonazepam (Klonopin)0.5 Mg Tab0.5 Mg PO BID #60 TAB Ref 0 08/24/16 Tamsulosin (Flomax)0.4 Mg Cap0.4 Mg PO HS #30 CAP Ref 0 04/19/16 Oxybutynin (Ditropan)5 Mg Tab5 Mg PO BID #60 TAB Ref 0 04/19/16 Divalproex ER (Depakote ER)500 Mg Taber1,500 Mg PO HS #60 TAB Ref 0 04/19/16 Amlodipine 5 Mg Tab5 Mg PO DAILY #30 TAB Ref 0 04/19/16 Discontinued Reported Medications Clonazepam (Klonopin)0.5 Mg Tab0.5 Mg PO BID #60 TAB Ref 0 08/24/16 Divalproex ER (Depakote ER)500 Mg Taber1,000 Mg PO DAILY #60 TAB Ref 0 08/24/16 Tamsulosin (Flomax)0.4 Mg Cap0.4 Mg PO HS #30 CAP Ref 0 08/24/16 Current Medications Medications (Trade) Dose Ordered Sig/Arpita Route Start Time Stop Time Status Last Admin (NS Flush) 2 ml UNSCH PRN IV FLUSH 08/24/16 11:45 08/26/16 08:58 (NS Flush) 2 ml BID IV FLUSH 08/24/16 21:00 08/26/16 08:58 (Tylenol) 650 mg Q4H PRN PO 08/24/16 12:00 (Zofran Inj) 4 mg Q6HR PRN IVP 08/24/16 12:00 (Heparin Inj) 5,000 units Q12HR SQ 08/24/16 21:00 08/26/16 09:05 (Narcan Inj) 0.4 mg UNSCH PRN IV 08/24/16 11:45 (Chelsea-Colace) 1 tab BID PO 08/24/16 21:00 08/25/16 20:04 (Milk Of Tal Liq) 30 ml Q12HR PRN PO 08/24/16 12:00 Sennosides 17.2 mg 17.2 mg Q12HR PRN PO 08/24/16 12:00 Ceftriaxone Sodium 1000 mg/ Sodium Chloride 100 ml @ 200 mls/hr Q24H IV 08/24/16 13:00 08/26/16 11:38 (Zithromax Inj/ NS 250 ml Inj) 250 ml @ 250 mls/hr Q24H IV 08/24/16 14:00 08/26/16 13:58 (KlonoPIN) 0.5 mg BID PO 08/24/16 22:45 Hold 08/25/16 20:04 (SEROquel) 25 mg BID PO 08/24/16 22:45 08/25/16 20:04 (Flomax) 0.4 mg HS PO 08/24/16 22:45 08/25/16 20:04 (D50w (Vial) Inj) 50 ml UNSCH PRN IV 08/25/16 11:00 (Glucagon Inj) 1 mg UNSCH PRN OTHER 08/25/16 11:00 (Ditropan) 5 mg BID PO 08/25/16 21:00 08/25/16 20:04 (Prinivil) 2.5 mg DAILY PO 08/26/16 09:00 (Pill Splitter) 1 ea UNSCH PRN OTHER 08/25/16 11:15 (SoluMEDROL INJ) 40 mg Q8H IV 08/25/16 13:00 08/26/16 11:38 (Ativan Inj) 1 mg Q2H PRN IV PUSH 08/25/16 16:30 Pantoprazole Sodium 40 mg 40 mg Q24H IV PUSH 08/25/16 18:00 08/25/16 18:00 (Keppra 1000 Mg Inj) 100 ml @ 100 mls/hr Q12H IV 08/26/16 07:00 08/26/16 06:26 (Norvasc) 10 mg DAILY PO 08/27/16 09:00 Family History See above Social History See above Patient's Strengths (min. 2) In a monitored setting. Verbally fluent. Physical Exam Physical examination completed by primary team. On my examination today, the patient appears to be in no acute physical distress. No abnormal motor movements noted. Laboratories and vital signs reviewed: Vital Signs Vital Signs Date Time Temp Pulse Resp B/P Pulse Ox O2 Delivery O2 Flow Rate FiO2 08/26/16 16:00 97.8 53 23 149/117 89 08/26/16 11:19 30 08/26/16 07:45 Nasal Cannula 1.00 I/O 08/25/16 08/25/16 08/26/16 08:00 16:00 00:00 Intake Total 755 ml 464 ml Output Total 1300 ml Balance 755 ml -836 ml Lab Results Item Value Date Time White Blood Count 4.1 TH/MM3 08/26/16318 Hemoglobin 11.9 GM/DL L 08/26/16318 Platelet Count 136 TH/MM3 L 08/26/16318 Sodium Level 140 MEQ/L 08/26/16318 Potassium Level 5.5 MEQ/L H # 08/26/16318 Chloride Level 101 MEQ/L 08/26/16318 Carbon Dioxide Level 38.8 MEQ/L H 08/26/16318 Blood Urea Nitrogen 33 MG/DL H 08/26/16318 Creatinine 1.17 MG/DL 08/26/16318 Aspartate Amino Transf (AST/SGOT) 10 U/L L 08/24/162120 Alanine Aminotransferase (ALT/SGPT) 13 U/L 08/24/162120 Alkaline Phosphatase 61 U/L 08/24/162120 Ammonia 65 MCMOL/L H 08/25/16 152 Thyroid Stimulating Hormone 3rd Gen 1.740 uIU/ML 08/25/16 152 Vitamin B12 Level 1775 PG/ML H 08/25/16 152 Valproic Acid (Depakene) Level 40 MCG/ML L 08/24/162120 Head CT was read as normal. EKG reveals background slowing consistent with encephalopathy. EKG sinus tach with QTc 409ms. Mental Status Examination Patient is in hospital gown. He is somewhat disheveled but maintaining basic hygiene. He is awake and alert and oriented to person, place and date and year but not the month which he gives as July. Focus and concentration seem fairly well-preserved and the patient is able to do the vigilance A task with no errors. No motor abnormalities noted. Speech is somewhat garbled and rambling but not particularly pressured. Language and fund of knowledge are perhaps mildly reduced. Memory seems perhaps fair on clinical exam. Mood is fairly good and affect is full and reactive. Thought process circumstantial, at times tangential. Associations somewhat loose. No pj delusions. Denies audiovisual hallucinations. Denies suicidal or homicidal ideation. Insight and judgment are likely chronically poor. Assessment & Plan Problem List: (1) Schizophrenia ICD Code: F20.9 Assessment & Plan This is a 71-year-old male with psychiatric history as detailed above who is presently voluntarily admitted to the [facility] following an episode of altered mental status. Psychiatry is consulted for management of psychosis. On my examination today, the patient denies any audiovisual hallucinations nor can I elicit any delusional material. His thought process is somewhat scattered, but this may represent his baseline or may be influenced by some degree of delirium or encephalopathy. I do not suspect a severe psychotic decompensation in this patient at this time. I do note that he is prescribed his Seroquel 25mg BID here, although he has only received a few doses secondary to sedation. It also appears that he is on a long-acting injectable antipsychotic, but it is not clear when this was last administered. --If patient is unable to receive scheduled Seroquel due to sedation, could consider replacing with less sedating Geodon 20mg PO BIDPC. --I will ask nursing staff to confirm date of last dose of Invega Sustenna. This agent is given monthly. In light of his issues with AMS on presentation along with decreased GFR, he might benefit from a decreased dose of this agent when it is next due. --Might be helpful to have sales representative metals from his facility come and evaluate him in-house to get a better sense of how far off of his cognitive/mental status baseline he is at this point. --No need for sitter from psych standpoint unless needed for behavioral redirection. I will ask psych C/L service to follow up after the weekend. Thank you very much for this consultation. Discharge Planning Per primary team. Problem Qualifiers (1) Schizophrenia: Qualified Code: F20.3 - Undifferentiated schizophrenia Fawad Salazar MD Aug 26, 2016 17:05
[2016-08-26] MEDS: PANTOPRAZOLE SODIUM 40 MG VIAL IV PUSH SCH (17:23)
--- NOTE | 2016-08-26 19:28 | HHI.PR ---
Review/Management Diagnosis 1. Encephalopathy, resolving. Possible etiology is metabolic encephalopathy/hyper ammoniemic encephalopathy, non-convulsive seizures. 2. Schizophrenia. 3. Bipolar disorder. 4. Acute respiratory failure. 5. Asthma/ chronic obstructive pulmonary disease. 6. Diabetes. Plan 1. Neuro checks q one hourly. 2. D/c Depakote,given the hyperammonemia 3. Keppra 1000 mg Q12 h. 4. Seizure precautions. 5. DVT prophylaxis. 6. Supportive measures replenish electrolyte derangement and control blood sugar. 7. GI prophylaxis. Diagnosis/Plan: Subjective Subjective Comments No reported seizure Some improvement in the neurologic status EEG revealed an encephalopathic pattern Active Medications Current Medications Medications (Trade) Dose Ordered Sig/Arpita Route Start Time Stop Time Status Last Admin (NS Flush) 2 ml UNSCH PRN IV FLUSH 08/24/16 11:45 08/26/16 08:58 (NS Flush) 2 ml BID IV FLUSH 08/24/16 21:00 08/26/16 08:58 (Tylenol) 650 mg Q4H PRN PO 08/24/16 12:00 (Zofran Inj) 4 mg Q6HR PRN IVP 08/24/16 12:00 (Heparin Inj) 5,000 units Q12HR SQ 08/24/16 21:00 08/26/16 09:05 (Narcan Inj) 0.4 mg UNSCH PRN IV 08/24/16 11:45 (Chelsea-Colace) 1 tab BID PO 08/24/16 21:00 08/25/16 20:04 (Milk Of Magnesia Liq) 30 ml Q12HR PRN PO 08/24/16 12:00 Sennosides 17.2 mg 17.2 mg Q12HR PRN PO 08/24/16 12:00 Ceftriaxone Sodium 1000 mg/ Sodium Chloride 100 ml @ 200 mls/hr Q24H IV 08/24/16 13:00 08/26/16 11:38 (Zithromax Inj/ NS 250 ml Inj) 250 ml @ 250 mls/hr Q24H IV 08/24/16 14:00 08/26/16 13:58 (KlonoPIN) 0.5 mg BID PO 08/24/16 22:45 Hold 08/25/16 20:04 (SEROquel) 25 mg BID PO 08/24/16 22:45 08/25/16 20:04 (Flomax) 0.4 mg HS PO 08/24/16 22:45 08/25/16 20:04 (D50w (Vial) Inj) 50 ml UNSCH PRN IV 08/25/16 11:00 (Glucagon Inj) 1 mg UNSCH PRN OTHER 08/25/16 11:00 (Ditropan) 5 mg BID PO 08/25/16 21:00 08/25/16 20:04 (Prinivil) 2.5 mg DAILY PO 08/26/16 09:00 Hold (Pill Splitter) 1 ea UNSCH PRN OTHER 08/25/16 11:15 (SoluMEDROL INJ) 40 mg Q8H IV 08/25/16 13:00 08/26/16 11:38 (Ativan Inj) 1 mg Q2H PRN IV PUSH 08/25/16 16:30 Pantoprazole Sodium 40 mg 40 mg Q24H IV PUSH 08/25/16 18:00 08/26/16 17:23 (Keppra 1000 Mg Inj) 100 ml @ 100 mls/hr Q12H IV 08/26/16 07:00 08/26/16 17:41 Amlodipine Besylate 10 mg 10 mg DAILY PO 08/27/16 09:00 (Sodium Bicarbonate 8.4% Inj/D5W 1000 ml Inj) 1,150 ml @ 75 mls/hr [id number] IV 08/26/16 20:00 (NovoLIN R INJ) 10 units ONCE ONCE IV PUSH 08/26/16 20:00 08/26/16 20:01 Dextrose 25 ml 25 ml ONCE ONCE IV 08/26/16 20:00 08/26/16 20:01 (Calcium Gluconate Inj/D5W 100 ml Inj) 120 ml @ 120 mls/hr ONCE ONCE IV 08/26/16 20:00 08/26/16 20:59 (Sodium Bicarbonate 8.4% Inj) 50 meq ONCE ONCE IV PUSH 08/26/16 19:30 08/26/16 19:31 Allergies Allergies Coded Allergies No Known Allergies (Verified08/24/16) Exam I&O / VS 08/25/16 08/25/16 08/26/16 14:59 22:59 06:59 Intake Total 464 ml 676 ml Output Total 1300 ml 400 ml Balance -836 ml 276 ml Intake Oral 355 ml IV Total 109 ml 676 ml Output Urine Total 1300 ml 400 ml # Voids 3 # Bowel Movements 0 0 Vital Signs Date Time Temp Pulse Resp B/P Pulse Ox O2 Delivery O2 Flow Rate FiO2 08/26/16 18:00 41 08/26/16 16:00 97.8 53 23 149/117 89 08/26/16 16:00 53 08/26/16 14:00 66 08/26/16 12:00 56 08/26/16 12:00 97.1 56 14 172/77 89 08/26/16 11:19 99 30 08/26/16 10:00 37 08/26/16 08:04 100 30 08/26/16 08:00 97.6 36 16 177/79 97 08/26/16 08:00 36 08/26/16 07:45 96 Nasal Cannula 1.00 08/26/16 07:15 99 Nasal Cannula 4.00 08/26/16 06:00 70 08/26/16 04:30 100 30 08/26/16 04:00 48 08/26/16 04:00 98.1 48 23 94 08/26/16 02:00 76 08/26/16 00:26 96 30 08/26/16 00:00 98.7 40 12 148/70 97 08/26/16 00:00 48 08/25/16 22:00 48 08/25/16 21:51 100 30 08/25/16 20:00 98.0 50 34 98 08/25/16 20:00 50 08/25/16 19:56 100 Nasal Cannula 3.00 Exam Comments IN GENERAL: Obese AA on BiPap been large in awake with slurred speech. HEAD, EYES, EARS, NOSE, AND THROAT: Atraumatic, normocephalic. Exophthalmic eyes. No gaze deviation and injected scale NECK: Supple without meningeal irritation. CHEST: Decreased breath sounds bilateral expiratory wheezes. HEART: Regular rate and rhythm. ABDOMEN: Soft, nontender, obese. EXTREMITIES: Mild edema bilateral extremities, moves all extremities. NEUROLOGIC: Awake, alert and dysarthric, less irritable. Oriented to person, time, not oriented to place, Follows commands. Moves extremities. No dysphasia. Moves extremities equally. Unable to assess motor sensory or cerebellar function due to lack of cooperation. Reflexes 1+ bilateral symmetrical. Plantar bilaterally downgoing. Objective Radiology Results Last 72 hours Impressions Chest X-Ray 08/26/16 0600 Signed Impressions: Service Date/Time: Friday, August 26, 2016 02:59 - CONCLUSION: Slight right lung base atelectasis and/or infiltrate and left midlung atelectasis. Ada Peña MD Chest CT 08/25/16 1233 Signed Impressions: Service Date/Time: Thursday, August 25, 2016 18:14 - CONCLUSION: 1. Tiny bilateral pleural effusions and bibasilar atelectasis. 2. Cardiomegaly. Alfredito Canada Jr., MD Head CT 08/25/16 0000 Signed Impressions: Service Date/Time: Thursday, August 25, 2016 18:08 - CONCLUSION: Normal examination. Alfredito Canada Jr., MD Chest X-Ray 08/25/16 0000 Signed Impressions: Service Date/Time: Thursday, August 25, 2016 14:47 - CONCLUSION: 1. Hypoinflation with resolving atelectatic changes in the right base. No confluent infiltrate. 2. Borderline prominent but well compensated heart. Uriel Solorio MD Chest X-Ray 08/24/16 0807 Signed Impressions: Service Date/Time: August 08:31 - CONCLUSION: Underinflated examination with bibasilar opacity. On the left the appearance favors atelectasis. At the right base it could represent atelectasis or consolidation. Good inspiratory formal PA and lateral views of the chest may help differentiate. Sanjay Goyal MD Micro and Labs Laboratory Tests Test 08/26/16 08/26/16 08/26/16 03:19 07:42 16:13 White Blood Count 4.1 Red Blood Count 4.24 Hemoglobin 11.9 Hematocrit 38.7 Mean Corpuscular Volume 91.4 Mean Corpuscular Hemoglobin 28.0 Mean Corpuscular Hemoglobin 30.7 Concent Red Cell Distribution Width 15.8 Platelet Count 136 Mean Platelet Volume 9.5 Neutrophils (%) (Auto) 72.9 Lymphocytes (%) (Auto) 23.8 Monocytes (%) (Auto) 3.0 Eosinophils (%) (Auto) 0.0 Basophils (%) (Auto) 0.3 Neutrophils # (Auto) 3.0 Lymphocytes # (Auto) 1.0 Monocytes # (Auto) 0.1 Eosinophils # (Auto) 0.0 Basophils # (Auto) 0.0 CBC Comment DIFF FINAL Differential Comment Sodium Level 140 Potassium Level 5.5 6.2 Chloride Level 101 Carbon Dioxide Level 38.8 Anion Gap 0 Blood Urea Nitrogen 33 Creatinine 1.17 Estimat Glomerular Filtration 75 Rate Random Glucose 181 Calcium Level 9.0 Blood Gas Puncture Site LT RADIAL Blood Gas Patient Temperature 98.6 Blood Gas HCO3 34 Blood Gas Base Excess 7.8 Blood Gas Oxygen Saturation 90 Arterial Blood pH 7.33 Arterial Blood Partial 66 Pressure CO2 Arterial Blood Partial 69 Pressure O2 Arterial Blood Oxygen Content 15.7 Arterial Blood 1.6 Carboxyhemoglobin Arterial Blood Methemoglobin 1.2 Blood Gas Hemoglobin 12.4 Oxygen Delivery Device NASAL CANNULA Blood Gas Liter Flow 1 Date/Time Procedure Status Source Growth 08/24/16 09:12 Urine Culture - Final Complete Urine Catheterized Urine 08/24/16 08:20 Aerobic Blood Culture - Preliminary Resulted Blood Peripheral NO GROWTH IN 2 DAYS 08/24/16 08:20 Anaerobic Blood Culture - Preliminary Resulted Blood Peripheral NO GROWTH IN 2 DAYS Clarita Guillaume MD Aug 26, 2016 19:28 Clarita Guillaume MD Aug 26, 2016 19:28 Blood Peripheral NO GROWTH IN 2 DAYS 08/24/16 08:20 Anaerobic Blood Culture - Preliminary Resulted Blood Peripheral NO GROWTH IN 2 DAYS Clarita Guillaume MD Aug 26, 2016 19:28
[2016-08-26] MEDS ORDERED: SODIUM BICARBONATE 8.4% INJ 50 MEQ/50 ML SYR IV PUSH ONE (19:30)
[2016-08-26] MEDS: TAMSULOSIN HCL 0.4 MG CAP PO SCH (19:40)
[2016-08-26] MEDS ORDERED: CALCIUM GLUCONATE INJ 2 GM in DEXTROSE 5% IN WATER 100ML INJ 100 ML IV ONE ×2 (20:00)
[2016-08-26] MEDS ORDERED: INSULIN HUMAN REGULAR 1,000 UNITS/10 ML VIAL IV PUSH ONE (20:00)
[2016-08-26] MEDS ORDERED: DEXTROSE 50% IN WATER 50 ML SYRINGE IV ONE (20:00)
[2016-08-26] MEDS ORDERED: SODIUM BICARBONATE 8.4% INJ 150 MEQ in DEXTROSE 5% IN WATE 1000ML INJ 1,000 ML IV SCH ×2 (20:00)
[2016-08-27] VITALS (17 sets, daily range): BP systolic 153–204; BP diastolic 71–104; PULSE 47–134; RESP 9–33; TEMP 97.6–98.4; O2SAT 93–100
[2016-08-27 00:29] LABS: ALKALINE PHOSPHATASE 60 U/L (45-117); ALT (GPT) 25 U/L (12-78); ANION GAP 6 MEQ/L (5-15); AST (GOT) 14 U/L (15-37); BICARBONATE 33.5 MEQ/L (21.0-32.0); BLOOD UREA NITROGEN 36 MG/DL (7-18); CHLORIDE 100 MEQ/L (98-107); GLOMERULAR FILTRATION RATE 57 ML/MIN (>89); MAGNESIUM 2.2 MG/DL (1.5-2.5); SODIUM (NA) 139 MEQ/L (136-145); TOTAL BILIRUBIN ADULT 0.2 MG/DL (0.2-1.0)
[2016-08-27] MEDS ORDERED: hydrALAZINE HCL 20 MG/ML VIAL IV PUSH PRN (03:30)
[2016-08-27] MEDS: RESP: ALBUTEROL 2.5 MG/IPRATROPIUM 0.5 MG NEB (SCH) NEB ×4 (03:37→20:15)
[2016-08-27] MEDS: methylPREDNISolone SOD SUCC 40 MG/1 ML VIAL IV SCH ×3 (03:50→19:58)
--- NOTE | 2016-08-27 04:34 | RADRPT ---
EXAM DATE/TIME: 08/27/2016 03:06 [place] COMPARISON: CHEST SINGLE AP, August 26, 2016, 2:59. INDICATIONS : Shortness of breath, possible pulmonary disease. MEDICAL HISTORY : Cardiovascular disease. Hypertension Diabetes mellitus type II. Renal Failure SURGICAL HISTORY : None. ENCOUNTER: Subsequent ACUITY: 3 days PAIN SCORE: 0/10 LOCATION: Bilateral chest FINDINGS: There is no change in bilateral mid lung atelectasis. Mild right lung base atelectasis and/or infiltr ate is seen. Heart and mediastinum are unremarkable for technique. CONCLUSION: No appreciable change. Ada Peña MD on August 27, 2016 at 4:32 Board Certified Radiologist. This report was verified electronically.
[2016-08-27] MEDS: levETIRAcetam 1000 MG INJ 100 ML IV SCH ×2 (05:27→17:17)
[2016-08-27] MEDS: INSULIN ASPART SUPPLEMENTAL SCALE SQ SCH ×4 (06:34→19:59)
[2016-08-27] MEDS: OXYBUTYNIN CHLORIDE 5 MG TAB PO SCH ×2 (08:16→19:59)
[2016-08-27] MEDS: HEPARIN SODIUM - SQ 10,000 UNITS/ML VIAL SQ SCH ×2 (08:16→20:00)
[2016-08-27] MEDS: QUEtiapine FUMARATE 25 MG TAB PO SCH ×2 (08:16→19:59)
[2016-08-27] MEDS: DOCUSATE SODIUM 50 MG/SENNA 8.6 MG TAB PO SCH ×2 (08:17→19:59)
[2016-08-27] MEDS: SODIUM CHLORIDE 0.9% FLUSH 10 ML FLUSH IV FLUSH SCH ×2 (08:17→19:58)
[2016-08-27] MEDS: SODIUM CHLOR 0.9% 1000 ML INJ 1,000 ML IV SCH (09:30)
--- NOTE | 2016-08-27 09:33 | HHI.CCPN ---
Subjective Remarks/Hospital Course This is a 71-year-old male with past medical history history significant for seizure disorder, type 2 diabetes, asthma/COPD, anxiety, depression, schizophrenia, bipolar disorder, morbid obesity who was brought to the emergency department yesterday 08/24/16 for evaluation of lethargy and altered mental status. [facility]ation secondary to sepsis (due to possible UTI and pneumonia) and hypercapnic respiratory failure. ABG on admission showed a pH of 7.23 PCO2 of 97 and PO2 of 131. Patient was placed on scheduled DuoNeb, IV Solu-Medrol and antibiotics Rocephin and azithromycin. BiPAP was initiated and pulmonology was consulted. Depakote was continued. Yesterday the patient became unresponsive and a Halicat was called. His altered mentation probably secondary to worsening CO2 retention after initial improvement, there was also a question of subclinical seizures. PH was 7.29 and PCO2 82, on BiPAP. EEG done , result pending. Critical care medicine was consulted for Acute hypercapnic respiratory failure and metabolic encephalopathy. I evaluated the patient in the ICU. He is currently on BiPAP moderate distress but more awake. CT head and EEG report are pending at this time SUBJ 08/26: Patient has had been taken off BiPAP. Somnolent but wakes up easily refuses to follow commands as underlying psychosis. ABG shows pH 7.33 and PCO2 of 66 which is improved from yesterday. CT chest did not reveal any acute infiltrates CT head normal. EEG shows no seizure activity possible encephalopathy 08/27: Currently breathing comfortably on BiPAP. Creatinine is slightly increased to 1.47. Eating breakfast. No resp difficulty Objective Vital Signs Date Time Temp Pulse Resp B/P Pulse Ox O2 Delivery O2 Flow Rate FiO2 08/27/16 09:11 96 Nasal Cannula 3.00 08/27/16 06:00 70 08/27/16 04:33 30 08/27/16 04:00 97.9 16 159/71 Intake and Output 08/26/16 08/26/16 08/27/16 08:00 16:00 00:00 Intake Total 676 ml 869 ml 640 ml Output Total 400 ml 450 ml 600 ml Balance 276 ml 419 ml 40 ml Result Diagram: 08/26/16 0319 08/26/16 2332 Imaging CXR bibasilar atelectasis Objective Remarks GENERAL: Awake breathing comfortably SKIN: Warm/dry. HEAD: Atraumatic. Normocephalic. EYES: Pupils equal and round. No scleral icterus. No injection or drainage. ENT: No nasal bleeding or discharge. NECK: Trachea midline. No JVD. CARDIOVASCULAR: Regular rate and rhythm, bradycardic during sleep. No murmur appreciated. RESPIRATORY: Bilateral minimal scattered wheezes and rhonchi GASTROINTESTINAL: Abdomen soft, non-tender, distended and obese MUSCULOSKELETAL: No obvious deformities. No clubbing. No cyanosis. No edema. NEUROLOGICAL: Awake alert somewhat disorganized speech. No focal deficits Urinary Catheter: Yes Assessment to: Continue A/P Assessment and Plan NEURO: Metabolic encephalopathy CO2 narcosis Possible subclinical seizures History of seizure disorder Schizophrenia, bipolar disorder, depression -Monitor for seizures, Ativan when necessary for seizure control -Continue Depakote. Keppra added by Dr. Guillaume (Neurology) -EEG negative for sz. CT head normal -Continue Seroquel and hold clonazepam -Psych consulted for psychosis-appreciate input RESP: Acute hypercapnic respiratory failure Asthma/COPD -BiPAP PRN and nocturnal -DuoNeb every 6 hours scheduled. Continue IV Solu-Medrol 40 mg every 8 hours -Pulmonary Dr. Dodson -IV antibiotics Rocephin and Zithromax -CT chest pr Dr. Dodson- negative for acute infiltrates CV: -Normal saline IV fluids 50 ml per hour GI: -ADA diet. IV protonix : Acute kidney injury Hyperkalemia -Monitor renal function closely. Creatinine increased to 1.47 yesterday -Hyperkalemia treated improving -CMP pending today ID: -Continue Rocephin and azithromycin for now -Follow-up on cultures negative to date HEME: -Monitor CBC, CMP, coags ENDO: Type 2 diabetes -Sliding-scale insulin -Electrolyte replacement protocol PROPH: -Bilateral lower extremity SCDs. Lovenox 40 mg subcutaneous daily. Protonix 40 mg IV daily LINES: -Utilize peripheral IVs, central line if needed Level 2 PT up to chair today CCM will sign off. Re consult if needed Daysi Grace MD Aug 27, 2016 09:33
[2016-08-27 10:50] LABS: ANION GAP 4 MEQ/L (5-15); AST (GOT) 15 U/L (15-37); BICARBONATE 35.2 MEQ/L (21.0-32.0); BLOOD UREA NITROGEN 39 MG/DL (7-18); CHLORIDE 100 MEQ/L (98-107); GLOMERULAR FILTRATION RATE 69 ML/MIN (>89); POTASSIUM 4.7 MEQ/L (3.5-5.1); SODIUM (NA) 139 MEQ/L (136-145)
[2016-08-27 10:51] LABS: ALT (GPT) 24 U/L (12-78)
[2016-08-27 10:53] LABS: ALKALINE PHOSPHATASE 63 U/L (45-117); TOTAL BILIRUBIN ADULT 0.3 MG/DL (0.2-1.0)
--- NOTE | 2016-08-27 12:42 | HHI.PR ---
Subjective Subjective Remarks off bipap now awake, oriented to self and place per nursing, at times agitated tries to get out of bed taking PO now no fever no seizures observed SR now, HR 90s BP uncontrolled, 190s Review of Systems Constitutional Constitutional Remarks unable to obtain ROS Vitals/Results Intake & Output 08/26/16 08/26/16 08/27/16 15:00 23:00 07:00 Intake Total 869 ml 640 ml 680 ml Output Total 450 ml 600 ml 750 ml Balance 419 ml 40 ml -70 ml Intake Oral 240 ml 120 ml IV Total 869 ml 400 ml 560 ml Output Urine Total 450 ml 600 ml 750 ml # Bowel Movements 0 0 0 Vital Signs Vital Signs Date Time Temp Pulse Resp B/P Pulse Ox O2 Delivery O2 Flow Rate FiO2 08/27/16 12:00 134 08/27/16 12:00 97.7 134 33 194/104 94 08/27/16 10:00 95 08/27/16 09:11 96 Nasal Cannula 3.00 08/27/16 08:00 98.4 79 25 190/86 95 08/27/16 08:00 79 08/27/16 07:00 94 Nasal Cannula 4.00 08/27/16 06:00 70 08/27/16 04:33 98 30 08/27/16 04:00 47 08/27/16 04:00 97.9 47 16 159/71 96 08/27/16 02:00 64 08/27/16 01:05 97 30 08/27/16 00:00 98.1 47 9 204/102 93 08/27/16 00:00 47 08/26/16 22:04 96 Nasal Cannula 3.00 08/26/16 22:01 98 30 08/26/16 22:00 85 08/26/16 20:00 98.0 41 30 190/88 95 08/26/16 20:00 41 08/26/16 19:00 92 Nasal Cannula 4.00 08/26/16 18:00 41 08/26/16 16:00 97.8 53 23 149/117 89 08/26/16 16:00 53 08/26/16 14:00 66 CBC/BMP: 08/26/16 0319 08/27/16 1024 Lab Results Laboratory Tests Test 6/3/17 6/3/17 6/4/17 16:13 23:32 10:24 Potassium Level 6.2 MEQ/L 5.0 MEQ/L 4.7 MEQ/L Sodium Level 139 MEQ/L 139 MEQ/L Chloride Level 100 MEQ/L 100 MEQ/L Carbon Dioxide Level 33.5 MEQ/L 35.2 MEQ/L Anion Gap 6 MEQ/L 4 MEQ/L Blood Urea Nitrogen 36 MG/DL 39 MG/DL Creatinine 1.47 MG/DL 1.25 MG/DL Estimat Glomerular Filtration 57 ML/MIN 69 ML/MIN Rate Random Glucose 304 MG/DL 240 MG/DL Calcium Level 9.5 MG/DL 9.6 MG/DL Magnesium Level 2.2 MG/DL Total Bilirubin 0.2 MG/DL 0.3 MG/DL Aspartate Amino Transf 14 U/L 15 U/L (AST/SGOT) Alanine Aminotransferase 25 U/L 24 U/L (ALT/SGPT) Alkaline Phosphatase 60 U/L 63 U/L Total Protein 7.0 GM/DL 7.1 GM/DL Albumin 2.5 GM/DL 2.7 GM/DL Ammonia 31 MCMOL/L Physical Exam General General Appearance: Well Developed, Well Nourished, Obese Eyes Eye Exam: Pupils Equal Ears & Nose Ears & Nose Exam: Nasal Mucosa [place] Throat Throat Exam: Oral Mucosa [place] & Moist Neck Neck Exam: Neck Supple, Trachea Midline Pulmonary Resp Exam: Decreased Bases Resp Remarks exp. wheeze Cardiology CV Exam: Regular Gastrointestinal/Abdomen GI Exam: Soft, Non-Tender, Bowel Sounds Present, Non-Distended Musculoskeletal MS Exam: Joints Intact Integumentary Skin Exam: Warm Extremeties Extremities Exam: Pedal Pulses Palpable, Trace Edema Neurologic Neuro Exam: Alert, Awake, Speech Clear, Moving All Extremities, No Focal Deficits Neuro Remarks lethargic VTE Prophylaxis VTE Prophylaxis Device: SCDs Assessment/Plan Problem List: (1) Respiratory failure (2) Hyperlipidemia (3) Encephalopathy (4) HTN (hypertension) (5) VENKAT (acute kidney injury) (6) UTI (urinary tract infection) (7) Hyperkalemia (8) SIRS (systemic inflammatory response syndrome) (9) Schizophrenia (10) Seizure disorder (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 mental status ? poss. encephalopathy, SIRS with UTI, poss. PNA continue abx, follow urine cultures, negative so far CXR ? pna ammonia elevated, now coming down improving, better now. At times agitated. continue with diet VENKAT renal function better continue IVF Resp. failure obtunded ? seizure, resp. failure, poss hypoventilation, ABG showed resp. acidosis. Angie called 08/24 acidosis slowly improving BIPAP at HS, now on oxygen via [place] appreciate pulm and CCM input CCM signed off CT chest done, no acute findings continue duonebs, IV steroids overall improving, CO coming down keep in ICU for now poss seizure, has seizure disorder CT head negative EEG encephalopathy B12, TSH ok, RPR pending appreciate neuro input Valproic acid 40 Depakote dc -elevated ammonia ammonia coming down on Keppra now BP elevated started Lopressor and Norvasc continue PRN meds Schizophrenia psych input appreciated-recommendations noted. continue Seroquel recommends to feb. Invega dose due to renal dysfunction when he goes back to facility. Heparin for DVT prophylaxis overall improving, keep in ICU today appreciate consultants input PT/ST eval Labs in am D/W RN D/W Dr. Sanchez This patient was seen by myself and Dr. Sanchez, this note is written on her behalf. Problem Qualifiers (1) Respiratory failure: Qualified Code: J96.01 - Acute respiratory failure with hypoxia and hypercapnia (2) Hyperlipidemia: Qualified Code: E78.5 - Hyperlipidemia, unspecified hyperlipidemia type (3) HTN (hypertension): Qualified Code: I10 - Essential hypertension (4) UTI (urinary tract infection): Qualified Code: N39.0 - Urinary tract infection without hematuria, site unspecified (5) Schizophrenia: Qualified Code: F20.3 - Undifferentiated schizophrenia Ly Burton Aug 27, 2016 12:42
[2016-08-27] MEDS: cefTRIAXone INJ 1,000 MG in SODIUM CHLORIDE 0.9% INJ 100 ML IV SCH (13:51)
[2016-08-27] MEDS: AZITHROMYCIN INJ 500 MG in SODIUM CHLOR 0.9% 250 ML INJ 250 ML IV SCH (13:51)
[2016-08-27] MEDS: METOPROLOL TARTRATE 25 MG TAB PO SCH ×3 (13:54→20:00)
--- NOTE | 2016-08-27 15:38 | HHI.PR ---
Subjective Remarks Awake and talking. taking his diet well. ABG better. No Seizure.Output was good. Objective Vital Signs Date Time Temp Pulse Resp B/P Pulse Ox O2 Delivery O2 Flow Rate FiO2 08/27/16 14:00 76 08/27/16 12:00 134 08/27/16 12:00 97.7 134 33 194/104 94 08/27/16 10:00 95 08/27/16 09:11 96 Nasal Cannula 3.00 08/27/16 08:00 98.4 79 25 190/86 95 08/27/16 08:00 79 08/27/16 07:00 94 Nasal Cannula 4.00 08/27/16 06:00 70 08/27/16 04:33 98 30 08/27/16 04:00 47 08/27/16 04:00 97.9 47 16 159/71 96 08/27/16 02:00 64 08/27/16 01:05 97 30 08/27/16 00:00 98.1 47 9 204/102 93 08/27/16 00:00 47 08/26/16 22:04 96 Nasal Cannula 3.00 08/26/16 22:01 98 30 08/26/16 22:00 85 08/26/16 20:00 98.0 41 30 190/88 95 08/26/16 20:00 41 08/26/16 19:00 92 Nasal Cannula 4.00 08/26/16 18:00 41 08/26/16 16:00 97.8 53 23 149/117 89 08/26/16 16:00 53 I/O 08/26/16 08/26/16 08/26/16 08/27/16 08/27/16 08/27/16 07:00 15:00 23:00 07:00 15:00 23:00 Intake Total 676 ml 869 ml 640 ml 680 ml 440 ml Output Total 400 ml 450 ml 600 ml 750 ml 1150 ml Balance 276 ml 419 ml 40 ml -70 ml -710 ml Intake Oral 240 ml 120 ml 150 ml IV Total 676 ml 869 ml 400 ml 560 ml 290 ml Output Urine Total 400 ml 450 ml 600 ml 750 ml 1150 ml # Voids 3 # Bowel Movements 0 0 0 0 1 Result Diagram: 08/26/16 0319 08/27/16 1024 Objective Remarks GENERAL: This is a moderately obese elderly man who is alert. He is awake HEAD, EYES, EARS, NOSE, THROAT: Head normocephalic. The pupils are reactive. The sclerae were clear. Throat has no inflammation. NECK: The neck is supple without venous distention. No thyromegaly. CHEST: Decreased breath sounds with bilateral expiratory wheezes, prolonged expirations.Occ Crackles. HEART: Heart sounds are regular. S1 and S2. No murmur. No S3. ABDOMEN: Abdomen is soft obese without masses. No organomegaly or tenderness. EXTREMITIES: No edema. Peripheral pulses are well-felt. NEUROLOGIC: Reflexes are not elicited. The patient is alert . Talking now. Babinski is negative. Cranial nerves not tested. SKIN: Skin was dry and warm. Assessment and Plan Assessment and Plan IMPRESSION: 1. Hypercapnic respiratory failure. 2. COPD with asthma and chronic bronchitis. 3. History of seizure disorder. 4. History of bipolar disorder. 5. Diabetes mellitus type 2. 6. Hypertension. 7. Possible aspiration pneumonia. Plan : 1. O2 at 3L 2. Duonebs qid with nebulizer 3. Cont Antibiotics. 4. Up in chair as tolerated 5. Seizure precautions. 6. CBC,BMP in am. 7. solumedrol 40 mg IV q12h. Stephan Joshua MD Aug 27, 2016 15:38
[2016-08-27] MEDS: PANTOPRAZOLE SODIUM 40 MG VIAL IV PUSH SCH (17:17)
--- NOTE | 2016-08-27 17:17 | HHI.PR ---
Review/Management Diagnosis 1. Encephalopathy, resolving. Possible etiology is metabolic encephalopathy/hyper ammoniemic encephalopathy, non-convulsive seizures. 2.Schizophrenia. 3.Bipolar disorder. 4.Acute respiratory failure. 5.Asthma/ chronic obstructive pulmonary disease. 6.Diabetes. Plan 1. Neuro checks q one hourly. 2. D/c Depakote,given the hyperammonemia 3. Keppra 1000 mg Q12 h. 4. Seizure precautions. 5. DVT prophylaxis. 6. Supportive measures replenish electrolyte derangement and control blood sugar. 7. GI prophylaxis. Diagnosis/Plan: Subjective Subjective Comments No reported seizures Ammonia level is wnl Stable neurologically No new complaint Active Medications Current Medications Medications (Trade) Dose Ordered Sig/Arpita Route Start Time Stop Time Status Last Admin (NS Flush) 2 ml UNSCH PRN IV FLUSH 08/24/16 11:45 08/26/16 08:58 (NS Flush) 2 ml BID IV FLUSH 08/24/16 21:00 08/27/16 08:17 (Tylenol) 650 mg Q4H PRN PO 08/24/16 12:00 (Zofran Inj) 4 mg Q6HR PRN IVP 08/24/16 12:00 (Heparin Inj) 5,000 units Q12HR SQ 08/24/16 21:00 08/27/16 08:16 (Narcan Inj) 0.4 mg UNSCH PRN IV 08/24/16 11:45 (Chelsea-Colace) 1 tab BID PO 08/24/16 21:00 08/27/16 08:17 (Milk Of Magnesia Liq) 30 ml Q12HR PRN PO 08/24/16 12:00 Sennosides 17.2 mg 17.2 mg Q12HR PRN PO 08/24/16 12:00 Ceftriaxone Sodium 1000 mg/ Sodium Chloride 100 ml @ 200 mls/hr Q24H IV 08/24/16 13:00 08/27/16 13:51 (Zithromax Inj/ NS 250 ml Inj) 250 ml @ 250 mls/hr Q24H IV 08/24/16 14:00 08/27/16 13:51 (KlonoPIN) 0.5 mg BID PO 08/24/16 22:45 Hold 08/25/16 20:04 (SEROquel) 25 mg BID PO 08/24/16 22:45 6/4/17 08:16 (Flomax) 0.4 mg HS PO 08/24/16 22:45 08/26/16 19:40 (D50w (Vial) Inj) 50 ml UNSCH PRN IV 08/25/16 11:00 (Glucagon Inj) 1 mg UNSCH PRN OTHER 08/25/16 11:00 (Ditropan) 5 mg BID PO 08/25/16 21:00 08/27/16 08:16 (Prinivil) 2.5 mg DAILY PO 08/26/16 09:00 Hold (Pill Splitter) 1 ea UNSCH PRN OTHER 08/25/16 11:15 (SoluMEDROL INJ) 40 mg Q8H IV 08/25/16 13:00 08/27/16 13:51 (Ativan Inj) 1 mg Q2H PRN IV PUSH 08/25/16 16:30 Pantoprazole Sodium 40 mg 40 mg Q24H IV PUSH 08/25/16 18:00 08/26/16 17:23 (Keppra 1000 Mg Inj) 100 ml @ 100 mls/hr Q12H IV 08/26/16 07:00 08/27/16 05:27 (Norvasc) 10 mg DAILY PO 08/27/16 09:00 08/27/16 08:16 Hydralazine HCl 20 mg 20 mg Q4H PRN IV PUSH 08/27/16 03:30 08/27/16 03:50 (NS 1000 ml Inj) 1,000 ml @ 50 mls/hr Q20H IV 08/27/16 09:30 08/27/16 09:30 (Lopressor) 25 mg Q12HR PO 08/27/16 13:30 08/27/16 13:54 Allergies Allergies Coded Allergies No Known Allergies (Verified08/24/16) Exam I&O / VS 08/26/16 08/26/16 08/27/16 15:00 23:00 07:00 Intake Total 869 ml 640 ml 680 ml Output Total 450 ml 600 ml 750 ml Balance 419 ml 40 ml -70 ml Intake Oral 240 ml 120 ml IV Total 869 ml 400 ml 560 ml Output Urine Total 450 ml 600 ml 750 ml # Bowel Movements 0 0 0 Vital Signs Date Time Temp Pulse Resp B/P Pulse Ox O2 Delivery O2 Flow Rate FiO2 08/27/16 14:00 76 08/27/16 12:00 134 08/27/16 12:00 97.7 134 33 194/104 94 08/27/16 10:00 95 08/27/16 09:11 96 Nasal Cannula 3.00 08/27/16 08:00 98.4 79 25 190/86 95 08/27/16 08:00 79 08/27/16 07:00 94 Nasal Cannula 4.00 08/27/16 06:00 70 08/27/16 04:33 98 30 08/27/16 04:00 47 08/27/16 04:00 97.9 47 16 159/71 96 08/27/16 02:00 64 08/27/16 01:05 97 30 08/27/16 00:00 98.1 47 9 204/102 93 08/27/16 00:00 47 08/26/16 22:04 96 Nasal Cannula 3.00 08/26/16 22:01 98 30 08/26/16 22:00 85 08/26/16 20:00 98.0 41 30 190/88 95 08/26/16 20:00 41 08/26/16 19:00 92 Nasal Cannula 4.00 08/26/16 18:00 41 Exam Comments IN GENERAL: Obese AA male, in mild distress, with slurred speech. HEAD, EYES, EARS, NOSE, AND THROAT: Atraumatic, normocephalic. Exophthalmic eyes. No gaze deviation and injected scale NECK: Supple without meningeal irritation. CHEST: Decreased breath sounds bilateral expiratory wheezes. HEART: Regular rate and rhythm. ABDOMEN: Soft, nontender, obese. EXTREMITIES: Mild edema bilateral extremities, moves all extremities. NEUROLOGIC: Awake, alert and dysarthric, oriented to person, time, not to place , Follows commands. Moves extremities. No dysphasia. Moves extremities equally. Unable to assess motor sensory or cerebellar function due to lack of cooperation. Reflexes 1+ bilateral symmetrical. Plantar bilaterally downgoing. Objective Radiology Results Last 72 hours Impressions Chest X-Ray 08/27/16599 Signed Impressions: Service Date/Time: Saturday, August 27, 2016 03:06 - CONCLUSION: No appreciable change. Ada Peña MD Chest X-Ray 08/26/16599 Signed Impressions: Service Date/Time: Friday, August 26, 2016 02:59 - CONCLUSION: Slight right lung base atelectasis and/or infiltrate and left midlung atelectasis. K. Valdemar Peña MD Chest CT 08/25/16 1233 Signed Impressions: Service Date/Time: Thursday, August 25, 2016 18:14 - CONCLUSION: 1. Tiny bilateral pleural effusions and bibasilar atelectasis. 2. Cardiomegaly. Alfredito Canada Jr., MD Head CT 08/25/16 0000 Signed Impressions: Service Date/Time: Thursday, August 25, 2016 18:08 - CONCLUSION: Normal examination. Alfredito Canada Jr., MD Chest X-Ray 08/25/16 0000 Signed Impressions: Service Date/Time: Thursday, August 25, 2016 14:47 - CONCLUSION: 1. Hypoinflation with resolving atelectatic changes in the right base. No confluent infiltrate. 2. Borderline prominent but well compensated heart. rUiel Solorio MD Micro and Labs Laboratory Tests Test 08/26/16 08/27/16 23:32 10:24 Sodium Level 139 139 Potassium Level 5.0 4.7 Chloride Level 100 100 Carbon Dioxide Level 33.5 35.2 Anion Gap 6 4 Blood Urea Nitrogen 36 39 Creatinine 1.47 1.25 Estimat Glomerular Filtration 57 69 Rate Random Glucose 304 240 Calcium Level 9.5 9.6 Magnesium Level 2.2 Total Bilirubin 0.2 0.3 Aspartate Amino Transf 14 15 (AST/SGOT) Alanine Aminotransferase 25 24 (ALT/SGPT) Alkaline Phosphatase 60 63 Total Protein 7.0 7.1 Albumin 2.5 2.7 Ammonia 31 Date/Time Procedure Status Source Growth 08/24/16 09:12 Urine Culture - Final Complete Urine Catheterized Urine 08/24/16 08:20 Aerobic Blood Culture - Preliminary Resulted Blood Peripheral NO GROWTH IN 3 DAYS 08/24/16 08:20 Anaerobic Blood Culture - Preliminary Resulted Blood Peripheral NO GROWTH IN 3 DAYS Clarita Guillaume MD Aug 27, 2016 17:17 Clarita Guillaume MD Aug 27, 2016 17:17
[2016-08-27] MEDS: TAMSULOSIN HCL 0.4 MG CAP PO SCH (19:59)
[2016-08-28] VITALS (19 sets, daily range): BP systolic 136–190; BP diastolic 73–95; PULSE 41–91; RESP 15–20; TEMP 98–98.5; O2SAT 95–100
[2016-08-28] MEDS: RESP: ALBUTEROL 2.5 MG/IPRATROPIUM 0.5 MG NEB (SCH) NEB ×3 (03:17→14:45)
[2016-08-28 05:08] LABS: AUTOMATED NEUTROPHIL # 3.7 TH/MM3 (1.8-7.7); BASOPHIL % 0.3 % (0.0-2.0); HEMATOCRIT 38.6 % (39.0-51.0); HEMO FLAGS DIFF FINAL; LYMPH % 24.1 % (9.0-44.0); LYMPHOCYTE # 1.3 TH/MM3 (1.0-4.8); MEAN CELL VOLUME 88.3 FL (80.0-100.0); MEAN CORPUSCULAR HEMOGLOBIN 28.8 PG (27.0-34.0); MEAN CORPUSCULAR HGB CONC 32.6 % (32.0-36.0); MONO % 7.7 % (0.0-8.0); NEUT % 67.9 % (16.0-70.0); PLATELET COUNT 150 TH/MM3 (150-450); RED BLOOD COUNT 4.37 MIL/MM3 (4.50-5.90); RED CELL DISTRIBUTION WIDTH 16.6 % (11.6-17.2); WHITE BLOOD COUNT 5.5 TH/MM3 (4.0-11.0)
[2016-08-28 05:21] LABS: ANION GAP 6 MEQ/L (5-15); AST (GOT) 13 U/L (15-37); BICARBONATE 33.6 MEQ/L (21.0-32.0); BLOOD UREA NITROGEN 37 MG/DL (7-18); CHLORIDE 102 MEQ/L (98-107); GLOMERULAR FILTRATION RATE 74 ML/MIN (>89); POTASSIUM 5.1 MEQ/L (3.5-5.1); SODIUM (NA) 142 MEQ/L (136-145)
[2016-08-28 05:22] LABS: ALT (GPT) 23 U/L (12-78)
[2016-08-28 05:24] LABS: ALKALINE PHOSPHATASE 59 U/L (45-117); TOTAL BILIRUBIN ADULT 0.2 MG/DL (0.2-1.0)
[2016-08-28] MEDS: levETIRAcetam 1000 MG INJ 100 ML IV SCH ×2 (05:25→18:01)
[2016-08-28] MEDS: methylPREDNISolone SOD SUCC 40 MG/1 ML VIAL IV SCH (05:25)
[2016-08-28] MEDS: SODIUM CHLOR 0.9% 1000 ML INJ 1,000 ML IV SCH (05:25)
[2016-08-28] MEDS: INSULIN ASPART SUPPLEMENTAL SCALE SQ SCH ×4 (06:08→20:39)
[2016-08-28] MEDS: QUEtiapine FUMARATE 25 MG TAB PO SCH ×2 (08:41→21:57)
[2016-08-28] MEDS: OXYBUTYNIN CHLORIDE 5 MG TAB PO SCH ×2 (08:41→21:57)
[2016-08-28] MEDS: HEPARIN SODIUM - SQ 10,000 UNITS/ML VIAL SQ SCH ×2 (08:41→21:56)
[2016-08-28] MEDS: METOPROLOL TARTRATE 25 MG TAB PO SCH (08:41)
[2016-08-28] MEDS: DOCUSATE SODIUM 50 MG/SENNA 8.6 MG TAB PO SCH ×2 (09:00→21:56)
[2016-08-28] MEDS: SODIUM CHLORIDE 0.9% FLUSH 10 ML FLUSH IV FLUSH SCH ×2 (09:00→21:57)
--- NOTE | 2016-08-28 10:12 | HHI.PR ---
Subjective Subjective Remarks awake, cooperative, oriented to self, others place no cp no sob eating very well no seizures observed used BIPAP at HS, now on NC 3L, sats 98 now awake, oriented to self and place per nursing, at times agitated tries to get out of bed HR noted 40s BP up 190s Review of Systems Constitutional Constitutional Remarks 12 point ROS limited Vitals/Results Intake & Output 08/27/16 08/27/16 08/28/16 15:00 23:00 07:00 Intake Total 440 ml 790 ml 485 ml Output Total 1150 ml 700 ml 600 ml Balance -710 ml 90 ml -115 ml Intake Oral 150 ml 240 ml 120 ml IV Total 290 ml 550 ml 365 ml Output Urine Total 1150 ml 700 ml 600 ml # Bowel Movements 1 0 0 Vital Signs Vital Signs Date Time Temp Pulse Resp B/P Pulse Ox O2 Delivery O2 Flow Rate FiO2 08/28/16 08:30 98 Nasal Cannula 2.00 08/28/16 07:30 98 Nasal Cannula 3.00 08/28/16 06:00 47 08/28/16 04:00 98.0 41 15 190/95 100 08/28/16 04:00 41 08/28/16 03:20 100 30 08/28/16 03:00 41 08/28/16 02:00 47 08/28/16 00:39 100 30 08/28/16 00:00 55 08/28/16 00:00 98.2 55 19 150/82 99 08/27/16 22:26 100 30 08/27/16 22:00 52 08/27/16 20:15 98 Nasal Cannula 3.00 08/27/16 20:00 97.8 59 20 161/74 98 08/27/16 20:00 59 08/27/16 19:00 98 Nasal Cannula 4.00 08/27/16 18:00 61 08/27/16 16:00 97.6 20 153/81 94 08/27/16 16:00 57 08/27/16 14:00 76 08/27/16 12:00 134 08/27/16 12:00 97.7 134 33 194/104 94 CBC/BMP: 08/28/16 0321 08/28/16 0321 Lab Results Laboratory Tests Test 08/27/16 08/28/16 10:24 03:21 Sodium Level 139 MEQ/L 142 MEQ/L Potassium Level 4.7 MEQ/L 5.1 MEQ/L Chloride Level 100 MEQ/L 102 MEQ/L Carbon Dioxide Level 35.2 MEQ/L 33.6 MEQ/L Anion Gap 4 MEQ/L 6 MEQ/L Blood Urea Nitrogen 39 MG/DL 37 MG/DL Creatinine 1.25 MG/DL 1.18 MG/DL Estimat Glomerular Filtration 69 ML/MIN 74 ML/MIN Rate Random Glucose 240 MG/DL 232 MG/DL Calcium Level 9.6 MG/DL 9.1 MG/DL Total Bilirubin 0.3 MG/DL 0.2 MG/DL Aspartate Amino Transf 15 U/L 13 U/L (AST/SGOT) Alanine Aminotransferase 24 U/L 23 U/L (ALT/SGPT) Alkaline Phosphatase 63 U/L 59 U/L Ammonia 31 MCMOL/L Total Protein 7.1 GM/DL 6.7 GM/DL Albumin 2.7 GM/DL 2.5 GM/DL White Blood Count 5.5 TH/MM3 Red Blood Count 4.37 MIL/MM3 Hemoglobin 12.6 GM/DL Hematocrit 38.6 % Mean Corpuscular Volume 88.3 FL Mean Corpuscular Hemoglobin 28.8 PG Mean Corpuscular Hemoglobin 32.6 % Concent Red Cell Distribution Width 16.6 % Platelet Count 150 TH/MM3 Mean Platelet Volume 10.0 FL Neutrophils (%) (Auto) 67.9 % Lymphocytes (%) (Auto) 24.1 % Monocytes (%) (Auto) 7.7 % Eosinophils (%) (Auto) 0.0 % Basophils (%) (Auto) 0.3 % Neutrophils # (Auto) 3.7 TH/MM3 Lymphocytes # (Auto) 1.3 TH/MM3 Monocytes # (Auto) 0.4 TH/MM3 Eosinophils # (Auto) 0.0 TH/MM3 Basophils # (Auto) 0.0 TH/MM3 CBC Comment DIFF FINAL Differential Comment Physical Exam General General Appearance: Well Developed, Well Nourished, Obese Eyes Eye Exam: Pupils Equal Ears & Nose Ears & Nose Exam: Nasal Mucosa [place] Throat Throat Exam: Oral Mucosa [place] & Moist Neck Neck Exam: Neck Supple, Trachea Midline Pulmonary Resp Exam: Rhonchi, Decreased Bases Resp Remarks exp. wheeze Cardiology CV Exam: Regular Gastrointestinal/Abdomen GI Exam: Soft, Non-Tender, Bowel Sounds Present, Non-Distended Musculoskeletal MS Exam: Joints Intact Integumentary Skin Exam: Warm Extremeties Extremities Exam: Pedal Pulses Palpable, Trace Edema Neurologic Neuro Exam: Alert, Awake, Speech Clear, Moving All Extremities, No Focal Deficits Neuro Remarks more awake, appropriate, cooperative VTE Prophylaxis VTE Prophylaxis Device: SCDs Assessment/Plan Problem List: (1) Respiratory failure (2) Hyperlipidemia (3) Encephalopathy (4) HTN (hypertension) (5) VENKAT (acute kidney injury) (6) UTI (urinary tract infection) (7) Hyperkalemia (8) SIRS (systemic inflammatory response syndrome) (9) Schizophrenia (10) Seizure disorder (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 mental status ? poss. encephalopathy, SIRS with UTI, poss. PNA continue abx, follow urine cultures, negative so far CXR ? pna ammonia elevated, now coming down continues to improved, oriented x 2. Calm, cooperative VENKAT renal function better continue IVF Resp. failure obtunded ? seizure, resp. failure, poss hypoventilation, ABG showed resp. acidosis. Angie called 08/24 acidosis slowly improving BIPAP at HS, now on oxygen via NC appreciate pulm and CCM input CCM signed off CT chest done, no acute findings continue duonebs wean down IV steroids overall improving, CO coming down will keep in ICU one more day poss seizure, has seizure disorder CT head negative EEG encephalopathy B12, TSH ok, RPR pending appreciate neuro input Valproic acid 40 Depakote dc -elevated ammonia ammonia coming down on Keppra 1000 mg IV BID BP elevated-still zayda dc Lopressor, HR 40s Continue Norvasc add Hydralazine 25 mg PO q 8 Schizophrenia psych input appreciated-recommendations noted. continue Seroquel recommends to dec. Invega dose due to renal dysfunction when he goes back to facility. improving Heparin for DVT prophylaxis overall improving, keep in ICU today appreciate consultants input CM for dc planning, pt. now lives [facility]. PT/ST eval Labs in am D/W RN D/W Dr. Sanchez This patient was seen by myself and Dr. Sanchez, this note is written on her behalf. Problem Qualifiers (1) Respiratory failure: Qualified Code: J96.01 - Acute respiratory failure with hypoxia and hypercapnia (2) Hyperlipidemia: Qualified Code: E78.5 - Hyperlipidemia, unspecified hyperlipidemia type (3) HTN (hypertension): Qualified Code: I10 - Essential hypertension (4) UTI (urinary tract infection): Qualified Code: N39.0 - Urinary tract infection without hematuria, site unspecified (5) Schizophrenia: Qualified Code: F20.3 - Undifferentiated schizophrenia Ly Burton Aug 28, 2016 10:11
[2016-08-28] MEDS: cefTRIAXone INJ 1,000 MG in SODIUM CHLORIDE 0.9% INJ 100 ML IV SCH (12:57)
[2016-08-28] MEDS: hydrALAZINE HCL 25 MG TAB PO SCH ×2 (14:00→21:57)
[2016-08-28] MEDS: PANTOPRAZOLE SODIUM 40 MG VIAL IV PUSH SCH (18:00)
[2016-08-28] MEDS: AZITHROMYCIN INJ 500 MG in SODIUM CHLOR 0.9% 250 ML INJ 250 ML IV SCH (18:02)
--- NOTE | 2016-08-28 18:15 | HHI.PR ---
Review/Management Diagnosis 1 .Encephalopathy, resolving. Possible etiology is metabolic encephalopathy/hyper ammoniemic encephalopathy 2.Schizophrenia. 3.Bipolar disorder. 4.Acute respiratory failure. 5.Asthma/ chronic obstructive pulmonary disease. 6.Diabetes. 7. Seizure disorder Plan 1. Neuro checks q one hourly. 2. D/brendon Depakote,given the hyperammonemia 3. Keppra 1000 mg Q12 h. 4. Seizure precautions. 5. DVT prophylaxis. 6. Supportive measures replenish electrolyte derangement and control blood sugar. 7. GI prophylaxis. Diagnosis/Plan: Subjective Subjective Comments No reported seizures Stable neurologic exam EEG revealed an encephalopathic pattern Head CT was unremarkable Active Medications Current Medications Medications (Trade) Dose Ordered Sig/Arpita Route Start Time Stop Time Status Last Admin (NS Flush) 2 ml UNSCH PRN IV FLUSH 08/24/16 11:45 08/26/16 08:58 (NS Flush) 2 ml BID IV FLUSH 08/24/16 21:00 08/28/16 09:00 (Tylenol) 650 mg Q4H PRN PO 08/24/16 12:00 (Zofran Inj) 4 mg Q6HR PRN IVP 08/24/16 12:00 (Heparin Inj) 5,000 units Q12HR SQ 08/24/16 21:00 08/28/16 08:41 (Narcan Inj) 0.4 mg UNSCH PRN IV 08/24/16 11:45 ([place]helsea-Colace) 1 tab BID PO 08/24/16 21:00 08/27/16 08:17 (Milk Of Magnesia Liq) 30 ml Q12HR PRN PO 08/24/16 12:00 Sennosides 17.2 mg 17.2 mg Q12HR PRN PO 08/24/16 12:00 Ceftriaxone Sodium 1000 mg/ Sodium Chloride 100 ml @ 200 mls/hr Q24H IV 08/24/16 13:00 08/28/16 12:57 (Zithromax Inj/ NS 250 ml Inj) 250 ml @ 250 mls/hr Q24H IV 08/24/16 14:00 08/28/16 18:02 (KlonoPIN) 0.5 mg BID PO 08/24/16 22:45 Hold 08/25/16 20:04 (SEROquel) 25 mg BID PO 08/24/16 22:45 08/28/16 08:41 (Flomax) 0.4 mg HS PO 08/24/16 22:45 08/27/16 19:59 (D50w (Vial) Inj) 50 ml UNSCH PRN IV 08/25/16 11:00 (Glucagon Inj) 1 mg UNSCH PRN OTHER 08/25/16 11:00 (Ditropan) 5 mg BID PO 08/25/16 21:00 08/28/16 08:41 (Prinivil) 2.5 mg DAILY PO 08/26/16 09:00 Hold (Pill Splitter) 1 ea UNSCH PRN OTHER 08/25/16 11:15 (Ativan Inj) 1 mg Q2H PRN IV PUSH 08/25/16 16:30 Pantoprazole Sodium 40 mg 40 mg Q24H IV PUSH 08/25/16 18:00 08/28/16 18:00 (Keppra 1000 Mg Inj) 100 ml @ 100 mls/hr Q12H IV 08/26/16 07:00 08/28/16 18:01 (Norvasc) 10 mg DAILY PO 08/27/16 09:00 08/28/16 08:41 (Apresoline Inj) 20 mg Q4H PRN IV PUSH 08/27/16 03:30 08/27/16 03:50 (Apresoline) 25 mg Q8HR PO 08/28/16 14:00 (SoluMEDROL INJ) 40 mg Q12HR IV 08/28/16 21:00 Allergies Allergies Coded Allergies No Known Allergies (Verified08/24/16) Exam I&O / VS 08/27/16 08/27/16 08/28/16 15:00 23:00 07:00 Intake Total 440 ml 790 ml 485 ml Output Total 1150 ml 700 ml 600 ml Balance -710 ml 90 ml -115 ml Intake Oral 150 ml 240 ml 120 ml IV Total 290 ml 550 ml 365 ml Output Urine Total 1150 ml 700 ml 600 ml # Bowel Movements 1 0 0 Vital Signs Date Time Temp Pulse Resp B/P Pulse Ox O2 Delivery O2 Flow Rate FiO2 08/28/16 16:00 91 08/28/16 16:00 98.4 64 20 145/79 95 08/28/16 14:00 91 08/28/16 12:00 98.5 75 16 136/87 100 08/28/16 12:00 91 08/28/16 10:00 91 08/28/16 08:30 98 Nasal Cannula 2.00 08/28/16 08:00 91 08/28/16 08:00 98.2 91 16 163/73 100 08/28/16 07:30 98 Nasal Cannula 3.00 08/28/16 07:00 Nasal Cannula 4.00 08/28/16 06:00 47 08/28/16 04:00 98.0 41 15 190/95 100 08/28/16 04:00 41 08/28/16 03:20 100 30 08/28/16 03:00 41 08/28/16 02:00 47 08/28/16 00:39 100 30 08/28/16 00:00 55 08/28/16 00:00 98.2 55 19 150/82 99 08/27/16 22:26 100 30 08/27/16 22:00 52 08/27/16 20:15 98 Nasal Cannula 3.00 08/27/16 20:00 97.8 59 20 161/74 98 08/27/16 20:00 59 08/27/16 19:00 98 Nasal Cannula 4.00 Exam Comments IN GENERAL: Obese AA male, in mild distress, with slurred speech. HEAD, EYES, EARS, NOSE, AND THROAT: Atraumatic, normocephalic. Exophthalmic eyes. No gaze deviation and injected scale NECK: Supple without meningeal irritation. CHEST: Decreased breath sounds bilateral expiratory wheezes. HEART: Regular rate and rhythm. ABDOMEN: Soft, nontender, obese. EXTREMITIES: Mild edema bilateral extremities, moves all extremities. NEUROLOGIC: Awake, alert and dysarthric, oriented to person, time, not to place , engages in a conversation while family members and friends were around him during the encounter, Moves extremities. No dysphasia. Moves extremities equally. Reflexes 1+ bilateral symmetrical. Plantar bilaterally downgoing. Objective Radiology Results Last 72 hours Impressions Chest X-Ray 08/27/16 06 Signed Impressions: Service Date/Time: Saturday, August 27, 2016 03:06 - CONCLUSION: No appreciable change. Ada Peña MD Chest X-Ray 08/26/16 0600 Signed Impressions: Service Date/Time: Friday, August 26, 2016 02:59 - CONCLUSION: Slight right lung base atelectasis and/or infiltrate and left midlung atelectasis. Ada Peña MD Micro and Labs Laboratory Tests Test 08/28/16 03:21 White Blood Count 5.5 Red Blood Count 4.37 Hemoglobin 12.6 Hematocrit 38.6 Mean Corpuscular Volume 88.3 Mean Corpuscular Hemoglobin 28.8 Mean Corpuscular Hemoglobin 32.6 Concent Red Cell Distribution Width 16.6 Platelet Count 150 Mean Platelet Volume 10.0 Neutrophils (%) (Auto) 67.9 Lymphocytes (%) (Auto) 24.1 Monocytes (%) (Auto) 7.7 Eosinophils (%) (Auto) 0.0 Basophils (%) (Auto) 0.3 Neutrophils # (Auto) 3.7 Lymphocytes # (Auto) 1.3 Monocytes # (Auto) 0.4 Eosinophils # (Auto) 0.0 Basophils # (Auto) 0.0 CBC Comment DIFF FINAL Differential Comment Sodium Level 142 Potassium Level 5.1 Chloride Level 102 Carbon Dioxide Level 33.6 Anion Gap 6 Blood Urea Nitrogen 37 Creatinine 1.18 Estimat Glomerular Filtration 74 Rate Random Glucose 232 Calcium Level 9.1 Total Bilirubin 0.2 Aspartate Amino Transf 13 (AST/SGOT) Alanine Aminotransferase 23 (ALT/SGPT) Alkaline Phosphatase 59 Total Protein 6.7 Albumin 2.5 Date/Time Procedure Status Source Growth 08/24/16 09:12 Urine Culture - Final Complete Urine Catheterized Urine 08/24/16 08:20 Aerobic Blood Culture - Preliminary Resulted Blood Peripheral NO GROWTH IN 4 DAYS 08/24/16 08:20 Anaerobic Blood Culture - Preliminary Resulted Blood Peripheral NO GROWTH IN 4 DAYS Clarita Guillaume MD Aug 28, 2016 18:15
--- NOTE | 2016-08-28 19:13 | HHI.PR ---
Subjective Remarks Awake and seems agitated . No Seizure.Output was good. He is on seroquel. Objective Vital Signs Date Time Temp Pulse Resp B/P Pulse Ox O2 Delivery O2 Flow Rate FiO2 08/28/16 18:00 91 08/28/16 16:00 91 08/28/16 16:00 98.4 64 20 145/79 95 08/28/16 14:00 91 08/28/16 12:00 98.5 75 16 136/87 100 08/28/16 12:00 91 08/28/16 10:00 91 08/28/16 08:30 98 Nasal Cannula 2.00 08/28/16 08:00 91 08/28/16 08:00 98.2 91 16 163/73 100 08/28/16 07:30 98 Nasal Cannula 3.00 08/28/16 07:00 Nasal Cannula 4.00 08/28/16 06:00 47 08/28/16 04:00 98.0 41 15 190/95 100 08/28/16 04:00 41 08/28/16 03:20 100 30 08/28/16 03:00 41 08/28/16 02:00 47 08/28/16 00:39 100 30 08/28/16 00:00 55 08/28/16 00:00 98.2 55 19 150/82 99 08/27/16 22:26 100 30 08/27/16 22:00 52 08/27/16 20:15 98 Nasal Cannula 3.00 08/27/16 20:00 97.8 59 20 161/74 98 08/27/16 20:00 59 I/O 08/27/16 08/27/16 08/27/16 08/28/16 08/28/16 08/28/16 07:00 15:00 23:00 07:00 15:00 23:00 Intake Total 680 ml 440 ml 790 ml 485 ml 1149 ml Output Total 750 ml 1150 ml 700 ml 600 ml 900 ml Balance -70 ml -710 ml 90 ml -115 ml 249 ml Intake Oral 120 ml 150 ml 240 ml 120 ml 720 ml IV Total 560 ml 290 ml 550 ml 365 ml 429 ml Output Urine Total 750 ml 1150 ml 700 ml 600 ml 900 ml # Bowel Movements 0 1 0 0 Result Diagram: 08/28/16 0321 08/28/16 0321 Objective Remarks GENERAL: This is a moderately obese elderly man who is alert. He is awake HEAD, EYES, EARS, NOSE, THROAT: Head normocephalic. The pupils are reactive. The sclerae were clear. Throat clear NECK: The neck is supple without venous distention. No thyromegaly. CHEST: Decreased breath sounds with bilateral expiratory wheezes, prolonged expirations. HEART: Heart sounds are regular. S1 and S2. No murmur. No S3. ABDOMEN: Abdomen is soft obese without masses. No organomegaly or tenderness. EXTREMITIES: min edema. Peripheral pulses are not well-felt. NEUROLOGIC: Reflexes are not elicited. The patient is alert . Babinski is negative. SKIN: Skin was dry and warm. Assessment and Plan Assessment and Plan IMPRESSION: 1. Hypercapnic respiratory failure. 2. COPD with asthma and chronic bronchitis. 3. History of seizure disorder. 4. History of bipolar disorder. 5. Diabetes mellitus type 2. 6. Hypertension. 7. Possible aspiration pneumonia. Plan : 1. O2 at 3L 2. Duonebs qid with nebulizer 3. Cont Antibiotics. and D/c Zithromax 4. Up in chair as tolerated 5. Seizure precautions. 6. Chest X ray in am 7. Cont solumedrol 40 mg IV q12h. Stephan Joshua MD Aug 28, 2016 19:13
[2016-08-28] MEDS ORDERED: methylPREDNISolone SOD SUCC 40 MG/1 ML VIAL IV SCH (21:00)
[2016-08-28] MEDS: predniSONE 10 MG TAB PO SCH (21:56)
[2016-08-28] MEDS: TAMSULOSIN HCL 0.4 MG CAP PO SCH (21:57)
[2016-08-29] VITALS (28 sets, daily range): BP systolic 117–162; BP diastolic 63–92; PULSE 41–82; RESP 9–29; TEMP 98.1–98.4; O2SAT 97–100
[2016-08-29] MEDS: hydrALAZINE HCL 25 MG TAB PO SCH ×3 (05:46→21:32)
[2016-08-29] MEDS: levETIRAcetam 1000 MG INJ 100 ML IV SCH ×2 (06:01→18:43)
--- NOTE | 2016-08-29 06:17 | RADRPT ---
EXAM DATE/TIME: 08/29/2016 04:08 [facility] COMPARISON: CHEST SINGLE AP, August 27, 2016, 3:06. INDICATIONS : Chest pain. MEDICAL HISTORY : Cardiovascular disease. Hypertension Diabetes mellitus type II. Renal SURGICAL HISTORY : None. ENCOUNTER: Subsequent ACUITY: 4 - 6 days PAIN SCORE: 0/10 LOCATION: Bilateral chest FINDINGS: A single view of the chest demonstrates the lungs to be symmetrically aerated without evidence of mas s, infiltrate or effusion other than some flat areas of atelectasis in both lung bases. The cardiome diastinal contours are unremarkable. Osseous structures are intact. CONCLUSION: No minimal platelike areas of infiltrate bilaterally, unchanged.. Armani Wong MD on August 29, 2016 at 6:15 Board Certified Radiologist. This report was verified electronically.
[2016-08-29 07:02] LABS: BICARBONATE 34.9 MEQ/L (21.0-32.0); POTASSIUM 5.2 MEQ/L (3.5-5.1)
[2016-08-29] MEDS: INSULIN ASPART SUPPLEMENTAL SCALE SQ SCH ×4 (07:42→21:32)
[2016-08-29] MEDS: predniSONE 10 MG TAB PO SCH ×2 (09:36→21:32)
[2016-08-29] MEDS: QUEtiapine FUMARATE 25 MG TAB PO SCH ×2 (09:36→21:32)
[2016-08-29] MEDS: HEPARIN SODIUM - SQ 10,000 UNITS/ML VIAL SQ SCH ×2 (09:37→21:33)
[2016-08-29] MEDS: OXYBUTYNIN CHLORIDE 5 MG TAB PO SCH ×2 (09:37→21:33)
[2016-08-29] MEDS: DOCUSATE SODIUM 50 MG/SENNA 8.6 MG TAB PO SCH ×2 (09:37→21:33)
[2016-08-29] MEDS: SODIUM CHLORIDE 0.9% FLUSH 10 ML FLUSH IV FLUSH SCH ×2 (09:37→21:33)
--- NOTE | 2016-08-29 12:25 | HHI.PR ---
Subjective Remarks Awake and seems lethargic .No fever. He is on seroquel. Objective Vital Signs Date Time Temp Pulse Resp B/P Pulse Ox O2 Delivery O2 Flow Rate FiO2 08/29/16 08:49 99 Nasal Cannula 2.00 08/29/16 06:00 46 08/29/16 04:05 100 30 08/29/16 04:00 98.2 43 14 160/81 100 08/29/16 04:00 43 08/29/16 02:00 44 08/29/16 01:03 100 30 08/29/16 00:00 98.4 47 22 151/72 100 08/29/16 00:00 47 08/28/16 22:15 98 30 08/28/16 22:00 100 Bi-Pap 30 08/28/16 22:00 59 08/28/16 20:00 98.3 71 20 155/78 100 08/28/16 20:00 71 08/28/16 19:12 98 Nasal Cannula 2.00 08/28/16 19:00 100 Nasal Cannula 4.00 08/28/16 18:00 91 08/28/16 16:00 91 08/28/16 16:00 98.4 64 20 145/79 95 08/28/16 14:00 91 I/O 08/28/16 08/28/16 08/28/16 08/29/16 08/29/16 08/29/16 07:00 15:00 23:00 07:00 15:00 23:00 Intake Total 485 ml 1149 ml 717 ml 510 ml Output Total 600 ml 900 ml 1500 ml 950 ml Balance -115 ml 249 ml -783 ml -440 ml Intake Oral 120 ml 720 ml 380 ml 360 ml IV Total 365 ml 429 ml 337 ml 150 ml Output Urine Total 600 ml 900 ml 1500 ml 950 ml # Bowel Movements 0 0 0 Result Diagram: 08/28/16 0321 08/29/16 0534 Objective Remarks GENERAL: This is a moderately obese elderly man who is alert. He is awake HEAD, EYES, EARS, NOSE, THROAT: Head normocephalic. The pupils are reactive. The sclerae were clear. Throat clear NECK: The neck is supple without venous distention. No thyromegaly. CHEST: Decreased breath sounds with bilateral expiratory wheezes, prolonged expirations.Occ Crackles. HEART: Heart sounds are regular. S1 and S2. No murmur. No S3. ABDOMEN: Abdomen is soft obese without masses. No organomegaly or tenderness. EXTREMITIES: min edema. Peripheral pulses are not well-felt. NEUROLOGIC: Reflexes are 1 +. The patient is alert . Moves all. Babinski is negative. SKIN: Skin was dry and warm. Assessment and Plan Assessment and Plan IMPRESSION: 1. Hypercapnic respiratory failure. 2. COPD with asthma and chronic bronchitis. 3. History of seizure disorder. 4. History of bipolar disorder. 5. Diabetes mellitus type 2. 6. Hypertension. 7. Possible aspiration pneumonia. Plan : 1. O2 at 3L , Daytime 2. Duonebs qid with nebulizer 3. Cont Antibiotics. 4. Up in chair as tolerated 5. Seizure precautions. 6. Bipap at HS if he desats <92 7. D/C solumedrol 8. Add Prednisone 20 mg daily Stephan Joshua MD Aug 29, 2016 12:25
[2016-08-29] MEDS: cefTRIAXone INJ 1,000 MG in SODIUM CHLORIDE 0.9% INJ 100 ML IV SCH (12:43)
--- NOTE | 2016-08-29 13:21 | HHI.PR ---
Subjective Subjective Remarks lethargic today difficult to arouse oriented to self unable to obtain ROS HR 40s Review of Systems Constitutional Constitutional Remarks 12 point ROS limited Vitals/Results Intake & Output 08/28/16 08/28/16 08/29/16 15:00 23:00 07:00 Intake Total 1149 ml 717 ml 510 ml Output Total 900 ml 1500 ml 950 ml Balance 249 ml -783 ml -440 ml Intake Oral 720 ml 380 ml 360 ml IV Total 429 ml 337 ml 150 ml Output Urine Total 900 ml 1500 ml 950 ml # Bowel Movements 0 0 Vital Signs Vital Signs Date Time Temp Pulse Resp B/P Pulse Ox O2 Delivery O2 Flow Rate FiO2 08/29/16 08:49 99 Nasal Cannula 2.00 08/29/16 06:00 46 08/29/16 04:05 100 30 08/29/16 04:00 98.2 43 14 160/81 100 08/29/16 04:00 43 08/29/16 02:00 44 08/29/16 01:03 100 30 08/29/16 00:00 98.4 47 22 151/72 100 08/29/16 00:00 47 08/28/16 22:15 98 30 08/28/16 22:00 100 Bi-Pap 30 08/28/16 22:00 59 08/28/16 20:00 98.3 71 20 155/78 100 08/28/16 20:00 71 08/28/16 19:12 98 Nasal Cannula 2.00 08/28/16 19:00 100 Nasal Cannula 4.00 08/28/16 18:00 91 08/28/16 16:00 91 08/28/16 16:00 98.4 64 20 145/79 95 08/28/16 14:00 91 CBC/BMP: 08/28/16 0321 08/29/16 0534 Lab Results Laboratory Tests Test 08/29/16 05:34 Sodium Level 142 MEQ/L Potassium Level 5.2 MEQ/L Chloride Level 103 MEQ/L Carbon Dioxide Level 34.9 MEQ/L Anion Gap 4 MEQ/L Blood Urea Nitrogen 30 MG/DL Creatinine 0.98 MG/DL Estimat Glomerular Filtration 92 ML/MIN Rate Random Glucose 171 MG/DL Calcium Level 9.2 MG/DL Physical Exam General General Appearance: Well Developed, Well Nourished, Obese Eyes Eye Exam: Pupils Equal Ears & Nose Ears & Nose Exam: Nasal Mucosa [place] Throat Throat Exam: Oral Mucosa [place] & Moist Neck Neck Exam: Neck Supple, Trachea Midline Pulmonary Resp Exam: Rhonchi, Decreased Bases Resp Remarks exp. wheeze Cardiology CV Exam: Regular Gastrointestinal/Abdomen GI Exam: Soft, Non-Tender, Bowel Sounds Present, Non-Distended Musculoskeletal MS Exam: Joints Intact Integumentary Skin Exam: Warm Extremeties Extremities Exam: Pedal Pulses Palpable, Trace Edema Neurologic Neuro Remarks lethargic VTE Prophylaxis VTE Prophylaxis Device: SCDs Assessment/Plan Problem List: (1) Respiratory failure (2) Hyperlipidemia (3) Encephalopathy (4) HTN (hypertension) (5) VENKAT (acute kidney injury) (6) UTI (urinary tract infection) (7) Hyperkalemia (8) SIRS (systemic inflammatory response syndrome) (9) Schizophrenia (10) Seizure disorder (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 failure obtunded ? seizure, resp. failure, poss hypoventilation, ABG showed resp. acidosis. Angie called 08/24 BIPAP at HS, now on oxygen via NC appreciate pulm and CCM input CCM signed off CT chest done, no acute findings continue duonebs/PO steroids lethargic today, repeat ABGs now alt. mental status ? poss. encephalopathy, SIRS with UTI, poss. PNA continue abx, follow urine cultures, negative so far CXR ? pna lethargic today, ABG pending VENKAT renal function better continue IVF poss seizure, has seizure disorder CT head negative EEG encephalopathy B12, TSH ok, RPR pending appreciate neuro input Valproic acid 40 Depakote dc -elevated ammonia ammonia coming down on Keppra 1000 mg IV BID HTN continue Norvasc and Hydralazine no BB due to bradycardia. Schizophrenia psych input appreciated-recommendations noted. continue Seroquel recommends to dec. Invega dose due to renal dysfunction when he goes back to facility. improving Hyperkalemia BMP in am Heparin for DVT prophylaxis PT/ST eval lethargic again, ABGs pending keep in ICU Labs in am D/W RN D/W Dr. Sanchez This patient was seen by myself and Dr. Sanchez, this note is written on her behalf. Problem Qualifiers (1) Respiratory failure: Qualified Code: J96.01 - Acute respiratory failure with hypoxia and hypercapnia (2) Hyperlipidemia: Qualified Code: E78.5 - Hyperlipidemia, unspecified hyperlipidemia type (3) HTN (hypertension): Qualified Code: I10 - Essential hypertension (4) UTI (urinary tract infection): Qualified Code: N39.0 - Urinary tract infection without hematuria, site unspecified (5) Schizophrenia: Qualified Code: F20.3 - Undifferentiated schizophrenia Ly Burton Aug 29, 2016 13:21 (3) HTN (hypertension): Qualified Code: I10 - Essential hypertension (4) UTI (urinary tract infection): Qualified Code: N39.0 - Urinary tract infection without hematuria, site unspecified (5) Schizophrenia: Qualified Code: F20.3 - Undifferentiated schizophrenia Ly Burton Aug 29, 2016 13:21
[2016-08-29 14:29] LABS: BLOOD GAS BASE EXCESS 6.9 mmol/L (-2-2); BLOOD GAS CARBOXYHEMOGLOBIN 1.4 % (0-4); BLOOD GAS HCO3 33 mmol/L (22-26); BLOOD GAS METHEMOGLOBIN 1.1 % (0-2); BLOOD GAS O2 HGB SATURATION 90 % (90-100); BLOOD GAS OXYGEN CONTENT 17.1 Vol % (12.0-20.0); BLOOD GAS PCO2 71 mmHg (38-42); BLOOD GAS PO2 72 mmHg (61-120); BLOOD GAS TOTAL HGB 13.5 G/DL (12.0-16.0); TEMP CORR TO 98.6
[2016-08-29 14:30] LABS: CRITICAL VALUE YES; DRAW SITE RT RADIAL; LITER FLOW 2 L/M; NUMBER OF ARTERIAL PUNCTURES 1; OXYGEN DEVICE NASAL CANNULA; STAT NO; ULNAR PULSE PRESENT
[2016-08-29] MEDS: PANTOPRAZOLE SODIUM 40 MG VIAL IV PUSH SCH (18:43)
[2016-08-29] MEDS: TAMSULOSIN HCL 0.4 MG CAP PO SCH (21:33)
[2016-08-30] VITALS (43 sets, daily range): BP systolic 99–152; BP diastolic 47–82; PULSE 46–97; RESP 13–49; TEMP 97.6–98.5; O2SAT 92–100
[2016-08-30 04:21] LABS: HEMATOCRIT 40.5 % (39.0-51.0); MEAN CELL VOLUME 88.1 FL (80.0-100.0); MEAN CORPUSCULAR HEMOGLOBIN 28.3 PG (27.0-34.0); MEAN CORPUSCULAR HGB CONC 32.1 % (32.0-36.0); PLATELET COUNT 152 TH/MM3 (150-450); RED CELL DISTRIBUTION WIDTH 16.6 % (11.6-17.2); REVIEW FLAG FINAL; WHITE BLOOD COUNT 5.1 TH/MM3 (4.0-11.0)
[2016-08-30 04:51] LABS: BICARBONATE 36.9 MEQ/L (21.0-32.0); POTASSIUM 5.3 MEQ/L (3.5-5.1)
[2016-08-30] MEDS: levETIRAcetam 1000 MG INJ 100 ML IV SCH ×2 (06:14→20:28)
[2016-08-30] MEDS: hydrALAZINE HCL 25 MG TAB PO SCH ×3 (06:15→20:37)
[2016-08-30] MEDS: INSULIN ASPART SUPPLEMENTAL SCALE SQ SCH ×4 (06:23→20:33)
[2016-08-30] MEDS: SODIUM CHLORIDE 0.9% FLUSH 10 ML FLUSH IV FLUSH SCH ×2 (09:00→20:33)
[2016-08-30] MEDS: QUEtiapine FUMARATE 25 MG TAB PO SCH ×2 (09:50→20:37)
[2016-08-30] MEDS: DOCUSATE SODIUM 50 MG/SENNA 8.6 MG TAB PO SCH ×2 (09:51→20:36)
[2016-08-30] MEDS: OXYBUTYNIN CHLORIDE 5 MG TAB PO SCH ×2 (09:51→20:37)
[2016-08-30] MEDS: HEPARIN SODIUM - SQ 10,000 UNITS/ML VIAL SQ SCH ×2 (09:51→20:34)
[2016-08-30] MEDS: predniSONE 10 MG TAB PO SCH ×2 (09:51→20:36)
--- NOTE | 2016-08-30 10:17 | HHI.PR ---
Subjective Interval History awake alert and oriented on NC off BIPAP since 6 am Heart rate improved in high 50s no other issues Vitals/Results Intake & Output 08/29/16 08/29/16 08/30/16 15:00 23:00 07:00 Intake Total 484 ml 500 ml 580 ml Output Total 800 ml 1000 ml 1200 ml Balance -316 ml -500 ml -620 ml Intake Oral 360 ml 500 ml 460 ml IV Total 124 ml 120 ml Output Urine Total 800 ml 1000 ml 1200 ml # Bowel Movements 0 0 0 Vital Signs Vital Signs Date Time Temp Pulse Resp B/P Pulse Ox O2 Delivery O2 Flow Rate FiO2 08/30/16 10:01 100 21 08/30/16 06:00 54 08/30/16 04:00 97.6 52 20 129/67 99 08/30/16 04:00 52 08/30/16 02:00 70 08/30/16 00:00 98.0 74 14 114/60 98 08/30/16 00:00 74 08/29/16 22:00 68 08/29/16 20:27 100 21 08/29/16 20:00 69 08/29/16 20:00 98.1 69 16 146/63 100 08/29/16 19:00 43 15 127/77 100 08/29/16 19:00 100 Nasal Cannula 4.00 08/29/16 18:01 42 15 135/81 100 08/29/16 17:01 41 13 157/72 99 08/29/16 17:00 42 15 100 08/29/16 16:09 58 14 142/69 99 08/29/16 15:41 50 14 162/81 100 08/29/16 15:40 50 19 150/75 100 08/29/16 15:00 55 17 153/81 100 08/29/16 14:40 100 30 08/29/16 14:00 81 29 158/92 97 08/29/16 13:01 72 17 143/68 100 08/29/16 13:00 73 15 100 08/29/16 12:00 71 9 117/68 100 08/29/16 11:00 71 21 99 CBC/BMP: 08/30/16 0347 08/30/16 0347 Lab Results Laboratory Tests Test 08/29/16 08/30/16 14:19 03:47 Blood Gas Puncture Site RT RADIAL Blood Gas Patient Temperature 98.6 Blood Gas HCO3 33 mmol/L Blood Gas Base Excess 6.9 mmol/L Blood Gas Oxygen Saturation 90 % Arterial Blood pH 7.29 Arterial Blood Partial 71 mmHg Pressure CO2 Arterial Blood Partial 72 mmHg Pressure O2 Arterial Blood Oxygen Content 17.1 Vol % Arterial Blood 1.4 % Carboxyhemoglobin Arterial Blood Methemoglobin 1.1 % Blood Gas Hemoglobin 13.5 G/DL Oxygen Delivery Device NASAL CANNULA Blood Gas Liter Flow 2 L/M White Blood Count 5.1 TH/MM3 Red Blood Count 4.60 MIL/MM3 Hemoglobin 13.0 GM/DL Hematocrit 40.5 % Mean Corpuscular Volume 88.1 FL Mean Corpuscular Hemoglobin 28.3 PG Mean Corpuscular Hemoglobin 32.1 % Concent Red Cell Distribution Width 16.6 % Platelet Count 152 TH/MM3 Mean Platelet Volume 9.4 FL Sodium Level 140 MEQ/L Potassium Level 5.3 MEQ/L Chloride Level 102 MEQ/L Carbon Dioxide Level 36.9 MEQ/L Anion Gap 1 MEQ/L Blood Urea Nitrogen 29 MG/DL Creatinine 1.02 MG/DL Estimat Glomerular Filtration 88 ML/MIN Rate Random Glucose 184 MG/DL Calcium Level 9.2 MG/DL Physical Exam General General Appearance: Well Developed, Well Nourished, Obese Eyes Eye Exam: Pupils Equal Ears & Nose Ears & Nose Exam: Nasal Mucosa [place] Throat Throat Exam: Oral Mucosa [place] & Moist Neck Neck Exam: Neck Supple, Trachea Midline Pulmonary Resp Exam: Rhonchi, Decreased Bases Cardiology CV Exam: Regular Gastrointestinal/Abdomen GI Exam: Soft, Non-Tender, Bowel Sounds Present, Non-Distended Musculoskeletal MS Exam: Joints Intact Integumentary Skin Exam: Warm Extremeties Extremities Exam: Pedal Pulses Palpable, Trace Edema VTE Prophylaxis VTE Prophylaxis Device: SCDs Assessment/Plan Problem List: (1) Respiratory failure (2) Hyperlipidemia (3) Encephalopathy (4) HTN (hypertension) (5) VENKAT (acute kidney injury) (6) UTI (urinary tract infection) (7) Hyperkalemia (8) SIRS (systemic inflammatory response syndrome) (9) Schizophrenia (10) Seizure disorder (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 failure obtunded ? seizure, resp. failure, poss hypoventilation, ABG showed resp. acidosis. Angie called 08/24 BIPAP at , now on oxygen via NC appreciate pulm and CCM input CCM signed off CT chest done, no acute findings continue duonebs/PO steroids lethargic yesterday, with resp acidosis,improved with BIPAP repeat ABG pending alt. mental status ? poss. encephalopathy, likely sec to hypercarbic resp failure and resp acidosis continue abx, follow urine cultures, negative so far CXR ? pna VENKAT renal function better continue IVF poss seizure, has seizure disorder CT head negative EEG encephalopathy B12, TSH ok, RPR pending appreciate neuro input Valproic acid 40 Depakote dc -elevated ammonia ammonia coming down on Keppra 1000 mg IV BID HTN continue Norvasc and Hydralazine no BB due to bradycardia. Schizophrenia psych input appreciated-recommendations noted. continue Seroquel recommends to feb. Invega dose due to renal dysfunction when he goes back to facility. improving Hyperkalemia kayeaxalate x1 BMP in am Heparin for DVT prophylaxis PT/ST eval keep in ICU will need cPAP hs at facility at discharge D/W RN Problem Qualifiers (1) Respiratory failure: Qualified Code: J96.01 - Acute respiratory failure with hypoxia and hypercapnia (2) Hyperlipidemia: Qualified Code: E78.5 - Hyperlipidemia, unspecified hyperlipidemia type (3) HTN (hypertension): Qualified Code: I10 - Essential hypertension (4) UTI (urinary tract infection): Qualified Code: N39.0 - Urinary tract infection without hematuria, site unspecified (5) Schizophrenia: Qualified Code: F20.3 - Undifferentiated schizophrenia Indy Sanchez MD Aug 30, 2016 10:17
[2016-08-30 10:43] LABS: BLOOD GAS BASE EXCESS 7.9 mmol/L (-2-2); BLOOD GAS CARBOXYHEMOGLOBIN 1.4 % (0-4); BLOOD GAS HCO3 34 mmol/L (22-26); BLOOD GAS METHEMOGLOBIN 1.1 % (0-2); BLOOD GAS O2 HGB SATURATION 84 % (90-100); BLOOD GAS OXYGEN CONTENT 15.8 Vol % (12.0-20.0); BLOOD GAS PCO2 72 mmHg (38-42); BLOOD GAS PO2 56 mmHg (61-120); BLOOD GAS TOTAL HGB 13.4 G/DL (12.0-16.0); TEMP CORR TO 98.6
[2016-08-30 10:46] LABS: CRITICAL VALUE YES; DRAW SITE RT RADIAL; FIO2 21 %; NUMBER OF ARTERIAL PUNCTURES 1; STAT NO; ULNAR PULSE PRESENT
[2016-08-30] MEDS ORDERED: SODIUM POLYSTYRENE SULFONATE SUSP 15 GM/60 ML CUP PO ONE (11:00)
--- NOTE | 2016-08-30 12:44 | HHI.PR ---
Subjective Remarks Awake and seems confused.No fever. He was on Bipap last PM. Objective Vital Signs Date Time Temp Pulse Resp B/P Pulse Ox O2 Delivery O2 Flow Rate FiO2 08/30/16 10:58 100 30 08/30/16 10:01 100 21 08/30/16 10:00 66 08/30/16 08:00 66 08/30/16 07:00 Nasal Cannula 2.00 08/30/16 06:00 54 08/30/16 04:00 97.6 52 20 129/67 99 08/30/16 04:00 52 08/30/16 02:00 70 08/30/16 00:00 98.0 74 14 114/60 98 08/30/16 00:00 74 08/29/16 22:00 68 08/29/16 20:27 100 21 08/29/16 20:00 69 08/29/16 20:00 98.1 69 16 146/63 100 08/29/16 19:00 43 15 127/77 100 08/29/16 19:00 100 Nasal Cannula 4.00 08/29/16 18:01 42 15 135/81 100 08/29/16 17:01 41 13 157/72 99 08/29/16 17:00 42 15 100 08/29/16 16:09 58 14 142/69 99 08/29/16 15:41 50 14 162/81 100 08/29/16 15:40 50 19 150/75 100 08/29/16 15:00 55 17 153/81 100 08/29/16 14:40 100 30 08/29/16 14:00 81 29 158/92 97 08/29/16 13:01 72 17 143/68 100 08/29/16 13:00 73 15 100 I/O 08/29/16 08/29/16 08/29/16 08/30/16 08/30/16 08/30/16 07:00 15:00 23:00 07:00 15:00 23:00 Intake Total 510 ml 484 ml 500 ml 580 ml Output Total 950 ml 800 ml 1000 ml 1200 ml Balance -440 ml -316 ml -500 ml -620 ml Intake Oral 360 ml 360 ml 500 ml 460 ml IV Total 150 ml 124 ml 120 ml Output Urine Total 950 ml 800 ml 1000 ml 1200 ml # Bowel Movements 0 0 0 0 Result Diagram: 08/30/167 08/30/16 0347 Objective Remarks GENERAL: This is a moderately obese elderly man who is alert. He is awake HEAD, EYES, EARS, NOSE, THROAT: Head normocephalic. The pupils are reactive. The sclerae were clear. Throat clear NECK: The neck is supple without venous distention. No thyromegaly. CHEST: Decreased breath sounds with bilateral expiratory wheezes, prolonged expirations. Occ Crackles. HEART: Heart sounds are regular. S1 and S2. No murmur. No S3. ABDOMEN: Abdomen is soft obese without masses. No organomegaly or tenderness. EXTREMITIES: min edema. Peripheral pulses are not well-felt. NEUROLOGIC: Reflexes are 1 +. The patient is alert . Moves all. Babinski is negative. SKIN: Skin was dry and warm. Assessment and Plan Assessment and Plan IMPRESSION: 1. Hypercapnic respiratory failure. 2. COPD with asthma and chronic bronchitis. 3. History of seizure disorder. 4. History of bipolar disorder. 5. Diabetes mellitus type 2. 6. Hypertension. 7. Possible aspiration pneumonia. Plan : 1. O2 at 3L , Daytime 2. Duonebs qid with nebulizer 3. Cont Antibiotics. 4. Up in chair as tolerated 5. Ceftin 500 mg bid x 5 days 6. Bipap at HS if he desats <92 7. D/C Rocephin 8. Add Prednisone 20 mg daily Stephan Joshua MD Aug 30, 2016 12:44
[2016-08-30] MEDS: PANTOPRAZOLE SODIUM 40 MG VIAL IV PUSH SCH (16:38)
[2016-08-30] MEDS: CEFUROXIME AXETIL 500 MG TAB PO SCH (20:35)
[2016-08-30] MEDS: TAMSULOSIN HCL 0.4 MG CAP PO SCH (20:36)
[2016-08-31] VITALS (22 sets, daily range): BP systolic 113–171; BP diastolic 67–93; PULSE 44–91; RESP 17–109; TEMP 98.2–98.7; O2SAT 91–100
[2016-08-31 04:21] LABS: BICARBONATE 37.1 MEQ/L (21.0-32.0); POTASSIUM 5.6 MEQ/L (3.5-5.1)
[2016-08-31] MEDS: hydrALAZINE HCL 25 MG TAB PO SCH ×3 (06:04→21:35)
[2016-08-31] MEDS: levETIRAcetam 1000 MG INJ 100 ML IV SCH ×2 (06:04→18:48)
[2016-08-31] MEDS: INSULIN ASPART SUPPLEMENTAL SCALE SQ SCH ×4 (06:05→21:53)
[2016-08-31] MEDS: SODIUM CHLORIDE 0.9% FLUSH 10 ML FLUSH IV FLUSH SCH ×2 (09:00→21:00)
[2016-08-31] MEDS: QUEtiapine FUMARATE 25 MG TAB PO SCH ×2 (09:17→21:35)
[2016-08-31] MEDS: predniSONE 10 MG TAB PO SCH ×2 (09:17→21:35)
[2016-08-31] MEDS: OXYBUTYNIN CHLORIDE 5 MG TAB PO SCH ×2 (09:17→21:35)
[2016-08-31] MEDS: CEFUROXIME AXETIL 500 MG TAB PO SCH ×2 (09:17→21:35)
[2016-08-31] MEDS: DOCUSATE SODIUM 50 MG/SENNA 8.6 MG TAB PO SCH ×2 (09:17→21:35)
[2016-08-31] MEDS: HEPARIN SODIUM - SQ 10,000 UNITS/ML VIAL SQ SCH ×2 (09:18→21:37)
--- NOTE | 2016-08-31 11:51 | HHI.PR ---
Subjective Remarks Awake and confused.No fever. Off bipap. Sat 100 on RA. Objective Vital Signs Date Time Temp Pulse Resp B/P Pulse Ox O2 Delivery O2 Flow Rate FiO2 08/31/16 10:00 48 08/31/16 08:00 60 08/31/16 07:00 100 Nasal Cannula 2.00 08/31/16 06:00 52 08/31/16 04:30 54 22 120/68 94 08/31/16 04:00 98.6 44 22 100 08/31/16 04:00 44 08/31/16 03:00 57 29 97 08/31/16 02:01 48 31 141/76 94 08/31/16 02:00 47 08/31/16 02:00 47 109 98 08/31/16 01:00 69 46 100 08/31/16 00:00 98.7 69 45 142/75 97 08/31/16 00:00 69 08/30/16 23:00 55 23 100 08/30/16 22:02 58 22 99/56 100 08/30/16 22:00 59 26 96 08/30/16 22:00 59 08/30/16 21:00 57 23 100 08/30/16 20:00 69 08/30/16 20:00 98.4 69 26 137/82 93 08/30/16 19:00 94 49 100 08/30/16 19:00 100 Nasal Cannula 2.00 08/30/16 18:29 68 31 152/82 100 08/30/16 18:00 51 26 92 08/30/16 18:00 66 08/30/16 17:00 48 20 100 08/30/16 16:15 58 28 100 08/30/16 16:01 98.5 69 24 128/58 100 08/30/16 16:01 69 24 128/58 100 08/30/16 16:00 98.5 60 22 100 08/30/16 16:00 66 08/30/16 16:00 60 22 100 08/30/16 15:45 58 17 100 08/30/16 15:30 69 21 99 08/30/16 15:15 64 18 100 08/30/16 15:00 58 19 100 08/30/16 14:45 50 19 100 08/30/16 14:30 65 34 100 08/30/16 14:15 46 18 100 08/30/16 14:00 71 37 131/68 100 08/30/16 14:00 66 08/30/16 13:45 59 19 100 08/30/16 13:30 56 27 99 08/30/16 13:15 54 23 100 08/30/16 13:00 52 23 100 08/30/16 12:00 98.3 97 30 131/65 97 08/30/16 12:00 66 I/O 08/30/16 08/30/16 08/30/16 08/31/16 08/31/16 08/31/16 07:00 15:00 23:00 07:00 15:00 23:00 Intake Total 580 ml 926 ml 634 ml 530 ml Output Total 1200 ml 1100 ml 1200 ml 900 ml Balance -620 ml -174 ml -566 ml -370 ml Intake Oral 460 ml 720 ml 500 ml 500 ml IV Total 120 ml 206 ml 134 ml 30 ml Output Urine Total 1200 ml 1100 ml 1200 ml 900 ml # Bowel Movements 0 1 Result Diagram: 08/30/16 0347 08/31/16 0313 Objective Remarks GENERAL: This is a moderately obese elderly man who is alert. He is awake HEAD, EYES, EARS, NOSE, THROAT: Head normocephalic. The pupils are reactive. The sclerae were clear. Throat clear NECK: The neck is supple without venous distention. No thyromegaly. CHEST: Decreased breath sounds with bilateral expiratory wheezes, prolonged expirations. No Crackles. HEART: Heart sounds are regular. S1 and S2. No murmur. No S3. ABDOMEN: Abdomen is soft obese without masses. No organomegaly or tenderness. EXTREMITIES: min edema. Peripheral pulses are not well-felt. NEUROLOGIC: Reflexes are 1 +. The patient is alert . Moves all. Babinski is negative. SKIN: Skin was dry and warm. Assessment and Plan Assessment and Plan IMPRESSION: 1. Hypercapnic respiratory failure.Resolved 2. COPD with asthma and chronic bronchitis. 3. History of seizure disorder. 4. History of bipolar disorder. 5. Diabetes mellitus type 2. 6. Hypertension. 7. Possible aspiration pneumonia. Plan : 1. O2 at 2L prn 2. Duonebs qid with nebulizer 3. Cont Antibiotics. 4. Up in chair as tolerated 5. Ceftin 500 mg bid x 5 days 6. D/C Bipap at HS 7. Sleep study as OP 8. Prednisone 20 mg daily 9. Transfer to [facility]. Stephan Joshua MD Aug 31, 2016 11:51
--- NOTE | 2016-08-31 14:40 | HHI.PR ---
Subjective Interval History awake alert and oriented off BIPAP elevated Potassium no other issues Vitals/Results Intake & Output 08/30/16 08/30/16 08/31/16 15:00 23:00 07:00 Intake Total 926 ml 634 ml 530 ml Output Total 1100 ml 1200 ml 900 ml Balance -174 ml -566 ml -370 ml Intake Oral 720 ml 500 ml 500 ml IV Total 206 ml 134 ml 30 ml Output Urine Total 1100 ml 1200 ml 900 ml # Bowel Movements 1 Vital Signs Vital Signs Date Time Temp Pulse Resp B/P Pulse Ox O2 Delivery O2 Flow Rate FiO2 08/31/16 12:00 58 08/31/16 10:00 48 08/31/16 08:00 60 08/31/16 07:00 100 Nasal Cannula 2.00 08/31/16 06:00 52 08/31/16 04:30 54 22 120/68 94 08/31/16 04:00 98.6 44 22 100 08/31/16 04:00 44 08/31/16 03:00 57 29 97 08/31/16 02:01 48 31 141/76 94 08/31/16 02:00 47 08/31/16 02:00 47 109 98 08/31/16 01:00 69 46 100 08/31/16 00:00 98.7 69 45 142/75 97 08/31/16 00:00 69 08/30/16 23:00 55 23 100 08/30/16 22:02 58 22 99/56 100 08/30/16 22:00 59 26 96 08/30/16 22:00 59 08/30/16 21:00 57 23 100 08/30/16 20:00 69 08/30/16 20:00 98.4 69 26 137/82 93 08/30/16 19:00 94 49 100 08/30/16 19:00 100 Nasal Cannula 2.00 08/30/16 18:29 68 31 152/82 100 08/30/16 18:00 51 26 92 08/30/16 18:00 66 08/30/16 17:00 48 20 100 08/30/16 16:15 58 28 100 08/30/16 16:01 98.5 69 24 128/58 100 08/30/16 16:01 69 24 128/58 100 08/30/16 16:00 98.5 60 22 100 08/30/16 16:00 66 08/30/16 16:00 60 22 100 08/30/16 15:45 58 17 100 08/30/16 15:30 69 21 99 08/30/16 15:15 64 18 100 08/30/16 15:00 58 19 100 08/30/16 14:45 50 19 100 CBC/BMP: 08/30/16 0347 08/31/16 0313 Lab Results Laboratory Tests Test 08/31/16 03:13 Sodium Level 139 MEQ/L Potassium Level 5.6 MEQ/L Chloride Level 100 MEQ/L Carbon Dioxide Level 37.1 MEQ/L Anion Gap 2 MEQ/L Blood Urea Nitrogen 29 MG/DL Creatinine 1.06 MG/DL Estimat Glomerular Filtration 84 ML/MIN Rate Random Glucose 230 MG/DL Calcium Level 9.4 MG/DL Physical Exam General General Appearance: Well Developed, Well Nourished, Obese Eyes Eye Exam: Pupils Equal Ears & Nose Ears & Nose Exam: Nasal Mucosa [place] Throat Throat Exam: Oral Mucosa [place] & Moist Neck Neck Exam: Neck Supple, Trachea Midline Pulmonary Resp Exam: Rhonchi, Decreased Bases Cardiology CV Exam: Regular Gastrointestinal/Abdomen GI Exam: Soft, Non-Tender, Bowel Sounds Present, Non-Distended Musculoskeletal MS Exam: Joints Intact Integumentary Skin Exam: Warm Extremeties Extremities Exam: Pedal Pulses Palpable, Trace Edema VTE Prophylaxis VTE Prophylaxis Device: SCDs Assessment/Plan Problem List: (1) Respiratory failure (2) Hyperlipidemia (3) Encephalopathy (4) HTN (hypertension) (5) VENKAT (acute kidney injury) (6) UTI (urinary tract infection) (7) Hyperkalemia (8) SIRS (systemic inflammatory response syndrome) (9) Schizophrenia (10) Seizure disorder (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 failure obtunded ? seizure, resp. failure, poss hypoventilation, ABG showed resp. acidosis. Angie called 08/24 BIPAP at HS, now on oxygen via [place] appreciate pulm and CCM input CCM signed off CT chest done, no acute findings continue duonebs/PO steroids lethargic yesterday, with resp acidosis,improved with BIPAP repeat ABG pending alt. mental status ? poss. encephalopathy, likely sec to hypercarbic resp failure and resp acidosis continue abx, follow urine cultures, negative so far CXR ? pna VENKAT renal function better continue IVF poss seizure, has seizure disorder CT head negative EEG encephalopathy B12, TSH ok, RPR pending appreciate neuro input Valproic acid 40 Depakote dc -elevated ammonia ammonia coming down on Keppra 1000 mg IV BID HTN continue Norvasc and Hydralazine no BB due to bradycardia. Schizophrenia psych input appreciated-recommendations noted. continue Seroquel recommends to dec. Invega dose due to renal dysfunction when he goes back to facility. improving Hyperkalemia kayeaxalate ordered BMP in am Heparin for DVT prophylaxis PT/ST eval ok to transfer to floor with tele D/W RN Problem Qualifiers (1) Respiratory failure: Qualified Code: J96.01 - Acute respiratory failure with hypoxia and hypercapnia (2) Hyperlipidemia: Qualified Code: E78.5 - Hyperlipidemia, unspecified hyperlipidemia type (3) HTN (hypertension): Qualified Code: I10 - Essential hypertension (4) UTI (urinary tract infection): Qualified Code: N39.0 - Urinary tract infection without hematuria, site unspecified (5) Schizophrenia: Qualified Code: F20.3 - Undifferentiated schizophrenia Indy Sanchez MD Aug 31, 2016 14:40
[2016-08-31] MEDS: SODIUM POLYSTYRENE SULFONATE SUSP 15 GM/60 ML CUP PO SCH ×2 (16:05→21:36)
[2016-08-31] MEDS: PANTOPRAZOLE SODIUM 40 MG VIAL IV PUSH SCH (16:06)
[2016-08-31] MEDS: TAMSULOSIN HCL 0.4 MG CAP PO SCH (21:35)
[2016-09-01] VITALS (17 sets, daily range): BP systolic 142–157; BP diastolic 56–85; PULSE 48–102; RESP 18–30; TEMP 98.1–98.9; O2SAT 91–94
[2016-09-01] MEDS: hydrALAZINE HCL 25 MG TAB PO SCH ×3 (06:02→22:17)
[2016-09-01] MEDS: levETIRAcetam 1000 MG INJ 100 ML IV SCH ×2 (06:02→18:16)
[2016-09-01] MEDS: INSULIN ASPART SUPPLEMENTAL SCALE SQ SCH ×4 (06:03→19:57)
[2016-09-01 07:31] LABS: BICARBONATE 35.9 MEQ/L (21.0-32.0); POTASSIUM 5.3 MEQ/L (3.5-5.1)
[2016-09-01] MEDS: SODIUM CHLORIDE 0.9% FLUSH 10 ML FLUSH IV FLUSH SCH ×2 (09:00→19:56)
[2016-09-01] MEDS: predniSONE 10 MG TAB PO SCH ×2 (09:37→19:57)
[2016-09-01] MEDS: OXYBUTYNIN CHLORIDE 5 MG TAB PO SCH ×2 (09:37→19:57)
[2016-09-01] MEDS: CEFUROXIME AXETIL 500 MG TAB PO SCH ×2 (09:37→19:56)
[2016-09-01] MEDS: DOCUSATE SODIUM 50 MG/SENNA 8.6 MG TAB PO SCH ×2 (09:37→19:56)
[2016-09-01] MEDS: QUEtiapine FUMARATE 25 MG TAB PO SCH ×2 (09:38→19:56)
[2016-09-01] MEDS: HEPARIN SODIUM - SQ 10,000 UNITS/ML VIAL SQ SCH ×2 (09:38→19:56)
--- NOTE | 2016-09-01 14:37 | HHI.PR ---
Subjective Interval History awake alert and oreinted eating lunch no acute issues no family at bed side Vitals/Results Intake & Output 08/31/16 08/31/16 09/01/16 15:00 23:00 07:00 Intake Total 132 ml 778 ml 280 ml Output Total 2600 ml 1100 ml 1300 ml Balance -2468 ml -322 ml -1020 ml Intake Oral 500 ml 250 ml IV Total 132 ml 278 ml 30 ml Output Urine Total 2600 ml 1100 ml 1300 ml # Bowel Movements 3 1 Vital Signs Vital Signs Date Time Temp Pulse Resp B/P Pulse Ox O2 Delivery O2 Flow Rate FiO2 09/01/16 12:00 95 09/01/16 12:00 98.1 93 20 151/70 92 09/01/16 10:00 99 09/01/16 08:00 80 09/01/16 08:00 98.5 71 25 145/81 93 09/01/16 07:00 94 Nasal Cannula 2.00 09/01/16 07:00 94 Room Air 09/01/16 06:00 50 09/01/16 04:00 48 09/01/16 04:00 98.3 48 30 142/68 94 09/01/16 02:00 86 09/01/16 00:00 98.7 72 24 146/85 93 09/01/16 00:00 72 08/31/16 23:00 74 28 94 08/31/16 22:35 96 Nasal Cannula 2.00 08/31/16 22:35 96 Nasal Cannula 2.00 08/31/16 22:00 53 08/31/16 22:00 53 22 171/78 08/31/16 21:00 62 22 08/31/16 20:00 98.6 91 24 120/75 91 08/31/16 20:00 91 08/31/16 19:00 80 37 08/31/16 19:00 91 Room Air 08/31/16 19:00 100 Nasal Cannula 2.00 08/31/16 18:00 53 08/31/16 18:00 84 46 113/74 08/31/16 17:00 54 42 08/31/16 16:00 68 44 130/93 08/31/16 16:00 52 08/31/16 16:00 98.2 68 17 130/93 100 CBC/BMP: 08/30/16 0347 09/01/16 0431 Lab Results Laboratory Tests Test 09/01/16 04:31 Sodium Level 141 MEQ/L Potassium Level 5.3 MEQ/L Chloride Level 103 MEQ/L Carbon Dioxide Level 35.9 MEQ/L Anion Gap 2 MEQ/L Blood Urea Nitrogen 25 MG/DL Creatinine 1.08 MG/DL Estimat Glomerular Filtration 82 ML/MIN Rate Random Glucose 214 MG/DL Calcium Level 9.3 MG/DL Physical Exam General General Appearance: Well Developed, Well Nourished, Obese Eyes Eye Exam: Pupils Equal Ears & Nose Ears & Nose Exam: Nasal Mucosa [place] Throat Throat Exam: Oral Mucosa [place] & Moist Neck Neck Exam: Neck Supple, Trachea Midline Pulmonary Resp Exam: Rhonchi, Decreased Bases Cardiology CV Exam: Regular Gastrointestinal/Abdomen GI Exam: Soft, Non-Tender, Bowel Sounds Present, Non-Distended Musculoskeletal MS Exam: Joints Intact Integumentary Skin Exam: Warm Extremeties Extremities Exam: Pedal Pulses Palpable, Trace Edema VTE Prophylaxis VTE Prophylaxis Device: SCDs Assessment/Plan Problem List: (1) Respiratory failure (2) Hyperlipidemia (3) Encephalopathy (4) HTN (hypertension) (5) VENKAT (acute kidney injury) (6) UTI (urinary tract infection) (7) Hyperkalemia (8) SIRS (systemic inflammatory response syndrome) (9) Schizophrenia (10) Seizure disorder (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 failure resp. failure, poss hypoventilation, ABG showed resp. acidosis. Angie called 08/24 BIPAP at HS prn, now on oxygen via [place] appreciate pulm and CCM input CCM signed off CT chest done, no acute findings continue duonebs/PO steroids alt. mental status ? poss. encephalopathy, likely sec to hypercarbic resp failure and resp acidosis continue abx, follow urine cultures, negative so far VENKAT renal function better continue IVF poss seizure, has seizure disorder CT head negative EEG encephalopathy B12, TSH ok, RPR pending appreciate neuro input Valproic acid 40 Depakote dc -elevated ammonia ammonia coming down on Keppra 1000 mg IV BID HTN continue Norvasc and Hydralazine no BB due to bradycardia. Schizophrenia psych input appreciated-recommendations noted. continue Seroquel recommends to dec. Invega dose due to renal dysfunction when he goes back to facility. improving Hyperkalemia kayeaxalate ordered BMP in am Heparin for DVT prophylaxis PT/ST eval ok to transfer to [facility] d/c schuler catheter d/c panning Problem Qualifiers (1) Respiratory failure: Qualified Code: J96.01 - Acute respiratory failure with hypoxia and hypercapnia (2) Hyperlipidemia: Qualified Code: E78.5 - Hyperlipidemia, unspecified hyperlipidemia type (3) HTN (hypertension): Qualified Code: I10 - Essential hypertension (4) UTI (urinary tract infection): Qualified Code: N39.0 - Urinary tract infection without hematuria, site unspecified (5) Schizophrenia: Qualified Code: F20.3 - Undifferentiated schizophrenia Indy Sanchez MD Sep 01, 2016 14:37
[2016-09-01] MEDS: PANTOPRAZOLE SODIUM 40 MG VIAL IV PUSH SCH (18:00)
[2016-09-01] MEDS: TAMSULOSIN HCL 0.4 MG CAP PO SCH (19:56)
[2016-09-02] VITALS (26 sets, daily range): BP systolic 126–143; BP diastolic 69–87; PULSE 50–98; RESP 16–20; TEMP 97.5–98.7; O2SAT 92–98
[2016-09-02] MEDS: levETIRAcetam 1000 MG INJ 100 ML IV SCH ×2 (06:45→17:43)
[2016-09-02] MEDS: hydrALAZINE HCL 25 MG TAB PO SCH ×3 (06:50→21:24)
[2016-09-02] MEDS: INSULIN ASPART SUPPLEMENTAL SCALE SQ SCH ×4 (06:50→21:20)
[2016-09-02] MEDS: CEFUROXIME AXETIL 500 MG TAB PO SCH ×2 (08:37→21:24)
[2016-09-02] MEDS: OXYBUTYNIN CHLORIDE 5 MG TAB PO SCH ×2 (08:37→21:24)
[2016-09-02] MEDS: SODIUM CHLORIDE 0.9% FLUSH 10 ML FLUSH IV FLUSH SCH ×2 (08:37→21:23)
[2016-09-02] MEDS: predniSONE 10 MG TAB PO SCH ×2 (08:38→21:24)
[2016-09-02] MEDS: HEPARIN SODIUM - SQ 10,000 UNITS/ML VIAL SQ SCH ×2 (08:38→21:25)
[2016-09-02] MEDS: DOCUSATE SODIUM 50 MG/SENNA 8.6 MG TAB PO SCH ×2 (08:38→21:24)
[2016-09-02] MEDS: QUEtiapine FUMARATE 25 MG TAB PO SCH ×2 (08:38→21:24)
--- NOTE | 2016-09-02 17:21 | HHI.PR ---
Subjective Subjective Remarks up in chair listening to [employer] music content with music for now No SOB at rest afebrile (Katie Peoples) Review of Systems Constitutional Constitutional: Fatigue (easily) Constitutional Remarks 10 point ROS done positives noted (Katie Peoples) Pulmonary Respiratory: Coughing (occasional with sputum noted), Shortness of Breath ( exertional) (Katie Peoples) Musculoskeletal MS: Weakness, Stiffness, Swelling (mild lower extremity) (Katie Peoples ) Neurologic Neurologic Remarks Pleasant confusion (Katie Peoples) Psychiatric Psychiatric: Anxiety (at times) (Katie Peoples) Vitals/Results Intake & Output 09/01/16 09/01/16 09/02/16 15:00 23:00 07:00 Intake Total 430 ml 480 ml Output Total 2600 ml 325 ml Balance -2170 ml 155 ml Intake Oral 330 ml 480 ml IV Total 100 ml Output Urine Total 2600 ml 325 ml # Voids 4 Vital Signs Vital Signs Date Time Temp Pulse Resp B/P Pulse Ox O2 Delivery O2 Flow Rate FiO2 09/02/16 16:00 58 09/02/16 16:00 98.4 75 20 129/79 96 09/02/16 15:00 98 09/02/16 14:00 86 09/02/16 13:00 92 09/02/16 12:00 72 09/02/16 12:00 98.6 93 18 129/87 95 09/02/16 11:00 80 09/02/16 10:00 84 09/02/16 09:09 94 Nasal Cannula 2.00 09/02/16 09:00 82 09/02/16 08:00 80 09/02/16 08:00 98.7 82 19 143/85 97 09/02/16 07:51 Nasal Cannula 2.00 21 09/02/16 07:00 52 09/02/16 06:00 80 09/02/16 05:00 78 09/02/16 04:00 54 09/02/16 04:00 98.7 71 20 127/69 92 09/02/16 03:00 68 09/02/16 02:00 82 09/02/16 01:00 82 09/02/16 00:05 96 Nasal Cannula 2.00 09/02/16 00:00 98.7 94 18 139/75 95 09/02/16 00:00 98 09/01/16 23:00 97 09/01/16 22:00 94 09/01/16 21:45 98.9 95 18 153/85 91 09/01/16 20:53 94 21 09/01/16 20:48 98.3 95 28 152/78 93 09/01/16 20:00 95 09/01/16 19:00 92 Room Air 09/01/16 18:00 92 (Katie Peoples) CBC/BMP: 08/30/16 0347 09/01/16 0431 Current Medications Administered Medications Medications (Trade) Dose Ordered Sig/Arpita Route PRN Reason Start Time Stop Time Status Last Admin Dose Admin Sodium Chloride (NS Flush) 2 ml UNSCH PRN IV FLUSH FLUSH AFTER USING IV ACCESS 08/24/16 11:45 08/26/16 08:58 Sodium Chloride (NS Flush) 2 ml BID IV FLUSH 08/24/16 21:00 09/02/16 08:37 Heparin Sodium (Porcine) (Heparin Inj) 5,000 units Q12HR SQ 08/24/16 21:00 09/02/16 08:38 Senna/Docusate Sodium ([place]sea-Colace) 1 tab BID PO 08/24/16 21:00 09/02/16 08:38 Clonazepam (KlonoPIN) 0.5 mg BID PO 08/24/16 22:45 Hold 08/25/16 20:04 Quetiapine Fumarate (SEROquel) 25 mg BID PO 08/24/16 22:45 09/02/16 08:38 Tamsulosin HCl (Flomax) 0.4 mg HS PO 08/24/16 22:45 09/01/16 19:56 Oxybutynin Chloride (Ditropan) 5 mg BID PO 08/25/16 21:00 09/02/16 08:37 Pantoprazole Sodium 40 mg 40 mg Q24H IV PUSH 08/25/16 18:00 09/01/16 18:00 Levetriacetam (Keppra 1000 Mg Inj) 100 ml @ 100 mls/hr Q12H IV 08/26/16 07:00 09/02/16 06:45 Amlodipine Besylate (Norvasc) 10 mg DAILY PO 08/27/16 09:00 09/02/16 08:38 Hydralazine HCl (Apresoline Inj) 20 mg Q4H PRN IV PUSH SBP>160, DBP>90 08/27/16 03:30 08/27/16 03:50 Hydralazine HCl (Apresoline) 25 mg Q8HR PO 08/28/16 14:00 09/02/16 15:19 Prednisone (Deltasone) 10 mg BID PO 08/28/16 21:00 09/02/16 08:38 Cefuroxime Axetil (Ceftin) 500 mg Q12HR PO 08/30/16 21:00 09/03/16 20:59 09/02/16 08:37 (Katie PeoplesP) Physical Exam General General Appearance: Well Developed, Well Nourished, Obese (Katie Peoples [employer]) Eyes Eye Exam: Pupils Equal (Katie Peoples [employer]) Ears & Nose Ears & Nose Exam: Nasal Mucosa [place] (Katie Peoples [employer]) Throat Throat Exam: Oral Mucosa [place] & Moist (Katie Peoples [employer]) Neck Neck Exam: Neck Supple, Trachea Midline (Katie Peoples [employer]) Pulmonary Resp Exam: Rhonchi, Decreased Bases, Diminished Breath Sounds (Katie Peoples [employer]) Cardiology CV Exam: Regular (Katie Peoples [employer]) Gastrointestinal/Abdomen GI Exam: Soft, Non-Tender, Bowel Sounds Present, Non-Distended (Katie Peoples [employer]) Musculoskeletal MS Exam: Joints Intact (Katie Peoples [employer]) Integumentary Skin Exam: Warm (Katie Peoples [employer]) Extremeties Extremities Exam: Pedal Pulses Palpable, Trace Edema (Katie Peoples [employer]) VTE Prophylaxis VTE Prophylaxis Device: SCDs (Katie Peoples. 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 failure resp. failure, poss hypoventilation, ABG showed resp. acidosis. Angie called 08/24 BIPAP at HS prn, now on oxygen via [place] appreciate pulm and CCM input CCM signed off CT chest done, no acute findings continue duonebs/PO steroids continue Activity increased, patient's up in chair today, transferred back to see [facility] last p.m. on 69 Appetite good, gradual medical trends back to his baseline Metabolic encephalopathy, likely sec to hypercarbic resp failure and resp acidosis continue abx, follow urine cultures, negative so far Seems to be back to his baseline, history of schizophrenia VENKAT renal function better, appetite good taking by mouth fluids well poss seizure, has seizure disorder CT head negative EEG done ,Medical management ammonia trending down Maintaining Keppra 1000 mg IV BID for now HTN continue Norvasc and Hydralazine no BB due to bradycardia. Pulse is stable Schizophrenia psych input appreciated-recommendations noted. continue Seroquel recommends to dec. Invega dose due to renal dysfunction when he goes back to facility. improving with less anxiety noted Hyperkalemia, trending down Treated with kayeaxalate, repeat dose today Heparin for DVT prophylaxis PT/ST eval, for possible discharge Sunday (Katie Peoples) Assessment/Plan pt is seen & examined d.w PT d/w Katie agree w above cont current tx change Keppra to po\ PT eval ss for d.c planning/possible dc to SNF in am dw RN will f/u (Bhavani Hines MD) Problem Qualifiers (1) Respiratory failure: Qualified Code: J96.01 - Acute respiratory failure with hypoxia and hypercapnia (2) Hyperlipidemia: Qualified Code: E78.5 - Hyperlipidemia, unspecified hyperlipidemia type (3) HTN (hypertension): Qualified Code: I10 - Essential hypertension (4) UTI (urinary tract infection): Qualified Code: N39.0 - Urinary tract infection without hematuria, site unspecified (5) Schizophrenia: Qualified Code: F20.3 - Undifferentiated schizophrenia Katie Peoples Sep 02, 2016 17:21 Bhavani Hines MD Sep 02, 2016 17:44
[2016-09-02] MEDS ORDERED: SODIUM POLYSTYRENE SULFONATE SUSP 15 GM/60 ML CUP PO ONE (17:30)
[2016-09-02] MEDS: PANTOPRAZOLE SODIUM 40 MG VIAL IV PUSH SCH (17:43)
[2016-09-02] MEDS: TAMSULOSIN HCL 0.4 MG CAP PO SCH (21:24)
[2016-09-02] MEDS: levETIRAcetam 500 MG TAB PO SCH (21:25)
[2016-09-03] VITALS (20 sets, daily range): BP systolic 117–133; BP diastolic 75–80; PULSE 50–100; RESP 16–20; TEMP 97.1–97.8; O2SAT 96–100
[2016-09-03 04:55] LABS: HEMATOCRIT 45.1 % (39.0-51.0); MEAN CELL VOLUME 88.1 FL (80.0-100.0); MEAN CORPUSCULAR HEMOGLOBIN 28.6 PG (27.0-34.0); MEAN CORPUSCULAR HGB CONC 32.5 % (32.0-36.0); PLATELET COUNT 145 TH/MM3 (150-450); RED BLOOD COUNT 5.12 MIL/MM3 (4.50-5.90); RED CELL DISTRIBUTION WIDTH 17.1 % (11.6-17.2); REVIEW FLAG FINAL; WHITE BLOOD COUNT 5.9 TH/MM3 (4.0-11.0)
[2016-09-03 05:16] LABS: BICARBONATE 33.8 MEQ/L (21.0-32.0); POTASSIUM 5.7 MEQ/L (3.5-5.1)
[2016-09-03] MEDS: hydrALAZINE HCL 25 MG TAB PO SCH ×2 (05:59→14:36)
[2016-09-03] MEDS: INSULIN ASPART SUPPLEMENTAL SCALE SQ SCH ×2 (06:00→11:00)
[2016-09-03] MEDS ORDERED: SODIUM POLYSTYRENE SULFONATE SUSP 15 GM/60 ML CUP PO ONE ×2 (08:30→11:00)
--- NOTE | 2016-09-03 08:34 | HHI.PR ---
Subjective Subjective Remarks sitting up listening to music no sob no cp no seizures reported no fever eating well smiling, pleasant Review of Systems Constitutional Constitutional Remarks 12 point ROS completed,limited Vitals/Results Intake & Output 09/02/16 09/02/16 09/03/16 15:00 23:00 07:00 Intake Total 770 ml 480 ml Output Total 825 ml 950 ml Balance -55 ml -470 ml Intake Oral 670 ml 480 ml IV Total 100 ml Output Urine Total 825 ml 950 ml # Voids 1 # Bowel Movements 0 Vital Signs Vital Signs Date Time Temp Pulse Resp B/P Pulse Ox O2 Delivery O2 Flow Rate FiO2 09/03/16 07:01 56 09/03/16 06:00 80 09/03/16 05:00 52 09/03/16 04:00 97.6 51 18 133/78 96 09/03/16 04:00 60 09/03/16 03:00 50 09/03/16 01:00 56 09/03/16 00:00 76 09/03/16 00:00 97.1 59 20 117/75 100 09/02/16 23:00 80 09/02/16 22:00 58 09/02/16 21:00 50 09/02/16 20:00 72 09/02/16 20:00 98.0 53 18 126/76 96 09/02/16 19:00 96 Nasal Cannula 2.00 09/02/16 19:00 51 09/02/16 18:00 76 09/02/16 17:00 84 09/02/16 16:00 58 09/02/16 16:00 98.4 75 20 129/79 96 09/02/16 15:00 98 09/02/16 14:00 86 09/02/16 13:00 92 09/02/16 12:00 72 09/02/16 12:00 98.6 93 18 129/87 95 09/02/16 11:00 80 09/02/16 10:00 84 09/02/16 09:09 94 Nasal Cannula 2.00 09/02/16 09:00 82 CBC/BMP: 09/03/16 0433 09/03/16 0433 Lab Results Laboratory Tests Test 09/03/16 04:33 White Blood Count 5.9 TH/MM3 Red Blood Count 5.12 MIL/MM3 Hemoglobin 14.7 GM/DL Hematocrit 45.1 % Mean Corpuscular Volume 88.1 FL Mean Corpuscular Hemoglobin 28.6 PG Mean Corpuscular Hemoglobin 32.5 % Concent Red Cell Distribution Width 17.1 % Platelet Count 145 TH/MM3 Mean Platelet Volume 10.1 FL Sodium Level 139 MEQ/L Potassium Level 5.7 MEQ/L Chloride Level 100 MEQ/L Carbon Dioxide Level 33.8 MEQ/L Anion Gap 5 MEQ/L Blood Urea Nitrogen 22 MG/DL Creatinine 1.06 MG/DL Estimat Glomerular Filtration 84 ML/MIN Rate Random Glucose 159 MG/DL Calcium Level 9.5 MG/DL Physical Exam General General Appearance: Well Developed, Well Nourished, No Acute Distress, Comfortable, Obese Eyes Eye Exam: Pupils Equal Ears & Nose Ears & Nose Exam: Nasal Mucosa [place] Throat Throat Exam: Oral Mucosa [place] & Moist Neck Neck Exam: Neck Supple, Trachea Midline Pulmonary Resp Exam: Decreased Bases, Diminished Breath Sounds Cardiology CV Exam: Regular Gastrointestinal/Abdomen GI Exam: Soft, Non-Tender, Bowel Sounds Present, Non-Distended Musculoskeletal MS Exam: Joints Intact Integumentary Skin Exam: Warm Extremeties Extremities Exam: Pedal Pulses Palpable, Trace Edema Neurologic Neuro Exam: Alert, Awake, Speech Clear, Moving All Extremities, No Focal Deficits Psychiatric Psych Exam: Appropriate Responses VTE Prophylaxis VTE Prophylaxis Device: SCDs Assessment/Plan Problem List: (1) Respiratory failure (2) Hyperlipidemia (3) Encephalopathy (4) HTN (hypertension) (5) VENKAT (acute kidney injury) (6) UTI (urinary tract infection) (7) Hyperkalemia (8) SIRS (systemic inflammatory response syndrome) (9) Schizophrenia (10) Seizure disorder (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 failure resp. failure, poss hypoventilation, ABG showed resp. acidosis. Angie called 08/24 BIPAP at HS prn, now on oxygen via [place] appreciate pulm and CCM input CCM signed off CT chest done, no acute findings continue duonebs/PO steroids continue appreciate pulm input, no CPAP at HS needed recommends OP f/u for sleep study stable, wean off steroids Metabolic encephalopathy, likely sec to hypercarbic resp failure and resp acidosis continue abx, follow urine cultures, negative so far Seems to be back to his baseline, history of schizophrenia VENKAT renal function better, appetite good taking by mouth fluids well renal function stable poss seizure, has seizure disorder CT head negative EEG done ,Medical management ammonia trending down continue Keppra 1000 mg PO BID appreciate neurology input HTN continue Norvasc and Hydralazine no BB due to bradycardia. Schizophrenia psych input appreciated-recommendations noted. continue Seroquel recommends to dec. Invega dose due to renal dysfunction when he goes back to facility. improving with less anxiety noted Hyperkalemia, K 5.7 today Treated with kayeaxalate, repeat dose today etiology unclear, continue to follow cont. telemetry monitoring Heparin for DVT prophylaxis PPI for GI prophylaxis continue PT, inc. activity CM for dc planning will repeat BMP in am if K back to baseline, poss dc tomorrow D/W pt D/W RN D/W Dr. Hines This patient was seen by myself and Dr. Hines, this note is written on her behalf. Problem Qualifiers (1) Respiratory failure: Qualified Code: J96.01 - Acute respiratory failure with hypoxia and hypercapnia (2) Hyperlipidemia: Qualified Code: E78.5 - Hyperlipidemia, unspecified hyperlipidemia type (3) HTN (hypertension): Qualified Code: I10 - Essential hypertension (4) UTI (urinary tract infection): Qualified Code: N39.0 - Urinary tract infection without hematuria, site unspecified (5) Schizophrenia: Qualified Code: F20.3 - Undifferentiated schizophrenia Ly Burton Sep 03, 2016 08:34
[2016-09-03] MEDS: OXYBUTYNIN CHLORIDE 5 MG TAB PO SCH (08:56)
[2016-09-03] MEDS: DOCUSATE SODIUM 50 MG/SENNA 8.6 MG TAB PO SCH (08:56)
[2016-09-03] MEDS: levETIRAcetam 500 MG TAB PO SCH (08:56)
[2016-09-03] MEDS: QUEtiapine FUMARATE 25 MG TAB PO SCH (08:56)
[2016-09-03] MEDS: predniSONE 10 MG TAB PO SCH (08:56)
[2016-09-03] MEDS: HEPARIN SODIUM - SQ 10,000 UNITS/ML VIAL SQ SCH (08:56)
[2016-09-03] MEDS: CEFUROXIME AXETIL 500 MG TAB PO SCH (08:56)
[2016-09-03] MEDS: SODIUM CHLORIDE 0.9% FLUSH 10 ML FLUSH IV FLUSH SCH (08:57)
[2016-09-03] MEDS ORDERED: HYDR-3799 PO (12:07)
[2016-09-03] MEDS ORDERED: AMLO10 PO (12:07)
[2016-09-03] MEDS ORDERED: PRED10 PO (12:07)
[2016-09-03] MEDS ORDERED: CEFU1TAB20 PO (12:07)
[2016-09-03] MEDS ORDERED: SENN1TAB PO (12:07)
[2016-09-03] MEDS ORDERED: LEVE500 PO (12:07)
[2016-09-03 15:24] LABS: BICARBONATE 32.3 MEQ/L (21.0-32.0); POTASSIUM 5.2 MEQ/L (3.5-5.1)
--- NOTE | 2016-09-03 15:47 | HHI.DS ---
Discharge Summary Admission Date Aug 25, 2016 at 01:01 Discharge Date: Sep 03, 2016 Admitting Diagnosis Sepsis, uti, hyperkalemia (1) Respiratory failure (2) Schizophrenia (3) Encephalopathy (4) UTI (urinary tract infection) (5) HTN (hypertension) (6) SIRS (systemic inflammatory response syndrome) (7) VENKAT (acute kidney injury) (8) Seizure disorder (9) Diabetes 1.5, managed as type 2 (10) Hyperkalemia (11) Hyperlipidemia (12) Hypoglycemia CBC/BMP: 09/03/16 0433 09/03/16 1409 Significant Findings Laboratory Tests Test 09/01/16 09/03/16 09/03/16 04:31 04:33 14:09 Potassium Level 5.3 MEQ/L 5.7 MEQ/L 5.2 MEQ/L (3.5-5.1) (3.5-5.1) (3.5-5.1) Carbon Dioxide Level 35.9 MEQ/L 33.8 MEQ/L 32.3 MEQ/L (21.0-32.0) (21.0-32.0) (21.0-32.0) Anion Gap 2 MEQ/L (5-15) 4 MEQ/L (5-15) Blood Urea Nitrogen 25 MG/DL (7-18) 22 MG/DL (7-18) 22 MG/DL (7-18) Estimat Glomerular Filtration 82 ML/MIN (>89) 84 ML/MIN (>89) Rate Random Glucose 214 MG/DL 159 MG/DL 210 MG/DL (74-106) (74-106) (74-106) Platelet Count 145 TH/MM3 (150-450) Imaging Last Impressions Chest X-Ray 08/29/16 0600 Signed Impressions: Service Date/Time: Monday, August 29, 2016 04:08 - CONCLUSION: No minimal platelike areas of infiltrate bilaterally, unchanged.. Armani Wong MD Chest CT 08/25/16 1233 Signed Impressions: Service Date/Time: Thursday, August 25, 2016 18:14 - CONCLUSION: 1. Tiny bilateral pleural effusions and bibasilar atelectasis. 2. Cardiomegaly. Alfredito Canada Jr., MD Head CT 08/25/16 0000 Signed Impressions: Service Date/Time: Thursday, August 25, 2016 18:08 - CONCLUSION: Normal examination. Alfredito Canada Jr., MD Hospital Course This is a 71-year-old male with past medical history history significant for seizure disorder, type 2 diabetes, asthma/COPD, anxiety, depression, schizophrenia, bipolar disorder, morbid obesity who was brought to the emergency department yesterday 08/24/16 for evaluation of lethargy and altered mental status. Patient was admitted for altered mentation secondary to sepsis (due to possible UTI and pneumonia) and hypercapnic respiratory failure. ABG on admission showed a pH of 7.23 PCO2 of 97 and PO2 of 131. Patient was placed on scheduled DuoNeb, IV Solu-Medrol and antibiotics Rocephin and azithromycin. BiPAP was initiated and pulmonology was consulted. Depakote was continued. The next day, the patient became unresponsive and a Halicat was called. His altered mentation probably secondary to worsening CO2 retention after initial improvement, there was also a question of subclinical seizures. PH was 7.29 and PCO2 82, on BiPAP. EEG done, result pending. Critical care medicine was consulted for Acute hypercapnic respiratory failure and metabolic encephalopathy. Patient was transferred to ICU. CTA of the head was negative. EEG showed encephalopathy. Patient was continued on BiPAP at night and oxygen during the day. A CT of the chest was ordered, due to were no acute findings. Patient's respiratory symptoms stabilize, he was eventually discontinued from BiPAP and continued on oxygen at 2 L. He was titrated down to oral steroids. Pulmonology recommended outpatient follow-up for sleep study. Patient was encephalopathic, at times difficult to arouse. Neurology was consulted. EEG was ordered. He was continued on Keppra, thousand milligrams IV twice a day then was changed to by mouth. CT of the head was negative. EEG showed encephalopathy. Ammonia was noted elevated, this started trending down. Psychiatry consultation was also requested to evaluate medications. Recommendations were made to decrease dose of Invega at facility due to renal dysfunction. He was continued on Seroquel. Patient was found positive for a urinary tract infection, was treated with antibiotics and cultures were followed. Cultures remain negative. Patient was initially in acute renal injury which improved with IV fluids. BMP was followed daily. We avoided nephrotoxic agents. For hypertension, he was continued on Norvasc and hydralazine. He was not able to be put on beta blockers due to bradycardia. Patient was also noted hyperkalemic, it was treated with Kayexalate. BMP was followed daily. As patient's mentation improved and respiratory status stabilized. Physical therapy was initiated. Patient was eventually transferred out of the intensive care unit. Patient was initiated on a diet and tolerated well Case management was consulted for discharge planning Patient was discharge to SNF in stable condition Pt Condition on Discharge: Stable Discharge Disposition: Discharge to SNF Discharge Instructions DIET: Follow Instructions for: Heart Healthy Diet, Diabetic Diet Speech Therapy-Diet Recommends: Pureed Fluid Restrictions: none Activities you can perform: Weight Bearing as Guilherme Other Activity Instructions: fall precautions Follow up Referrals: PCP Follow-up - 2-3 Days Psychiatry Adult - 2 Weeks Pulmonology - 2 Weeks New Medications: Amlodipine (Norvasc) 10 Mg Tab 10 MG PO DAILY htn #30 TAB Cefuroxime (Cefuroxime) 500 Mg Tab 500 MG PO Q12HR pneumonia #6 TAB Hydralazine HCl (Hydralazine HCl) 25 Mg Tablet 25 MG PO Q8HR htn #90 TAB Levetiracetam (Keppra) 500 Mg Tab 1000 MG PO Q12HR seizure #60 TAB Prednisone (Prednisone) 10 Mg Tab 10 MG PO DAILY COPD #3 TAB Sennosides-Docusate Sodium (Senna Plus 8.6-50 mg) 1 Tab Tab 1 TAB PO BID constipation #60 TAB Continued Medications: Albuterol Neb (Albuterol Neb) 2.5 Mg/3 Ml Neb 2.5 MG NEB TID NEB PRN SHORTNESS OF BREATH #60 Ref 0 NEBULE Docusate Sodium (Docusate Sodium) 100 Mg Cap 100 MG PO BID Prevent Constipation #60 Ref 0 CAP Glipizide (Glucotrol) 5 Mg Tab 5 MG PO BID Blood Sugar Management Days 30 TAB Insulin Degludec Inj (Tresiba Flextouch Pen Inj) 300 unit/3 ML Pen 1 UNITS SQ TID Blood Sugar Management #15 Ref 0 ML Oxybutynin (Ditropan) 5 Mg Tab 5 MG PO BID Urinary Symptom Managemen #60 Ref 0 TAB Paliperidone Palmitate Inj (Invega Sustenna Inj) 234 Mg/1.5 Ml Inj 234 MG IM Q28D Schizophrenia #1 Ref 0 VIAL Quetiapine (Seroquel) 25 Mg Tab 25 MG PO BID #60 Ref 0 TAB Tamsulosin (Flomax) 0.4 Mg Cap 0.4 MG PO HS Manage Prostate Problems #30 Ref 0 CAP Discontinued Medications: Amlodipine (Amlodipine) 5 Mg Tab 5 MG PO DAILY Blood Pressure Management #30 Ref 0 TAB Clonazepam (Klonopin) 0.5 Mg Tab 0.5 MG PO BID #60 Ref 0 TAB Divalproex ER (Depakote ER) 500 Mg Srinath 1500 MG PO HS Control Seizures #60 Ref 0 TAB Lisinopril (Lisinopril) 2.5 Mg Tab 2.5 MG PO DAILY #30 Ref 0 TAB Ly Burton [facility] Sep 03, 2016 15:47
== END 2016-09-03 16:37 | DRG 189 ==
LOC: NEPC 07:57 → NEDA 10:49 → INTOOBSV 10:49 → HCIN 13:24 → HIMW 23:50 → OBSVTOIN 08-25 01:01 → HCIS 09-01 21:15
PROVIDERS: ADMIT Internal Medicine; ATTEND Internal Medicine
PROC: 5A09557 Assistance with Respiratory Ventilation, Greater than 96 Consecutive Hours, Continuous Positive Airway Pressure (ICD-10-PCS; principal; 2016-08-24)
DX: J96.02 Acute respiratory failure with hypercapnia (principal); G93.41 Metabolic encephalopathy; N17.9 Acute kidney failure, unspecified; E46 Unspecified protein-calorie malnutrition; E72.20 Disorder of urea cycle metabolism, unspecified; E87.2 Acidosis; N39.0 Urinary tract infection, site not specified; F31.81 Bipolar II disorder; J98.11 Atelectasis; E87.5 Hyperkalemia; E11.65 Type 2 diabetes mellitus with hyperglycemia; N18.9 Chronic kidney disease, unspecified; I12.9 Hypertensive chronic kidney disease with stage 1 through stage 4 chronic kidney disease, or unspecified chronic kidney disease; E11.22 Type 2 diabetes mellitus with diabetic chronic kidney disease; G40.909 Epilepsy, unspecified, not intractable, without status epilepticus; J44.9 Chronic obstructive pulmonary disease, unspecified; M19.90 Unspecified osteoarthritis, unspecified site; N40.0 Benign prostatic hyperplasia without lower urinary tract symptoms; E66.01 Morbid (severe) obesity due to excess calories; E78.5 Hyperlipidemia, unspecified; J96.01 Acute respiratory failure with hypoxia; E11.649 Type 2 diabetes mellitus with hypoglycemia without coma; R00.1 Bradycardia, unspecified; F17.210 Nicotine dependence, cigarettes, uncomplicated; F20.3 Undifferentiated schizophrenia; F41.9 Anxiety disorder, unspecified; Z68.32 Body mass index [BMI] 32.0-32.9, adult; Z79.84 Long term (current) use of oral hypoglycemic drugs
CPT/HCPCS: 36600; 70450; 71010; 71250; 76937; 80048; 80053; 80164; 81001; 82140; 82550; 82607; 82805; 82948; 83605; 83690; 83735; 83880; 84132; 84443; 84484; 85025; 85027; 85610; 85730; 86592; 87040; 87086; 87641; 93005; 94002; 94003; 94640; 94664; 95819; 96365; 96366; 96368; 96375; C9113; J0360; J0456; J0610; J0696; J1644; J1815; J1953; J2543; J2920; J3370; J7030; J7050; J7070; J7512

== ENCOUNTER 2016-09-17 02:53 | Emergency (ER) | payer MEDICARE, OTHER ==
[~2016-09-17 02:53] MED LIST changes: +ALBU0.08 NEB; +AMLO10 PO; -AMLO5TAB2 PO; +CEFU1TAB20 PO; -CIPR-9 PO; -COLA100C3 PO; -DEPA500T3 PO; +DOCU100C PO; -FURO1TAB60 PO; +HYDR-3799 PO; +INSU1INJ14 SQ; +LEVE500 PO; -LISI2.5T3 PO; +PALI234P IM; -PERP8TAB4 PO; +PRED10 PO; +SENN1TAB PO; +SERO25TA PO
[2016-09-17 03:00] VITALS: PULSE 77; RESP 16; O2SAT 94
[2016-09-17 03:04] VITALS: BP 136/83; PULSE 85; RESP 16; TEMP 98.6; O2SAT 92
--- NOTE | 2016-09-17 03:27 | PD ---
HPI Chief Complaint: Respiratory Symptoms Time Seen by Provider: 03:21 Travel History International Travel<30 days: No Contact w/Intl Traveler<30days: No Traveled to known affect area: No History of Present Illness HPI The patient is a 71-year-old [place] male who presents to the emergency department via EMS for shortness of breath. According to EMS the patient is chronically on oxygen at 2-4 L at the [facility], [facility]. The patient apparently was noted to be hypoxic earlier tonight, but EMS states the patient was on a nonrebreather and a nonrebreather mask was deflated, the patient may have not have oxygen at that time. Upon arrival to the ER the patient was back on 4 L with an O2 sat of 94% . The patient denies any current chest pain, shortness breath, nausea, vomiting , or abdominal pain. However, he is a somewhat limited historian. PFSH Past Medical History Arthritis: Yes Asthma: Yes Autoimmune Disease: No Blood Disorders: No Bipolar Disorder: Yes Anxiety: Yes Depression: Yes Heart Rhythm Problems: No Cancer: No Cardiovascular Problems: Yes (HTN) High Cholesterol: No Chemotherapy: No Chest Pain: No Congestive Heart Failure: No COPD: No Cerebrovascular Accident: No Diabetes: Yes Patient Takes Glucophage: Yes Diminished Hearing: No Endocrine: Yes GERD: No Glaucoma: No Genitourinary: Yes (BPH) Headaches: No Hepatitis: No Hiatal Hernia: No Hypertension: Yes Immune Disorder: No Kidney Stones: No Musculoskeletal: Yes Neurologic: Yes ( PER EVAC HAS HX OF NERVE DEFICIT/DAMAGE) Psychiatric: Yes (SCHIZOPHRENIA, BIPOLAR) Reproductive: No Respiratory: No Migraines: No Myocardial Infarction: No Radiation Therapy: No Renal Failure: Yes Schizophrenia: Yes Seizures: Yes Sickle Cell Disease: No Sleep Apnea: No Thyroid Disease: No Ulcer: No Past Surgical History Abdominal Surgery: No AICD: No Appendectomy: No Arteriovenous Shunt: No Cardiac Surgery: No Cholecystectomy: No Ear Surgery: No Endocrine Surgery: No Eye Surgery: No Genitourinary Surgery: No Gynecologic Surgery: No Insulin Pump: No Joint Replacement: No Neurologic Surgery: No Oral Surgery: No Pacemaker: No Thoracic Surgery: Yes Other Surgery: No Social History Alcohol Use: No Tobacco Use: No (03/27 PPD) Substance Use: No Allergies-Medications (Allergen,Severity, Reaction): Coded Allergies: No Known Allergies (Verified , 08/24/16) UNABLE TO CONFIRM ALLERGIES AT THIS TIME Reported Meds & Prescriptions Reported Meds & Active Scripts Active Senna Plus 8.6-50 mg (Sennosides-Docusate Sodium) 1 Tab Tab 1 Tab PO BID Prednisone 10 Mg Tab 10 Mg PO DAILY Keppra (Levetiracetam) 500 Mg Tab 1,000 Mg PO Q12HR Hydralazine HCl 25 Mg Tablet 25 Mg PO Q8HR Cefuroxime (Cefuroxime Axetil) 500 Mg Tab 500 Mg PO Q12HR Norvasc (Amlodipine Besylate) 10 Mg Tab 10 Mg PO DAILY Glucotrol (Glipizide) 5 Mg Tab 5 Mg PO BID 30 Days Reported Albuterol Neb (Albuterol Sulfate) 2.5 Mg/3 Ml Neb 2.5 Mg NEB TID NEB PRN Invega Sustenna Inj (Paliperidone Palmitate) 234 Mg/1.5 Ml Inj 234 Mg IM Q28D Seroquel (Quetiapine Fumarate) 25 Mg Tab 25 Mg PO BID Docusate Sodium 100 Mg Cap 100 Mg PO BID Tresiba Flextouch Pen Inj (Insulin Degludec Inj) 300 unit/3 ML Pen 1 Units SQ TID Flomax (Tamsulosin HCl) 0.4 Mg Cap 0.4 Mg PO HS Ditropan (Oxybutynin Chloride) 5 Mg Tab 5 Mg PO BID Review of Systems ROS Limitations: Poor Historian Except as stated in HPI: all other systems reviewed are Neg General / Constitutional: No: Fever HENT: No: Lightheadedness Cardiovascular: No: Chest Pain or Discomfort Respiratory: Positive: Shortness of Breath Gastrointestinal: No: Nausea, Vomiting, Abdominal Pain Physical Exam Narrative GENERAL: Awake, alert, pleasant 71-year-old male who is speech is sometimes hard to understand. SKIN: Focused skin assessment warm/dry. HEAD: Atraumatic. Normocephalic. EYES: No icterus noted. ENT: No nasal bleeding or discharge. Slightly dry mucous membranes. NECK: Trachea midline. No JVD. CARDIOVASCULAR: Regular rate and rhythm. No murmur appreciated. RESPIRATORY: No accessory muscle use. Few scattered wheezes and rhonchi. No tachypnea noted. GASTROINTESTINAL: Abdomen soft, obese, no rebound tenderness. MUSCULOSKELETAL: No obvious deformities. No clubbing. No cyanosis. Minimal edema to lower extremities. NEUROLOGICAL: Awake and alert. No obvious cranial nerve deficits. Motor grossly within normal limits. Speech at times is slightly hard to understand.. PSYCHIATRIC: Appropriate mood and affect; insight and judgment normal. Data Data Last Documented VS Vital Signs Date Time Temp Pulse Resp B/P Pulse Ox O2 Delivery O2 Flow Rate FiO2 09/17/16 03:11 87 16 92 Nasal Cannula 4 09/17/16 03:04 98.6 136/83 Orders Complete Blood Count With Diff (09/17/16 03:22) Comprehensive Metabolic Panel (09/17/16 03:22) B-Type Natriuretic Peptide (09/17/16 03:22) Magnesium (Mg) (09/17/16 03:22) Iv Access Insert/Monitor (09/17/16 03:22) Ecg Monitoring (09/17/16 03:22) Oximetry (09/17/16 03:22) Oxygen Administration (09/17/16 03:22) Chest, Single Ap (09/17/16 03:22) Sodium Chloride 0.9% Flush (Ns Flush) (09/17/16 03:30) Albuterol-Ipratropium Neb (Duoneb Neb) (09/17/16 03:30) Valproic Acid (Depakene) (09/17/16 03:22) Ammonia (09/17/16 03:22) Labs Laboratory Tests Test 09/17/16 03:25 White Blood Count 5.0 TH/MM3 Red Blood Count 4.26 MIL/MM3 Hemoglobin 12.1 GM/DL Hematocrit 37.9 % Mean Corpuscular Volume 88.8 FL Mean Corpuscular Hemoglobin 28.4 PG Mean Corpuscular Hemoglobin 31.9 % Concent Red Cell Distribution Width 16.4 % Platelet Count 142 TH/MM3 Mean Platelet Volume 8.8 FL Neutrophils (%) (Auto) 56.2 % Lymphocytes (%) (Auto) 31.5 % Monocytes (%) (Auto) 10.0 % Eosinophils (%) (Auto) 1.8 % Basophils (%) (Auto) 0.5 % Neutrophils # (Auto) 2.8 TH/MM3 Lymphocytes # (Auto) 1.6 TH/MM3 Monocytes # (Auto) 0.5 TH/MM3 Eosinophils # (Auto) 0.1 TH/MM3 Basophils # (Auto) 0.0 TH/MM3 CBC Comment DIFF FINAL Differential Comment Sodium Level 142 MEQ/L Potassium Level 4.6 MEQ/L Chloride Level 98 MEQ/L Carbon Dioxide Level 43.8 MEQ/L Anion Gap 0 MEQ/L Blood Urea Nitrogen 14 MG/DL Creatinine 1.01 MG/DL Estimat Glomerular Filtration 89 ML/MIN Rate Random Glucose 162 MG/DL Calcium Level 9.7 MG/DL Magnesium Level 2.1 MG/DL Total Bilirubin 0.2 MG/DL Aspartate Amino Transf 13 U/L (AST/SGOT) Alanine Aminotransferase 28 U/L (ALT/SGPT) Alkaline Phosphatase 85 U/L Ammonia 36 MCMOL/L B-Type Natriuretic Peptide 22 PG/ML Total Protein 7.4 GM/DL Albumin 3.0 GM/DL Valproic Acid (Depakene) Level 3 MCG/ML [facility] Medical Decision Making Medical Screen Exam Complete: Yes Emergency Medical Condition: Yes Medical Record Reviewed: Yes Interpretation(s) EKG reveals normal sinus rhythm with a right bundle-branch block heart rate 86. Left anterior fascicular block. Slightly wavy baseline. Chest x-ray reveals bibasilar atelectasis, otherwise unremarkable. Laboratory Tests Test 09/17/16 03:25 White Blood Count 5.0 TH/MM3 Red Blood Count 4.26 MIL/MM3 Hemoglobin 12.1 GM/DL Hematocrit 37.9 % Mean Corpuscular Volume 88.8 FL Mean Corpuscular Hemoglobin 28.4 PG Mean Corpuscular Hemoglobin 31.9 % Concent Red Cell Distribution Width 16.4 % Platelet Count 142 TH/MM3 Mean Platelet Volume 8.8 FL Neutrophils (%) (Auto) 56.2 % Lymphocytes (%) (Auto) 31.5 % Monocytes (%) (Auto) 10.0 % Eosinophils (%) (Auto) 1.8 % Basophils (%) (Auto) 0.5 % Neutrophils # (Auto) 2.8 TH/MM3 Lymphocytes # (Auto) 1.6 TH/MM3 Monocytes # (Auto) 0.5 TH/MM3 Eosinophils # (Auto) 0.1 TH/MM3 Basophils # (Auto) 0.0 TH/MM3 CBC Comment DIFF FINAL Differential Comment Sodium Level 142 MEQ/L Potassium Level 4.6 MEQ/L Chloride Level 98 MEQ/L Carbon Dioxide Level 43.8 MEQ/L Anion Gap 0 MEQ/L Blood Urea Nitrogen 14 MG/DL Creatinine 1.01 MG/DL Estimat Glomerular Filtration 89 ML/MIN Rate Random Glucose 162 MG/DL Calcium Level 9.7 MG/DL Magnesium Level 2.1 MG/DL Total Bilirubin 0.2 MG/DL Aspartate Amino Transf 13 U/L (AST/SGOT) Alanine Aminotransferase 28 U/L (ALT/SGPT) Alkaline Phosphatase 85 U/L Ammonia 36 MCMOL/L B-Type Natriuretic Peptide 22 PG/ML Total Protein 7.4 GM/DL Albumin 3.0 GM/DL Valproic Acid (Depakene) Level 3 MCG/ML Differential Diagnosis Differential diagnosis includes sleep apnea, hypoxia, asthma exacerbation, COPD , bronchitis, pneumonia, pulmonary embolism, acute coronary syndrome. Narrative Course IV was established, labs were drawn and sent, and the patient was placed on cardiac telemetry monitoring and continuous pulse oximetry monitoring. EKG was ordered and interpreted. Chest x-ray was obtained. The patient was given 2 DuoNeb's. Chest x-ray reveals bibasilar atelectasis, otherwise unremarkable. Laboratory evaluation is unremarkable. Patient's O2 saturation back up to 96% on 4 L which is normal for the patient, he is stable for transfer back to the senior living. Diagnosis Primary Impression: Dyspnea Qualified Code: R06.00 - Dyspnea, unspecified type Patient Instructions: General Instructions Additional Instructions: Please provide the patient a copy of his lab results and x-ray results at discharge, transfer back to senior living. Return if symptoms worsen or progress. Med/Other Pt SpecificInfo: No Change to Meds Disposition: 03 DISCHARGE TO SNF (transfer back to senior living.) Condition: Stable Jani Sue MD Sep 17, 2016 03:27
[2016-09-17] MEDS ORDERED: SODIUM CHLORIDE 0.9% FLUSH 10 ML FLUSH IVF PRN (03:30)
[2016-09-17] MEDS: RESP: ALBUTEROL 2.5 MG/IPRATROPIUM 0.5 MG NEB (SCH) INH (03:34)
[2016-09-17 03:35] LABS: AUTOMATED NEUTROPHIL # 2.8 TH/MM3 (1.8-7.7); BASOPHIL % 0.5 % (0.0-2.0); EOSINOPHIL # 0.1 TH/MM3 (0-0.4); EOSINOPHIL % 1.8 % (0.0-4.0); HEMATOCRIT 37.9 % (39.0-51.0); HEMO FLAGS DIFF FINAL; LYMPH % 31.5 % (9.0-44.0); LYMPHOCYTE # 1.6 TH/MM3 (1.0-4.8); MEAN CELL VOLUME 88.8 FL (80.0-100.0); MEAN CORPUSCULAR HEMOGLOBIN 28.4 PG (27.0-34.0); MEAN CORPUSCULAR HGB CONC 31.9 % (32.0-36.0); NEUT % 56.2 % (16.0-70.0); PLATELET COUNT 142 TH/MM3 (150-450); RED BLOOD COUNT 4.26 MIL/MM3 (4.50-5.90); RED CELL DISTRIBUTION WIDTH 16.4 % (11.6-17.2)
[2016-09-17 04:04] LABS: ALT (GPT) 28 U/L (12-78); ANION GAP 0 MEQ/L (5-15); AST (GOT) 13 U/L (15-37); BICARBONATE 43.8 MEQ/L (21.0-32.0); BLOOD UREA NITROGEN 14 MG/DL (7-18); CHLORIDE 98 MEQ/L (98-107); GLOMERULAR FILTRATION RATE 89 ML/MIN (>89); MAGNESIUM 2.1 MG/DL (1.5-2.5); POTASSIUM 4.6 MEQ/L (3.5-5.1); SODIUM (NA) 142 MEQ/L (136-145)
[2016-09-17 04:06] LABS: ALKALINE PHOSPHATASE 85 U/L (45-117); TOTAL BILIRUBIN ADULT 0.2 MG/DL (0.2-1.0)
--- NOTE | 2016-09-17 04:13 | RADRPT ---
EXAM DATE/TIME: 09/17/2016 03:17 [place] COMPARISON: CHEST SINGLE AP, August 29, 2016, 4:08. INDICATIONS : Shortness of breath MEDICAL HISTORY : Diabetes mellitus type II. Hypertension Renal failure, chronic. Asthma SURGICAL HISTORY : None. ENCOUNTER: Initial ACUITY: 1 day PAIN SCORE: 7/10 LOCATION: Bilateral chest FINDINGS: A single view of the chest demonstrates bibasilar atelectasis. Heart normal in size. The cardiomedias tinal contours are unremarkable. Osseous structures are intact. CONCLUSION: Bibasilar atelectasis. Mark Peterson MD on September 17, 2016 at 4:11 Board Certified Radiologist. This report was verified electronically.
[2016-09-17 07:27] VITALS: BP 148/65; PULSE 100; RESP 17; TEMP 98.5; O2SAT 95
--- NOTE | 2016-09-17 11:51 | EKG ---
Date Performed: 09/17/2016 Time Performed: 03:05:44 PTAGE: 71 years EKG: NORMAL Sinus rhythm RIGHT BUNDLE BRANCH BLOCK LEFT ANTERIOR FASCICULAR BLOCK Since previous tracing, no significant jones ge noted ABNORMAL ECG PREVIOUS TRACING : 08/24/2016 08.19 DOCTOR: Fawad Escoto Interpretating Date/Time 09/17/2016 11:48:21
== END 2016-09-17 10:01 ==
LOC: NEPC 02:53
DX: R06.02 Shortness of breath (principal); I10 Essential (primary) hypertension; J45.909 Unspecified asthma, uncomplicated; E11.9 Type 2 diabetes mellitus without complications; Z79.4 Long term (current) use of insulin; Z79.899 Other long term (current) drug therapy; Z99.81 Dependence on supplemental oxygen
CPT/HCPCS: 71010; 80053; 80164; 82140; 83735; 83880; 85025; 93005; 94640; 94664; 99284